=== PATIENT | male | born 1960 | race Caucasian/White ===

== ENCOUNTER 2017-06-24 14:49 | Inpatient (IN) | payer MEDICAID, OTHER ==
[2017-06-24] MEDS ORDERED: methylPREDNISolone 125 MG* 2 ML VIAL IV ONE (15:30)
[2017-06-24] MEDS ORDERED: Albuterol/Ipratropium NEB.SOL* Albuterol 2.5 MG/Ipratropium 0.5 MG 3 ML INH ONE (15:30)
[2017-06-24 15:38] LABS: Mean Corpuscular HGB Conc 32 g/dl (31-36); White Blood Count 5.3 10^3/ul (3.5-10.8)
[2017-06-24 15:42] LABS: Hematocrit 70 % (42-52); Hemoglobin 22.2 g/dl (14.0-18.0); Mean Corpuscular Hemoglobin 32 pg (27-31); Mean Corpuscular Volume 99 fL (80-94); Mean Platelet Volume 9 um3 (7.4-10.4); Red Blood Count 7.01 10^6/ul (4.0-5.4); Red Cell Distribution Width 17 % (10.5-15)
[2017-06-24 15:53] LABS: Add Diff/Slide Review? Slide Review Added; Comments Flag Yes
--- NOTE | 2017-06-24 15:56 | RAD ---
HISTORY: Shortness of breath COMPARISONS: October 12, 2005 VIEWS:1: Single frontal portable view of the chest at 2:33 PM FINDINGS: LINES AND TUBES: None. CARDIOMEDIASTINAL SILHOUETTE: The cardiomediastinal silhouette is normal for portable technique. PLEURA: There are small, bilateral, left greater than right pleural effusions. LUNG PARENCHYMA: There is confluent alveolar opacification of the left lung base ABDOMEN: The upper abdomen is clear. There is no subphrenic gas. BONES AND SOFT TISSUES: No bone or soft tissue abnormalities are noted. IMPRESSION: LEFT BASILAR CONSOLIDATION WITH SMALL BILATERAL, LEFT GREATER THAN RIGHT, PLEURAL EFFUSIONS
[2017-06-24 16:02] LABS: Troponin I 0.05 ng/mL (<0.04)
[2017-06-24 16:17] LABS: Albumin 3.4 g/dL (3.2-5.2); C Reactive Protein 17.83 mg/L (< 5.00); Total Bilirubin 0.8 mg/dL (0.2-1.0)
[2017-06-24 16:48] LABS: BUN/Creatinine Ratio 15.2 (8-20); Calcium 9.1 mg/dL (8.6-10.3); EGFR Non-African American 101.8 (>60); Globulin 3.1 g/dL (2-4); Total Protein 6.6 g/dL (6.4-8.9)
[2017-06-24 16:50] LABS: Potassium 5.6 mmol/L (3.5-5.0)
[2017-06-24] MEDS ORDERED: Furosemide IV* 10 MG/ML 2 ML VIAL (20 MG) IV ONE (17:16)
[2017-06-24] MEDS ORDERED: Sodium Polystyrene ORAL.SOL* 15 GM/60 ML BTL PO ONE (17:17)
[2017-06-24] MEDS ORDERED: Thiamine IV* 100 MG/ML 2 ML VIAL IM ONE (17:27)
[2017-06-24] MEDS ORDERED: Acetaminophen TAB* 325 MG PO PRN (17:27)
--- NOTE | 2017-06-24 17:37 | PN ---
Progress Note - Progress Note Date of Service: 06/24/17 Note: I have discussed this case with Edna Beach NP. Mr Chang is a 56 yo M who has not seen a physician in over 10 years, is an alcoholic though cut down to 3 drinks/day over the last 1 month (from 18), ongoing tobacco abuse who presented to the ER with c/o severe SOB and tiredness. He was found to be markedly hypoxic, now requiring 10L supplemental O2 and markedly cyanotic with tense LE edema and markedly diminished lung sounds and gravid appearing abdomen. 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 He will be admitted to the ICU, receive IV diuresis, urgent cardiology evaluation and echocardiogram. He has numerous other findings incluidng hyponatremia (likely secondary to CHF), HTN and polycythemia likely secondary to chronic hypoxia. I have explained to the patient that he will likely be in the hospital for several days while evaluating and treating his chronic decompensated issues.
[2017-06-24] MEDS ORDERED: LORazepam TAB(*) 1 MG PO SCH (18:00)
[2017-06-24] MEDS ORDERED: Nicotine Inhaler* 10 MG AMP INH PRN (18:42)
[2017-06-24 21:41] LABS: Urine Bacteria Absent (Absent); Urine Bilirubin Negative (Negative); Urine Glucose Negative (Negative); Urine Nitrite Negative (Negative)
[2017-06-24 21:53] LABS: CO2 Carbon Dioxide 35 mmol/L (22-32); Chloride 81 mmol/L (101-111); Sodium 121 mmol/L (133-145)
[2017-06-24 21:55] LABS: Anion Gap 5 mmol/L (2-11)
[2017-06-24] MEDS: Carvedilol TAB* 3.125 MG PO SCH (22:07)
[2017-06-24] MEDS: Heparin VIAL(*) 5000 UNITS/ML VIAL (FIVE THOUSAND) SUBCUT SCH (22:07)
--- NOTE | 2017-06-24 23:19 | HP ---
HISTORY AND PHYSICAL: DATE OF ADMISSION: 06/24/17 PRIMARY CARE PROVIDER: None. ATTENDING PHYSICIAN: Zoey Salomon DO * (dictated by Fariha Beach NP) CHIEF COMPLAINT: Shortness of breath. HISTORY OF PRESENT ILLNESS: Mr. Chang is a 56-year-old male with past medical history significant for alcoholism, tobacco abuse, and hypertension who reports not seeing a physician in over 10 years. The patient states that prior to 1 month ago he drank approximately 18 beers a day and has decreased down to 3 drinks daily over the last month. The patient also reports using a pouch of [id number]-nuwa-uvg tobacco in a day and has decreased its use down to a pouch lasting him 6 to 7 days over the last month. The patient denies any fever, chills, chest pain, nausea, vomiting, urinary symptoms. He does report a productive cough with white mucus. He also reports shortness of breath that he reports is worse with movement and when lying flat he has been needing to sleep on his side. The patient also reports generalized fatigue and being able to get around less than feeling more fatigued over the last month. He also reports increasing bilateral lower extremity and increase in the size of his abdomen. Due to the patient having persistent shortness of breath and tiredness and concern of cyanosis, he decided to present to the emergency room for further evaluation of his symptoms. While in the emergency room, the patient was noted to be markedly hypoxic. He was initially requiring 15 L oxygen via OxyMask and was able to be titrated down to 10 L. The patient was found to have bilateral lower extremity edema, diminished lung sounds, and a very large abdomen. The patient had labs that were significant for BNP of 2115. He was found to be hyponatremic with sodium of 119 and hyperkalemic with potassium of 5.3. He was also found to have polycythemia with a RBC of 7.01, hemoglobin of 22.2 and hematocrit of 70. The patient had an EKG showing sinus rhythm and rate of 79. He also had a chest x- ray showing left basilar consolidation with small bilateral and left greater than right pleural effusions. Hospitalists were asked to evaluate the patient for admission. PAST MEDICAL HISTORY: Hypertension. PAST SURGICAL HISTORY: Status post right total knee replacement in 2005. HOME MEDICATIONS: 1. Multivitamin 1 tablet oral daily. 2. Aspirin 81 mg oral daily. ALLERGIES: CODEINE. FAMILY HISTORY: The patient reports that his maternal grandmother passed from coronary artery disease. His father passed at age 94 from myocardial infarction. His mother passed at age 72 from myocardial infarction. The patient denies any family history of diabetes mellitus. The patient's sister has a history of ovarian cancer. SOCIAL HISTORY: The patient reports drinking 18 beers daily until approximately a month ago when he has cut down to 3 to 6 beers daily. The patient is a heavy current smoker. He reports smoking a pouch of bvva-qgan-heu tobacco daily and decreasing over the last month down to a pouch lasting him 6 to 7 days. The patient reports occasional marijuana use. He is retired. He lives alone. His sons, Wily and Eugene Chang, will be his surrogate decision makers in the event he is unable to make decisions for himself. REVIEW OF SYSTEMS: I performed a 14-point review of systems. All the pertinent positives and negatives are mentioned in the history of present illness. The remaining review of systems is negative. PHYSICAL EXAMINATION GENERAL APPEARANCE: The patient is alert and pleasant. He appears to be in no acute distress, though he is ill appearing. VITAL SIGNS: Temperature 98.4, heart rate 80, respiratory rate 20, O2 sat 97% on 15 L via OxyMask, blood pressure 148/85. HEENT: Normocephalic, atraumatic. Pupils are equal and reactive to light. Extraocular movements are intact. RESPIRATORY: There is no accessory muscle use. Lungs are clear to auscultation bilateral, but significantly decreased. There is some scattered expiratory wheezing noted. CARDIOVASCULAR: Regular rate and rhythm. S1, S2 present. There are no murmurs , rubs or gallops heard. ABDOMEN: Large and distended, gravid appearing, nontender. Hypoactive bowel sounds were present. EXTREMITIES: There is significant lower extremity edema 2 to 3+ bilateral. DP and PT pulses are 1+ and symmetric. MUSCULOSKELETAL: There is cyanosis noted on the fingers and toes. NEUROLOGICAL: The patient is alert and oriented x4. Cranial nerves II through XII are grossly intact. PSYCHOLOGICAL: The patient is calm and cooperative. SKIN: The patient has again cyanosis on his fingers and toes in addition to redness to his bilateral lower extremities, abdomen and arms. The patient also has some cyanosis across the bridge of his nose and into his cheeks. DIAGNOSTIC STUDIES/LABORATORY DATA: Sodium 119, potassium 5.6, chloride 81, CO2 25, BUN 12, creatinine 0.79, glucose 94. White blood cell count 5.3, hemoglobin 22.2, hematocrit 70, and platelet count 111,000. Lactic acid 2.1, troponin 0.05. CRP 17.83. BNP 2115. EKG shows sinus rhythm, rate of 79. The patient has no signs of acute ischemia. There are no previous EKGs for comparison. Chest x-ray from today, radiologist's impression: Left basilar consolidation with small bilateral left greater than right pleural effusions. IMPRESSION: Mr. Chang is a 56-year-old male with past medical history significant for hypertension with no medical care for approximately the last 10 years who presents to the emergency room with complaints of shortness of breath. He will be admitted for shortness of breath and suspected alcoholic cardiomyopathy. ASSESSMENT/PLAN: 1. Shortness of breath. I suspect this is secondary to alcoholic cardiomyopathy. The patient will be monitored on telemetry. We will get an echocardiogram. He will get daily weights, strict I's and O's. We will give him some IV Lasix now, and will ask for Cardiology to consult on the patient tonight. We will also start the patient on low dose beta-joselyn tonight. 2. Acute hypoxic respiratory failure. I suspect this is secondary to the patient's cardiomyopathy. He will be provided with supplemental oxygen. 3. Elevated troponins. We will monitor the patient on telemetry. We will trend his troponins. I suspect this is secondary to demand ischemia from the patient's cardiomyopathy. 4. Hyponatremia. I suspect this is related to the patient's heart failure and fluid overload. We will diurese him and recheck his labs later this evening and again in the morning. 5. Hyperkalemia. We will give the patient Kayexalate, diurese him and recheck his labs later. Again, I suspect this is secondary to his heart failure. 6. Polycythemia. I suspect this is likely secondary to chronic hypoxia. We will recheck labs in the morning. 7. Alcohol abuse. The patient will be placed on WAM protocol. The patient has been highly advised to stop drinking alcohol due to the risk associated with further alcohol use. 8. Tobacco abuse. We will provide the patient with nicotine replacement and he has been highly advised to stop smoking. 9. Hypertension. The patient reports a history of hypertension. He has not been on medications for the last 10 years. He has been hypertensive in the emergency room. We are going to start him on a low dose Coreg b.i.d. 10. Fluids, electrolytes, and nutrition. The patient will be on low-sodium diet. 11. Code status. Full code. 12. DVT prophylaxis. The patient is a high risk and will have subcu heparin. 13. Disposition. Inpatient. TIME SPENT: Time for this admission was approximately 75 minutes and greater than half of that was spent with the patient discussing medications, past medical history and the events leading up to his arrival today, performing a physical examination. The case has been reviewed with the attending, Dr. Salomon, who agrees with the plan of care. Reviewed by FLAVIO KELLER 06/25/17 1132 [id number]/[facility] #: [id number] ELLIE
[2017-06-24 23:57] LABS: Troponin I 0.04 ng/mL (<0.04)
--- NOTE | 2017-06-25 00:01 | CONS ---
CC: Hospitalist Service CARDIOLOGY CONSULTATION NOTE: DATE OF CONSULTATION: 06/24/17 REASON FOR CONSULTATION: Shortness of breath and cyanosis. CHIEF COMPLAINT: Shortness of breath. HISTORY OF PRESENT ILLNESS: Mr. Chang is a 56-year-old gentleman, who does not see physicians regularly. He states that for the past month he has been more short of breath than usual and it has been getting progressively worse. It was very bad today so he decided to come to the emergency department to be evaluated. The patient is a heavy smoker and drinker and says a month ago, he was feeling so overall poorly that he decided to start cutting down, which he has been doing gradually. The patient denies any recent heavy salt foods and no nonsteroidal intake. The patient sleeps flat at night, but awakes very short of breath. When this happens, he stays lying flat and says he hyperventilates until it improves. He admits that his abdomen and legs have been getting more swollen, but he is vague about waking. He denies chest pain, pressure, heaviness, change in bowel or bladder habits. PAST MEDICAL HISTORY: 1. The patient has a past medical history of longstanding alcohol abuse. 2. Hypertension. 3. Smoker. 4. Based on old medical records in 2004, the patient has a history of alcohol related hepatitis, Kathy-Arteaga tear, duodenitis. In 2004, his hemoglobin was 15.4 and hematocrit of 44 and LFTs were elevated. AST of 469, ALT of 320. PAST SURGICAL HISTORY: Includes knee surgery in the distant past and distant appendectomy. OUTPATIENT MEDICATIONS: None. INPATIENT MEDICATIONS: To date include: 1. Thiamine. 2. Kayexalate. 3. Solu-Medrol. 4. Lasix. 5. Ipratropium in the emergency department. 6. Currently on subcutaneous heparin. 7. Ativan p.r.n. 8. Multivitamin with minerals. 9. Nicotine inhaler. 10. B1 tab. ALLERGIES: BEE VENOM, GLUCOSAMINE CHONDROITIN and CODEINE. 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 He has a son in the area, who is supportive and was at the bedside. FAMILY HISTORY: Significant in that his father had a pacemaker, a stroke, and in his 90s, and his mother had a history of congestive heart failure and in her 70s. He had a sister who recently of ovarian cancer. REVIEW OF SYSTEMS: Obtained. The patient denies any fevers or chills. He has an occasional cough and no recent changes. When he does cough, his sputum is millan in color and has been stable for many, many weeks. No acute changes in the sputum. As above, no orthopnea, but he gets paroxysmal nocturnal dyspnea where he feels like he is going to choke and suffocate and wakes hyperventilating. His appetite has been good. I could not elicit a history of weight loss. No hematuria or dysuria and increased abdominal girth noted. Negative for chest pain. All other 14 point review of systems unremarkable. PHYSICAL EXAMINATION: On exam, the patient is 5 feet 7 inches, weight is 282 pounds with a BMI of 44. Vitals: On arrival to the emergency department, blood pressure was 208/102, pulse is 87 and regular, oxygen saturation 65% on room air, and temperature was 97.5. Currently, the patient is on 10 L of oxygen with the saturation of 89% to 93%. Blood pressure 166/125, pulse 76 and regular, afebrile. General Appearance: The patient is an older gentleman, lying at 40 degrees with a Ventimask on. He appears chronically ill with marked duskiness of his skin and he is unkempt. Psychologically, pleasant and cooperative, talkative. Neurologically, awake, alert, and oriented to person and place. I did not evaluate for time. Skin: Lips, nail beds deeply violaceous. This extends to the face, extremities, abdomen. Interestingly, the anterior thorax appears less cyanotic than the rest of his anterior body. HEENT: Pupils are equal and round. Mucous membranes moderately moist. Neck is fixed from obesity without obvious thyromegaly or lymphadenopathy. Respirations: Distant and with fine wheezes throughout anteriorly and posteriorly. Coronary: Also distant S1 and S2. Regular without appreciable murmurs or rubs. Abdomen: Very rotund and firm, nontender. Active bowel sounds. Lower extremities: Deeply violaceous, very edematous up into the thighs. LABORATORY DATA/DIAGNOSTIC DATA: On arrival, white count 5.3, hemoglobin 22.2, hematocrit 70, mean cell volume 99, and platelets 111. Differential is unremarkable. Mild increase in the lymphs. INR 1.02, sodium 119, potassium 5.6 , chloride 81, bicarbonate 25, anion gap 13, BUN 12, creatinine 0.79. Glucose 94, lactic acid 2.1, calcium 9.1, AST 46, ALT 25, alk phos 168, troponin #1 0.05 , C- reactive protein 7.83. BNP 2115. Chest x-ray showed consolidation in the bases bilaterally and pleural effusions bilaterally, poor film overall. A 12-lead ECG done on arrival shows normal sinus rhythm, 80 beats per minute, QS axis +140. He has QS V1 through V3. ST segments unremarkable with motion artifact. Bedside echo done was a difficult study due to his body habitus with history of smoking and significant obesity, which showed a hypertensive hypertrophied left ventricle with normal EF and an enlarged right ventricle that appeared very hypokinetic. Color Doppler settings not optimal, no evidence of significant valvular insufficiency, leaflets opened well on 2D Doppler on aortic, mitral and tricuspid valves. IMPRESSION: In summary, Mr. Chang is a 56-year-old gentleman admitted with a month of progressive dyspnea, he has a history of heavy longstanding alcohol abuse as well as longstanding smoking history, he arrives with marked hyponatremia, hyperkalemia, polycythemia, and hypoxemia. In terms of cardiac contributions to the patient's shortness of breath, it does not appear that left heart dysfunction is a major player although LV diastolic dysfunction is undoubtedly contributing. Right heart failure and cor pulmonale appears significant and is a factor in leg edema and abdominal girth. Marked polycythemia that has been acquired sometime in the last 11 years and his hypoxemia could represent severe profound underlying pulmonary disease, perhaps chronic obstructive pulmonary disease, but there would be a large differential. Polycythemia to this extent can be seen with longstanding congenital heart disease such as ventricular septal defect and Eisenmenger's, but in talking with the patient he as a young man he was a distant runner, so this history would not be compatible with significant congenital cyanotic heart disease, but does not completely rule it out and he should get a full complete echo later this weekend. There is a large differential for acquired/secondary polycythemia including tumor, I would look and evaluate for possible hemochromatosis, which can give left ventricular hypertrophy such as seen on his limited echo. I would consider phlebotomy, but with the assistance of hematology, there are risks associated with this and risk of hyperviscosity and stroke in the setting of marked polycythemia as well. Pulmonary and productive cough with abnormal CXR: I would look for atypical organisms, fungus, tuberculosis in this gentleman as he is immunocompromised, but deferred to the hospitalist critical care and pulmonary in this venue. For the elevated troponins, this is very mild considering his overall presentation but we could check these serially, I am not recommending any sort of stress test at this point in time although he is at high risk for atherosclerotic disease. His family history of congestive heart failure also raises the possibility of congenital heart conditions including hypertrophic cardiomyopathies. For the hyponatremia and hyperkalemia, this raises the possibility of either renal problems or adrenal problems, but again I will defer to Medicine to evaluate this. It could be related to poor delivery to the kidneys as seen in chronic congestive heart failure as per discussions with the Hospitalist, but it seems very profound for this alone. Alcohol could well be a factor Overall, this patient has probably had many of these conditions for a long time , I would move cautiously with corrections including diuresis. I would follow pCO2s carefully as he is at risk for CO2 retention and he has probably been chronically hypoxemic and may tolerate lower levels of oxygen better than higher levels of CO2 retention. We will follow him actively with you and additional recommendations will be made pending findings with his diagnostic workup and pending his response to gentle diuresis. Full echo will be completed Tuesday06/26/17. Thank you for allowing us to assist in this nice but complex gentleman's care. [id number]/[facility] #: [id number] ELLIE
[2017-06-25] MEDS: Heparin VIAL(*) 5000 UNITS/ML VIAL (FIVE THOUSAND) SUBCUT SCH (06:02)
[2017-06-25 06:18] LABS: Comments Flag Yes; Hematocrit 68 % (42-52); Hemoglobin 21.7 g/dl (14.0-18.0); Mean Corpuscular HGB Conc 32 g/dl (31-36); Mean Corpuscular Hemoglobin 32 pg (27-31); Mean Corpuscular Volume 99 fL (80-94); Mean Platelet Volume 9 um3 (7.4-10.4); Red Blood Count 6.88 10^6/ul (4.0-5.4); Red Cell Distribution Width 17 % (10.5-15); White Blood Count 4.4 10^3/ul (3.5-10.8)
[2017-06-25 06:19] LABS: Add Diff/Slide Review? Slide Review Added
[2017-06-25 06:31] LABS: BUN/Creatinine Ratio 17.9 (8-20); Blood Urea Nitrogen 14 mg/dL (6-24); CO2 Carbon Dioxide 29 mmol/L (22-32); Calcium 8.9 mg/dL (8.6-10.3); Chloride 82 mmol/L (101-111); EGFR African American 132.9 (>60); EGFR Non-African American 103.3 (>60); Glucose 128 mg/dL (70-100)
[2017-06-25 06:36] LABS: Sodium 117 mmol/L (133-145)
[2017-06-25 06:37] LABS: Anion Gap 6 mmol/L (2-11)
[2017-06-25 07:01] LABS: Total Iron Binding Capacity 400 mcg/dL (250-450); Transferrin 286 mg/dL (203-362)
[2017-06-25 07:32] LABS: Ferritin 109.6 ng/mL (24-336)
--- NOTE | 2017-06-25 09:51 | PN ---
Subjective Date of Service: 06/25/17 Interval History: Pt is obtunded this AM. He does not answer any questions. Objective Active Medications: Acetaminophen (Tylenol Tab*) 650 mg PO Q4H PRN PRN Reason: PAIN Aspirin (Aspirin Ec Low Dose*) 81 mg PO DAILY [facility] Carvedilol (Coreg Tab*) 3.125 mg PO BID [facility] Last Admin: 06/24/17 22:07 Dose: 3.125 mg Folic Acid (Folvite Tab*) 1 mg PO DAILY [facility] Heparin Sodium (Porcine) (Heparin Vial(*)) 5,000 units SUBCUT Q8HR [facility] Last Admin: 06/25/17 06:02 Dose: 5,000 units Lorazepam (Ativan Tab(*)) 0 - 6 mg PO .PER [facility] PROTOCOL [facility] PRN Reason: Protocol Multivitamins/Minerals (Theragran/Minerals Tab*) 1 tab PO DAILY [facility] Nicotine (Nicotine Inhaler*) 10 mg INH Q2H PRN PRN Reason: CRAVING Thiamine HCl (Vitamin B-1 Tab*) 100 mg PO DAILY [facility] Vital Signs 06/24/17 06/24/17 06/24/17 17:27 17:30 17:42 Temperature 98.1 F Pulse Rate 74 75 Respiratory 20 20 Rate Blood Pressure 169/120 166/129 (mmHg) O2 Sat by Pulse 92 94 Oximetry 06/24/17 06/24/17 06/24/17 18:00 18:01 18:22 Temperature Pulse Rate 41 78 Respiratory 20 17 Rate Blood Pressure 166/129 (mmHg) O2 Sat by Pulse 85 95 Oximetry 06/24/17 06/24/17 06/24/17 18:31 18:45 19:00 Temperature Pulse Rate 78 79 76 Respiratory 21 25 22 Rate Blood Pressure 178/122 161/130 161/116 (mmHg) O2 Sat by Pulse 96 94 94 Oximetry 06/24/17 06/24/17 06/24/17 19:30 20:00 20:01 Temperature 98.3 F Pulse Rate 76 77 77 Respiratory 22 18 18 Rate Blood Pressure 166/125 176/143 (mmHg) O2 Sat by Pulse 93 85 89 Oximetry 06/24/17 06/24/17 06/24/17 20:15 20:30 20:36 Temperature Pulse Rate 82 80 Respiratory 17 22 Rate Blood Pressure 168/128 166/126 (mmHg) O2 Sat by Pulse 87 91 91 Oximetry 06/24/17 06/24/17 06/24/17 20:45 21:00 21:01 Temperature Pulse Rate 80 78 75 Respiratory 17 18 15 Rate Blood Pressure 161/126 146/116 (mmHg) O2 Sat by Pulse 89 90 92 Oximetry 06/24/17 06/24/17 06/24/17 21:15 21:31 21:47 Temperature Pulse Rate 79 81 78 Respiratory 15 21 26 Rate Blood Pressure 170/112 136/110 143/117 (mmHg) O2 Sat by Pulse 92 90 86 Oximetry 06/24/17 06/24/17 06/24/17 22:00 22:01 22:16 Temperature Pulse Rate 77 75 74 Respiratory 22 16 19 Rate Blood Pressure 157/100 144/92 (mmHg) O2 Sat by Pulse 91 89 91 Oximetry 06/24/17 06/24/17 06/24/17 22:30 22:46 23:00 Temperature Pulse Rate 79 81 77 Respiratory 18 18 17 Rate Blood Pressure 146/104 130/105 (mmHg) O2 Sat by Pulse 91 90 90 Oximetry 06/24/17 06/24/17 06/24/17 23:01 23:02 23:30 Temperature Pulse Rate 78 78 74 Respiratory 22 14 11 Rate Blood Pressure 131/97 112/88 (mmHg) O2 Sat by Pulse 90 91 87 Oximetry 06/25/17 06/25/17 06/25/17 00:00 00:01 00:35 Temperature 98.3 F Pulse Rate 72 77 75 Respiratory 17 17 11 Rate Blood Pressure 100/76 140/83 (mmHg) O2 Sat by Pulse 79 82 91 Oximetry 06/25/17 06/25/17 06/25/17 01:00 01:01 02:00 Temperature Pulse Rate 71 71 73 Respiratory 12 17 Rate Blood Pressure 124/92 (mmHg) O2 Sat by Pulse 87 88 90 Oximetry 06/25/17 06/25/17 06/25/17 02:01 02:08 03:00 Temperature Pulse Rate 75 73 Respiratory 12 13 15 Rate Blood Pressure 119/104 120/78 (mmHg) O2 Sat by Pulse 96 89 Oximetry 06/25/17 06/25/17 06/25/17 03:02 04:00 05:00 Temperature 98.0 F Pulse Rate 75 139 74 Respiratory 13 17 18 Rate Blood Pressure 117/92 (mmHg) O2 Sat by Pulse 88 81 89 Oximetry 06/25/17 06/25/17 06/25/17 05:44 06:00 06:24 Temperature Pulse Rate 80 75 74 Respiratory 17 19 16 Rate Blood Pressure 119/99 130/109 124/104 (mmHg) O2 Sat by Pulse 91 90 89 Oximetry 06/25/17 07:40 Temperature 97.9 F Pulse Rate Respiratory Rate Blood Pressure (mmHg) O2 Sat by Pulse Oximetry Oxygen Devices in Use Now: Simple Face Mask - 12L-88% Appearance: Middle aged chronically ill appearing male sitting up in bed poorly responsive to sternal rub, NAD Eyes: No Scleral Icterus Ears/Nose/Mouth/Throat: Mucous Membranes Moist Respiratory: Symmetrical Chest Expansion and Respiratory Effort, - - diminished breath sounds in all lung nova Cardiovascular: NL Sounds; No Murmurs; No JVD, RRR, - - slightly improved LE edema Abdominal: - - Abdomen is distended, soft, pt does not grimace to palpation, abdominal wall is cyanotic Extremities: No Clubbing, Cyanosis Skin: No Rash or Ulcers, No Nodules or Sclerosis Neurological: - - minimally responsive to painful stimulus Result Diagrams: 06/25/17 06:06 06/25/17 06:06 Microbiology and Other Data: Microbiology 06/25/17 00:10 Gram Stain - Final Sputum 06/24/17 18:10 Nasal Screen MRSA (PCR)(ERNIKE) - Final Nasal Mrsa Negative Assess/Plan/Problems-Billing Mr Chang is a 56 yo M who has not had any medical care in about 12 years who has a previous history of HTN and a history of ongoing tobacco and alcohol abuse who presented to the ER with c/o feeling tired, weak, SOB and cyanotic. - Patient Problems (1) Obtundation Current Visit: Yes Status: Acute Code(s): R40.1 - STUPOR SNOMED Code(s): 62930299 Comment: I suspect the patient has now developed acute hypercarbic respiratory failure in addition to chronic hypoxic respiratory failure. ABG is unable to be run currently. Will empirically place the patient on BiPAP. Dr. Vaughn to take over the care of the patient going forward. (2) Acute decompensated heart failure Current Visit: Yes Status: Acute Code(s): I50.9 - HEART FAILURE, UNSPECIFIED SNOMED Code(s): 32625818 Comment: The concern on admission was for both left and right heart failure secondary to alcohol use and probable COPD. He received 20mg IV lasix last night and had some mild improvement in his LE edema. His LV cavity however is small and currently he should not be diuresed any further. (3) Cor pulmonale, chronic Current Visit: Yes Status: Acute Code(s): I27.81 - COR PULMONALE (CHRONIC) SNOMED Code(s): 22467415 Comment: Dr. Keita performed a quick bedside echo last night and again this AM that likely reveals R heart failure with cor pulmonale. Diuresis must be done extremely carefully as his LV cavity is small. (4) COPD (chronic obstructive pulmonary disease) Current Visit: Yes Status: Acute Code(s): J44.9 - CHRONIC OBSTRUCTIVE PULMONARY DISEASE, UNSPECIFIED SNOMED Code(s): 76162385 Comment: The patient likely has COPD from his many years of smoking. ABG is unable to be run at this time due to the patient's blood being too viscous. (5) Polycythemia vera, acquired Current Visit: Yes Status: Acute Code(s): D75.1 - SECONDARY POLYCYTHEMIA SNOMED Code(s): 94704185 Comment: The patient was found to have a markedly elevated Hb and Hct. Will consult Dr. Westbrook-? evaluation (chronic hypoxia vs other cause of acquired polycythemia vera) and treatment-?phlebotomy. Continue ASA for now. (6) HTN (hypertension) Current Visit: Yes Status: Acute Code(s): I10 - ESSENTIAL (PRIMARY) HYPERTENSION SNOMED Code(s): 51749558 Comment: The patient was markedly hypertensive in the ER, now much improved with the initiation of coreg 3.125mg BID. His last pressure however is low with a systolic in the 90's. Will need to monitor his pressure closely. (7) Hyponatremia Current Visit: Yes Status: Acute Code(s): E87.1 - HYPO-OSMOLALITY AND HYPONATREMIA SNOMED Code(s): 61605375 Comment: The patient remains hyponatremic. Urine Na 24. ? secondary to beer drinkers potomania, CHF (8) Hyperkalemia Current Visit: Yes Status: Acute Code(s): E87.5 - HYPERKALEMIA SNOMED Code (s): 66740855 Comment: Cause is unclear now the lab can not run his specimen due to hemolysis. Will try to get a repeat lab later today. (9) DVT prophylaxis Current Visit: Yes Status: Acute Code(s): YMX9820 - SNOMED Code(s): 424982432 Comment: SQ heparin (10) Full code status Current Visit: Yes Status: Acute Code(s): Z78.9 - OTHER SPECIFIED HEALTH STATUS SNOMED Code(s): 913704853
[2017-06-25] MEDS ORDERED: Albuterol/Ipratropium NEB.SOL* Albuterol 2.5 MG/Ipratropium 0.5 MG 3 ML ONE (09:55)
[2017-06-25] MEDS ORDERED: Albuterol/Ipratropium NEB.SOL* Albuterol 2.5 MG/Ipratropium 0.5 MG 3 ML INH PRN (09:55)
[2017-06-25] MEDS ORDERED: methylPREDNISolone 125 MG* 2 ML VIAL IV ONE (09:56)
--- NOTE | 2017-06-25 10:18 | PN ---
Subjective Date of Service: 06/25/17 - CC: SOB Interval History: The pt is somnolent on 12 NC, unable to provide a history. Medications Active Medications: Acetaminophen (Tylenol Tab*) 650 mg PO Q4H PRN PRN Reason: PAIN Albuterol/Ipratropium (Duoneb (Albuterol 2.5 Mg/Ipratropium 0.5 Mg)) 1 neb INH Q2H PRN PRN Reason: SOB/WHEEZING Aspirin (Aspirin Ec Low Dose*) 81 mg PO DAILY [facility] Carvedilol (Coreg Tab*) 3.125 mg PO BID [facility] Last Admin: 06/24/17 22:07 Dose: 3.125 mg Folic Acid (Folvite Tab*) 1 mg PO DAILY [facility] Heparin Sodium (Porcine) (Heparin Vial(*)) 5,000 units SUBCUT Q8HR [facility] Last Admin: 06/25/17 06:02 Dose: 5,000 units Heparin Sodium (Porcine) (Heparin Vial(*)) 0 units IV .PER [facility] PRN Reason: Protocol Heparin Sodium/Dextrose (Heparin Drip 25,000 Units(*)) 25,000 units in 500 mls @ 0 mls/hr IV .NO INITIAL BOLUS [facility]; As Directed PRN Reason: Protocol Lorazepam (Ativan Tab(*)) 0 - 6 mg PO .PER [facility] PROTOCOL [facility] PRN Reason: Protocol Methylprednisolone Sodium Succinate (Solu-Medrol 40 Mg) 60 mg IV Q8H [facility] Multivitamins/Minerals (Theragran/Minerals Tab*) 1 tab PO DAILY [facility] Nicotine (Nicotine Inhaler*) 10 mg INH Q2H PRN PRN Reason: CRAVING Thiamine HCl (Vitamin B-1 Tab*) 100 mg PO DAILY [facility] Objective Vital Signs: Temp Pulse Resp BP Pulse Ox 97.9 F 74 16 124/104 89 06/25/17 07:40 06/25/17 06:24 06/25/17 06:24 06/25/17 06:24 06/25/17 06:24 Oxygen Devices in Use Now: CPAP/BiPAP - 12L-88% Appearance: Obese, lying at 30 degrees, marked violacious cyanosis of the face, extremities and abdoman, sparing the thorax. Eyes open, appears confused. Eyes: PERRLA Ears/Nose/Mouth/Throat: Mucous Membranes Moist Neck: No Thyroid Enlargement, Masses Respiratory: Symmetrical Chest Expansion and Respiratory Effort - more air movement today, wet coarse rhonchi and diffuse wheezing. Cardiovascular: NL Sounds; No Murmurs; No JVD, RRR Abdominal: - - marked drum like distension, +BS Extremities: - - Cyanotic nail beds, deep, edema of LE and upper extremities, somewhat improved. Neurological: - - somnolent, arousable, not able to answer questions. I suspect hypercarbia. Lines/Tubes/Other Access: Clean, Dry and Intact Peripheral IV Laboratory Results: 06/25/17 06:06 06/25/17 06:06 INR (Anticoag Therapy) 1.02 (0.89-1.11) 06/24/17 15:20 Total Bilirubin 0.80 mg/dL (0.2-1.0) 06/24/17 15:20 AST 46 U/L (13-39) H 06/24/17 15:20 ALT 25 U/L (7-52) 06/24/17 15:20 Alkaline Phosphatase 168 U/L (34-104) H 06/24/17 15:20 B-Natriuretic Peptide 2115 pg/mL (-100) H 06/24/17 15:20 Total Protein 6.6 g/dL (6.4-8.9) 06/24/17 15:20 Albumin 3.4 g/dL (3.2-5.2) 06/24/17 15:20 Globulin 3.1 g/dL (2-4) 06/24/17 15:20 Albumin/Globulin Ratio 1.1 (1-3) 06/24/17 15:20 06/24/17 21:25 Troponin I 0.04 H* Diagnostic Imaging: Re echo at bedside today: Confirmed RV dilation, hypertrophy and severe hypokinesis. LV hypertrophy and post diuresis LV chamber diameter appears smaller today. LVEF visually estimated at 60%, limited views. No gross valve issues. EKG Data: Monitor: NSR Assessment/Plan 56 yo with hx heavy tobacco and alcohol use, hx longstanding HTN presenting with CC of SOB, progressive over weeks found to be markedly hypoxic, cyanotic, with profound polycythemia, hyponatremia and hyperkalemia and volume overloaded. Echo evicence of Cor Pulmonale and hypertensive left heart disease. Today less alert. Points of Discussion: Cor pulmonale: -BP has dropped with diuresis. RV will need adequate preload. -I recommend not further diuresising. -Coreg will be stopped for now. Full echo will be able to be done tomorrow. LVH + HTN: -LV appears underfilled today. -Future options if BP re elevates: rate lowering CCB might be better tolerated than a beta joselyn. Pure beta joselyn might help with diastolic filling but could lead to more bronchospasm, a cardioselective BB might be preferable if trialed. Polycythemia: -doubt secondary to cardiopulmonary shunting based on history/old records. -work up in progress via hospitalists. -await hematology input. Troponin elevation: -mild, likely due to systemic hypoxia. -no indication for stress test or cardiac cath at this time. -Supportive care of other systemic problems. This patient is a high risk patient and highly complex.
[2017-06-25] MEDS: Heparin DRIP 25,000 UNITS(*) 25,000 UNITS/500 ML BAG IV SCH (10:49)
--- NOTE | 2017-06-25 10:51 | CONSULT ---
Consult Consult: Consultation Note Critical Care Requesting Physician: Dr Zoey Salomon Reason for consult: cyanosis, resp distress Limitations in history/physical: delirium, history from chart and staff. Date of consult: 06/25/2017 HPI: 56y M pmhx alcoholism but has been cutting back, tobacco abuse (rolls own tobacco), hypertension; no prior followup with a physician for 10 years. Admitted yesterday for shortness of breath on exertion. He stated he has been cutting back alcohol for the past month. He rolls his own tobacco. He presented with tachypnea, weakness. He was also cyanotic and hypoxic to 70s in the ER. Started on O2, 15L, titrated down to 10L. Initial CXR demonstrated possible left lower lobe infiltrate retrocardiac, but he remains afebrile and without elevated WBC. He was admitted to the ICU. Asked to see patient for lethargy. he appears cyanotic, more lethargic, unable to obtain history. remains on 12L facemask. dec RR. arousable though. History limited due to lethargy/delirium ROS: Limited to the delirium, resp status PMHx: HTN PSHx: right TKR 2005 Family History: CAD in grandmother. Father passed at 94yrs age from [place]. Mother passed at 72yrs age from [place]. Sister with Ovarian Ca. Social History: Alcohol use 18 beers daily up until 1 month back, now 3-6beers daily. A puch a day of tobacco to a pouch per 6-7 days. Occassional marijuana use. Lived alone. Allergies: Allergies Allergy/AdvReac Type Severity Reaction Status Date / Time Bee Venom Allergy Difficulty Verified 06/24/17 18:13 Breathing Codeine Allergy Difficulty Verified 06/24/17 18:13 Breathing Home Medications: Aspirin EC Low Dose* [Ecotrin EC Low Dose 81 MG*] 81 mg PO DAILY 06/24/17 [ History Confirmed 06/24/17] Multivitamins/Minerals TAB* [Theragran/minerals TAB*] 1 tab PO DAILY 06/24/17 [ History Confirmed 06/24/17] Tele: NSR Vitals: Vital Signs Temp 97.9 F 06/25/17 07:40 Pulse 76 06/25/17 10:08 Resp 16 06/25/17 10:01 BP 106/67 06/25/17 10:01 Pulse Ox 92 08/19/17 10:08 Intake & Output 06/24/17 06/25/17 06/25/17 18:59 06:59 18:59 Intake Total 800 Output Total 1150 Balance -350 Weight 282 lb 3.067 oz 278 lb 0.046 oz Intake: Oral 800 Output: Urine 1150 Other: Date of Last Bowel 06/24/17 Movement O2/Vent: facemask 12L; now switched to NIV 15/5, tv 400, rr 14-18, mV from 5-6 and now 8; sats 90% Infusions: heplock Current Medications: Acetaminophen (Tylenol Tab*) 650 mg PO Q4H PRN PRN Reason: PAIN Albuterol/Ipratropium (Duoneb (Albuterol 2.5 Mg/Ipratropium 0.5 Mg)) 1 neb INH Q2H PRN PRN Reason: SOB/WHEEZING Aspirin (Aspirin Ec Low Dose*) 81 mg PO DAILY BERTIN Folic Acid (Folvite Tab*) 1 mg PO DAILY BERTIN Heparin Sodium (Porcine) (Heparin Vial(*)) 0 units IV .PER PROTOCOL BERTIN PRN Reason: Protocol Heparin Sodium/Dextrose (Heparin Drip 25,000 Units(*)) 25,000 units in 500 mls @ 0 mls/hr IV .NO INITIAL BOLUS BERTIN; As Directed PRN Reason: Protocol Lorazepam (Ativan Tab(*)) 0 - 6 mg PO .PER [facility] PROTOCOL BERTIN PRN Reason: Protocol Methylprednisolone Sodium Succinate (Solu-Medrol 40 Mg) 60 mg IV Q8H BERTIN Multivitamins/Minerals (Theragran/Minerals Tab*) 1 tab PO DAILY BERTIN Nicotine (Nicotine Inhaler*) 10 mg INH Q2H PRN PRN Reason: CRAVING Thiamine HCl (Vitamin B-1 Tab*) 100 mg PO DAILY BERTIN Physical Exam: General: somnolent, nonverbal initially; cyanotic appearin in ext/face. shallow respirations.l Head: normocephalic, atraumatic HEENT: no pallor, no icterus, moist mucous membranes Neck: soft, supple, no jvd, no stridor CVS: normal rate, normal rhythm, no murmur Resp: bilateral air entry, no rhales, bilateral wheezing/rhonchi diffusely, no acc muscle use; shallow breaths initially, rr was 10 Abdomen: soft, obese, nontender, nondistended, bowel sounds present Ext: pulses+, warm, edema2+ with chronic changes Skin: intact, no breakdown, no dryness Neuro: was not very alert, awake, moves ext spontaneously; now more alert/awake after NIV, speaking more, slightly less cyanotic. Labs: Laboratory Results - last 24 hr 06/24/17 06/24/17 06/24/17 15:20 15:20 15:20 WBC 5.3 RBC 7.01 H Hgb 22.2 H Hct 70 H MCV 99 H MCH 32 H MCHC 32 RDW 17 H Plt Count 111 L MPV 9 Neut % (Auto) 76.2 Lymph % (Auto) 14.3 L [place] % (Auto) 8.3 Eos % (Auto) 0.9 Baso % (Auto) 0.3 Absolute Neuts (auto) 4.0 Absolute Lymphs (auto) 0.8 L Absolute Monos (auto) 0.4 Absolute Eos (auto) 0 Absolute Basos (auto) 0 Absolute Nucleated RBC 0.22 Nucleated RBC % 4.1 INR (Anticoag Therapy) 1.02 Patient Temperature ABG pH ABG pH (Temp Correct) ABG pCO2 ABG pCO2 (Temp Corrct ABG pO2 ABG pO2 (Temp Correct ABG HCO3 ABG O2 Saturation ABG Base Excess Respiration Rate O2 Delivery Device Ventilator Type Vent Mode FiO2 Inspiratory Time PEEP Pressure Support Pressure Control EPAP IPAP BiPAP Sodium 119 L* Potassium 5.6 H Chloride 81 L Carbon Dioxide 25 Anion Gap 13 H BUN 12 Creatinine 0.79 Est GFR ( Amer) 131.0 Est GFR (Non-Af Amer) 101.8 BUN/Creatinine Ratio 15.2 Glucose 94 Lactic Acid Calcium 9.1 Iron TIBC % Saturation Unsat Iron Binding Ferritin Total Bilirubin 0.80 AST 46 H ALT 25 Alkaline Phosphatase 168 H Troponin I 0.05 H* C-Reactive Protein 17.83 H B-Natriuretic Peptide Total Protein 6.6 Albumin 3.4 Globulin 3.1 Albumin/Globulin Ratio 1.1 Urine Color Urine Appearance Urine pH Ur Specific [place] Urine Protein Urine Ketones Urine Blood Urine Nitrate Urine Bilirubin Urine Urobilinogen Ur Leukocyte Esterase Urine WBC (Auto) Urine RBC (Auto) Urine Bacteria Ur Random Sodium Urine Glucose 06/24/17 06/24/17 06/24/17 15:20 15:20 18:50 WBC RBC Hgb Hct MCV MCH MCHC RDW Plt Count MPV Neut % (Auto) Lymph % (Auto) [place] % (Auto) Eos % (Auto) Baso % (Auto) Absolute Neuts (auto) Absolute Lymphs (auto) Absolute Monos (auto) Absolute Eos (auto) Absolute Basos (auto) Absolute Nucleated RBC Nucleated RBC % INR (Anticoag Therapy) Patient Temperature ABG pH ABG pH (Temp Correct) ABG pCO2 ABG pCO2 (Temp Corrct ABG pO2 ABG pO2 (Temp Correct ABG HCO3 ABG O2 Saturation ABG Base Excess Respiration Rate O2 Delivery Device Ventilator Type Vent Mode FiO2 Inspiratory Time PEEP Pressure Support Pressure Control EPAP IPAP BiPAP Sodium Potassium Chloride Carbon Dioxide Anion Gap BUN Creatinine Est GFR ( Amer) Est GFR (Non-Af Amer) BUN/Creatinine Ratio Glucose Lactic Acid 2.1 H* Calcium Iron TIBC % Saturation Unsat Iron Binding Ferritin Total Bilirubin AST ALT Alkaline Phosphatase Troponin I C-Reactive Protein B-Natriuretic Peptide 2115 H Total Protein Albumin Globulin Albumin/Globulin Ratio Urine Color Urine Appearance Urine pH Ur Specific [place] Urine Protein Urine Ketones Urine Blood Urine Nitrate Urine Bilirubin Urine Urobilinogen Ur Leukocyte Esterase Urine WBC (Auto) Urine RBC (Auto) Urine Bacteria Ur Random Sodium 24 Urine Glucose 06/24/17 06/24/17 06/24/17 20:30 21:25 21:25 WBC RBC Hgb Hct MCV MCH MCHC RDW Plt Count MPV Neut % (Auto) Lymph % (Auto) [place] % (Auto) Eos % (Auto) Baso % (Auto) Absolute Neuts (auto) Absolute Lymphs (auto) Absolute Monos (auto) Absolute Eos (auto) Absolute Basos (auto) Absolute Nucleated RBC Nucleated RBC % INR (Anticoag Therapy) Patient Temperature Cancelled ABG pH Cancelled ABG pH (Temp Correct) Cancelled ABG pCO2 Cancelled ABG pCO2 (Temp Corrct Cancelled ABG pO2 Cancelled ABG pO2 (Temp Correct Cancelled ABG HCO3 Cancelled ABG O2 Saturation Cancelled ABG Base Excess Cancelled Respiration Rate Cancelled O2 Delivery Device Cancelled Ventilator Type Cancelled Vent Mode Cancelled FiO2 Cancelled Inspiratory Time Cancelled PEEP Cancelled Pressure Support Cancelled Pressure Control Cancelled EPAP Cancelled IPAP Cancelled BiPAP Cancelled Sodium 121 L Potassium TNP Chloride 81 L Carbon Dioxide 35 H Anion Gap 5 BUN Creatinine Est GFR ( Amer) Est GFR (Non-Af Amer) BUN/Creatinine Ratio Glucose Lactic Acid Calcium Iron TIBC % Saturation Unsat Iron Binding Ferritin Total Bilirubin AST ALT Alkaline Phosphatase Troponin I 0.04 H* C-Reactive Protein B-Natriuretic Peptide Total Protein Albumin Globulin Albumin/Globulin Ratio Urine Color Yellow Urine Appearance Clear Urine pH 5.0 Ur Specific [place] 1.003 L Urine Protein 2+(100 mg/dl) H Urine Ketones Negative Urine Blood 1+ H Urine Nitrate Negative Urine Bilirubin Negative Urine Urobilinogen Negative Ur Leukocyte Esterase Negative Urine WBC (Auto) Trace(0-5/hpf) Urine RBC (Auto) Trace(0-2/hpf) Urine Bacteria Absent Ur Random Sodium Urine Glucose Negative 06/25/17 06/25/17 06/25/17 06:06 06:06 09:30 WBC 4.4 RBC 6.88 H Hgb 21.7 H Hct 68 H MCV 99 H MCH 32 H MCHC 32 RDW 17 H Plt Count 114 L MPV 9 Neut % (Auto) 93.6 H Lymph % (Auto) 4.2 L [place] % (Auto) 1.1 Eos % (Auto) 0 Baso % (Auto) 1.1 Absolute Neuts (auto) 4.2 Absolute Lymphs (auto) 0.2 L Absolute Monos (auto) 0 Absolute Eos (auto) 0 Absolute Basos (auto) 0 Absolute Nucleated RBC 0.28 Nucleated RBC % 6.3 INR (Anticoag Therapy) Patient Temperature Cancelled ABG pH Cancelled ABG pH (Temp Correct) Cancelled ABG pCO2 Cancelled ABG pCO2 (Temp Corrct Cancelled ABG pO2 Cancelled ABG pO2 (Temp Correct Cancelled ABG HCO3 Cancelled ABG O2 Saturation Cancelled ABG Base Excess Cancelled Respiration Rate Cancelled O2 Delivery Device Cancelled Ventilator Type Cancelled Vent Mode Cancelled FiO2 Cancelled Inspiratory Time Cancelled PEEP Cancelled Pressure Support Cancelled Pressure Control Cancelled EPAP Cancelled IPAP Cancelled BiPAP Cancelled Sodium 117 L* Potassium TNP Chloride 82 L Carbon Dioxide 29 Anion Gap 6 BUN 14 Creatinine 0.78 Est GFR ( Amer) 132.9 Est GFR (Non-Af Amer) 103.3 BUN/Creatinine Ratio 17.9 Glucose 128 H Lactic Acid Calcium 8.9 Iron TNP TIBC 400 % Saturation TNP Unsat Iron Binding TNP Ferritin 109.6 Total Bilirubin AST ALT Alkaline Phosphatase Troponin I C-Reactive Protein B-Natriuretic Peptide Total Protein Albumin Globulin Albumin/Globulin Ratio Urine Color Urine Appearance Urine pH Ur Specific [place] Urine Protein Urine Ketones Urine Blood Urine Nitrate Urine Bilirubin Urine Urobilinogen Ur Leukocyte Esterase Urine WBC (Auto) Urine RBC (Auto) Urine Bacteria Ur Random Sodium Urine Glucose Imaging: cxr 06/24 - reviewed - left consolidation ? Bedside ECHo by cardiolgoy today - dilated RV, appears hypertrophic; LV thick and small cavity. no pericardial effusion seen. Assessment: 56y M pmhx alcoholism but has been cutting back, tobacco abuse ( rolls own tobacco), hypertension; admitted for shortness of breath, cyanosis, hypoxia; this morning more cyanotic, lethargic, diffuse wheezing. Found to have polycythemia on admission. -Acute Hypoxic Respiratory Failure -Possible left lower lobe infiltrate? -Acute COPD exaccerbation -Cor Pulmonale -Polycythemia -Thrombocytopenia -Hyponatremia -Hyperkalemia -Encephelopathy, hypoxic/metabolic induced -Alcohol abuse -Tobacco Use Plan: Neuro- encephelopathy improved post NIV now. more alert. neurochecks q4h. asp prec. delirium prec. avoid bdz/sedatives for now. CVS- BP initially dropped earlier. given lasix overnight/yesterday. ECHO appears to show corpulmonale. need to rule out underlying pulmonary hypertension either from diastolic heart fialure or possible underlying obstructive lung disease. hold further diuretics. official ECHO in AM. WIll obtain CTA chest today. no BB/ACEI for now. tropoins borderline in setting of hypoxia. EKG NSR. Resp- on NIV now. started on steroids and bronchodilators. Definite significant smoking history with dilated RV, mosly likely will have severe lung disease. need PFTs at some point. CXR doesnt appear hyperinflated. CTA today to r/o PE and eval Lungs given hypoxia. Cont COPD exacc management. ABG performed now and overnight but keeps clotting. Will start heparin IV, started on asa also for polycythemia. Clinically improved after NIV. Repeat ABG or even VBG now. Start ceftriaxone, afebrile/no wbc elevation. pending CT chest. ID- afebrile, wbc normal. Ceftriaxone for now till CTA complete. GI- NPO for now while on NIV. GI prophylaxis. Renal- Cr normal. No acidosis. Noted hyperkalemia, unable to obtain repeat K today. Repeat labs being sent again. Hyponatremia in setting of elevated BNP. May be from chronic heart failure. Lasix trial given without benefit and BP dropped. May given small bolus IVF back if BP drops again. Heme- polycythemia noted . Markedly high for chronic hypoxia. Will need PCV w/u though 2004 h/h more normal. May be secondary but heme consulted for possible phlebotomy. He has hyperviscosity. Started on aspirin. Due to clotting of lab work, started on heparin IV now too. Thrombocytopenic to 115k, no bleeding noted. Endo- glycemic control. Target bs<200 Musculsk- pressure ulcer prophylaxis Wounds- none Nutrition- NPO DVT prophylaxis: compression boots, heparin IV GI prophylaxis: pepcid Central Line: no Arterial Line: no [place]edo Cathetor: no Disposition: ICU for hypoxic respiratory failure Code Status: full code Total Critical Care time is 50 minutes, excluding procedures/teaching Alfredo Vaughn MD Speech Communication Professor (Electronically Signed)
[2017-06-25 10:59] LABS: HDL Cholesterol 64.5 mg/dL; Hematocrit 70 % (42-52); Hemoglobin 22.4 g/dl (14.0-18.0); Mean Corpuscular HGB Conc 32 g/dl (31-36); Mean Corpuscular Hemoglobin 32 pg (27-31); Mean Corpuscular Volume 101 fL (80-94); Red Blood Count 6.91 10^6/ul (4.0-5.4); Red Cell Distribution Width 18 % (10.5-15); White Blood Count 5.2 10^3/ul (3.5-10.8)
[2017-06-25 11:00] LABS: Add Diff/Slide Review? Slide Review Added; Comments Flag Yes
[2017-06-25] MEDS ORDERED: Heparin VIAL(*) 5000 UNITS/ML VIAL (FIVE THOUSAND) IV SCH (11:00)
[2017-06-25 11:23] LABS: Macrocytosis 1+; Platelet Morphology Large
[2017-06-25 11:24] LABS: Add Path Review? YES; Mean Platelet Volume 9 um3 (7.4-10.4); Polychromasia 1+
[2017-06-25] MEDS: Aspirin EC Low Dose* 81 MG TAB.EC PO SCH (11:51)
[2017-06-25] MEDS: Folic Acid TAB* 1 MG PO SCH (11:56)
[2017-06-25] MEDS: Thiamine TAB* 100 MG TAB PO SCH (11:56)
[2017-06-25] MEDS: Multivitamins/Minerals TAB PO SCH (11:56)
--- NOTE | 2017-06-25 12:48 | ED ---
Andrea Parham Nikita, scribed for Lucien Méndez MD on 06/24/17 at 1507 . Shortness of Breath - HPI Summary HPI Summary: Pt is a 56 yo M presenting to the ED c/o SOB since a month ago. States he's "afraid I can't make it out the front door". Sx aggravated by exertion and lying flat and alleviated by nothing. Pt heavily smokes everyday and up until a month ago, he had 18 beers a day. He now has it down to 3 beers a day. Currently not taking any medicine. Last time he saw his PCP was 10 years ago when he had his knee surgery. Pt reports he can only sleep on his side and is concerned about cyanosis. - History of Current Complaint Chief Complaint: EDShortnessOfBreath Time Seen by Provider: 06/24/17 15:05 Hx Obtained From: Patient Onset/Duration: Lasting Weeks - 1 month ago, Still Present Current Severity: Severe Dyspnea At: Rest - Dyspnea at rest and aggravated by exertion. Aggrevating Factors: Movement Alleviating Factors: Nothing - Allergy/Home Medications Home Medications: Home Medications Aspirin EC Low Dose* [Ecotrin EC Low Dose 81 MG*] 81 mg PO DAILY 06/24/17 [ History Confirmed 06/24/17] Multivitamins/Minerals TAB* [Theragran/minerals TAB*] 1 tab PO DAILY 06/24/17 [ History Confirmed 06/24/17] PMH/Surg Hx/FS Hx/Imm Hx Endocrine/Hematology History: Denies: Hx Diabetes Cardiovascular History: Reports: Hx Hypertension Denies: Hx Coronary Artery Disease Infectious Disease History: Denies: Traveled Outside the [place] in Last 30 Days - Family History Known Family History: Positive: Cardiac Disease, Hypertension - Mother and Father's side. - Social History Lives: Alone Alcohol Use: Daily Alcohol Amount: 3 beers a day Hx Tobacco Use: Yes Smoking Status (MU): Heavy Every Day Tobacco Smoker Type: Cigarettes Have You Smoked in the Last Year: Yes Review of Systems Negative: Fever Positive: Shortness Of Breath All Other Systems Reviewed And Are Negative: Yes Physical Exam Triage Information Reviewed: Yes Vital Signs On Initial Exam: Initial Vitals Temp Pulse Resp BP 97.5 F 87 24 208/102 06/24/17 14:52 06/24/17 14:52 06/24/17 14:52 06/24/17 14:52 Vital Signs Reviewed: Yes Appearance: Positive: Well-Appearing, No Pain Distress Skin: Positive: Warm, Dry, Other - [place] Head/Face: Positive: Normal Head/Face Inspection Eyes: Positive: Normal ENT: Positive: Normal ENT inspection Neck: Positive: Supple, Nontender Respiratory/Lung Sounds: Positive: Decreased Breath Sounds - Very decreased breath sounds, Wheezes - expiratory wheezing Cardiovascular: Positive: RRR Abdomen Description: Positive: Distended - Tall, distended abdomen Bowel Sounds: Positive: Present Musculoskeletal: Positive: Normal Neurological: Positive: Normal Psychiatric: Positive: Normal, Affect/Mood Appropriate Diagnostics - Vital Signs Vital Signs Temp Pulse Resp BP 06/24/17 14:52 97.5 F 87 24 208/102 - Laboratory Lab Results: Lab Results 06/24/17 06/24/17 06/24/17 Range/Units 15:20 15:20 15:20 WBC 5.3 (3.5-10.8) 10^3/ul RBC 7.01 H (4.0-5.4) 10^6/ul Hgb 22.2 H (14.0-18.0) g/dl Hct 70 H (42-52) % MCV 99 H (80-94) fL MCH 32 H (27-31) pg MCHC 32 (31-36) g/dl RDW 17 H (10.5-15) % Plt Count 111 L (150-450) 10^3/ul MPV 9 (7.4-10.4) um3 Neut % (Auto) 76.2 (38-83) % Lymph % (Auto) 14.3 L (25-47) % [place] % (Auto) 8.3 (1-9) % Eos % (Auto) 0.9 (0-6) % Baso % (Auto) 0.3 (0-2) % Absolute Neuts (auto) 4.0 (1.5-7.7) 10^3/ul Absolute Lymphs (auto) 0.8 L (1.0-4.8) 10^3/ul Absolute Monos (auto) 0.4 (0-0.8) 10^3/ul Absolute Eos (auto) 0 (0-0.6) 10^3/ul Absolute Basos (auto) 0 (0-0.2) 10^3/ul Absolute Nucleated RBC 0.22 10^3/ul Nucleated RBC % 4.1 INR (Anticoag Therapy) 1.02 (0.89-1.11) Sodium 119 L* (133-145) mmol/L Potassium 5.6 H (3.5-5.0) mmol/L Chloride 81 L (101-111) mmol/L Carbon Dioxide 25 (22-32) mmol/L Anion Gap 13 H (2-11) mmol/L BUN 12 (6-24) mg/dL Creatinine 0.79 (0.67-1.17) mg/dL Est GFR ( Amer) 131.0 (>60) Est GFR (Non-Af Amer) 101.8 (>60) BUN/Creatinine Ratio 15.2 (8-20) Glucose 94 (70-100) mg/dL Lactic Acid (0.5-2.0) mmol/L Calcium 9.1 (8.6-10.3) mg/dL Total Bilirubin 0.80 (0.2-1.0) mg/dL AST 46 H (13-39) U/L ALT 25 (7-52) U/L Alkaline Phosphatase 168 H (34-104) U/L Troponin I 0.05 H* (<0.04) ng/mL C-Reactive Protein 17.83 H (< 5.00) mg/L B-Natriuretic Peptide ( - 100) pg/mL Total Protein 6.6 (6.4-8.9) g/dL Albumin 3.4 (3.2-5.2) g/dL Globulin 3.1 (2-4) g/dL Albumin/Globulin Ratio 1.1 (1-3) 06/24/17 06/24/17 Range/Units 15:20 15:20 WBC (3.5-10.8) 10^3/ul RBC (4.0-5.4) 10^6/ul Hgb (14.0-18.0) g/dl Hct (42-52) % MCV (80-94) fL MCH (27-31) pg MCHC (31-36) g/dl RDW (10.5-15) % Plt Count (150-450) 10^3/ul MPV (7.4-10.4) um3 Neut % (Auto) (38-83) % Lymph % (Auto) (25-47) % [place] % (Auto) (1-9) % Eos % (Auto) (0-6) % Baso % (Auto) (0-2) % Absolute Neuts (auto) (1.5-7.7) 10^3/ul Absolute Lymphs (auto) (1.0-4.8) 10^3/ul Absolute Monos (auto) (0-0.8) 10^3/ul Absolute Eos (auto) (0-0.6) 10^3/ul Absolute Basos (auto) (0-0.2) 10^3/ul Absolute Nucleated RBC 10^3/ul Nucleated RBC % INR (Anticoag Therapy) (0.89-1.11) Sodium (133-145) mmol/L Potassium (3.5-5.0) mmol/L Chloride (101-111) mmol/L Carbon Dioxide (22-32) mmol/L Anion Gap (2-11) mmol/L BUN (6-24) mg/dL Creatinine (0.67-1.17) mg/dL Est GFR ( Amer) (>60) Est GFR (Non-Af Amer) (>60) BUN/Creatinine Ratio (8-20) Glucose (70-100) mg/dL Lactic Acid 2.1 H* (0.5-2.0) mmol/L Calcium (8.6-10.3) mg/dL Total Bilirubin (0.2-1.0) mg/dL AST (13-39) U/L ALT (7-52) U/L Alkaline Phosphatase (34-104) U/L Troponin I (<0.04) ng/mL C-Reactive Protein (< 5.00) mg/L B-Natriuretic Peptide 2115 H ( - 100) pg/mL Total Protein (6.4-8.9) g/dL Albumin (3.2-5.2) g/dL Globulin (2-4) g/dL Albumin/Globulin Ratio (1-3) Result Diagrams: 06/25/17 10:35 06/25/17 10:35 Lab Statement: Any lab studies that have been ordered have been reviewed, and results considered in the medical decision making process. - Radiology Chest XR Xray Interpretation: Positive (See Comments) - LEFT BASILAR CONSOLIDATION WITH SMALL BILATERAL, LEFT GREATER THAN RIGHT, PLEURAL EFFUSIONS Radiology Interpretation Completed By: Radiologist - EKG 1605 Cardiac Rate: NL - 79 bpm EKG Rhythm: Sinus Rhythm EKG Interpretation: Q complexes in V1-V3 which are likely old MIs Course/Dx - Course Course Of Treatment: Mr. Chang presented to the ED with the subjective C/O SOB and the objective finding of hypoxia He has not taken good care of himself and has maintained several lifestyle stressors for years. His situation is very complicated and he was initially stabilized with high flow O2 while his W/U commenced. The hospitalists were asked to get involved early as he will clearly need to be hospitalized at this time. - Diagnoses Provider Diagnoses: Acute respiratory failure with hypoxia, Hyponatremia, Polycythemia - Physician Notifications Discussed Care of Patient With: Zoey Salomon Time Discussed With Above Provider: 16:08 Instructed by Provider To: Other - Dr. Salomon will evaluate the pt in the ED. Upon evaluation at 1708, pt will be admitted to the ICU. - Critical Care Time Critical Care Time: 30-74 min Discharge - Discharge Plan Condition: Stable Disposition: ADMITT[facility] TO [facility] The documentation as recorded by the Andrea berg Nikita accurately reflects the service I personally performed and the decisions made by , Lucien Méndez MD.
[2017-06-25] MEDS ORDERED: Propofol* 100 ML ONE (13:47)
[2017-06-25] MEDS ORDERED: Norepinephrine 16MCG/ML IVPRE* 4,000 MCG/250 ML BAG IV ONE (13:47)
[2017-06-25] MEDS ORDERED: Etomidate* 2 MG/ML 10 ML VIAL IV ONE (13:49)
[2017-06-25] MEDS ORDERED: Propofol* 10 MG/ML 20 ML BTL IV PUSH ONE (13:57)
[2017-06-25] MEDS ORDERED: Etomidate* 2 MG/ML 20 ML VIAL (40 MG) ONE (13:57)
[2017-06-25] MEDS: Propofol* 100 ML IV SCH ×4 (14:00→22:00)
[2017-06-25] MEDS ORDERED: Norepinephrine 16MCG/ML IVPRE* 4,000 MCG/250 ML BAG IV SCH (14:00)
[2017-06-25] MEDS ORDERED: Midazolam* 1 MG/ML 2 ML VIAL (2 MG) ONE (14:24)
--- NOTE | 2017-06-25 14:35 | CONS ---
CONSULTATION REPORT: DATE OF CONSULT: REFERRING PHYSICIAN: Dr. Salomon. REASON FOR CONSULTATION: Erythrocytosis. History from chart. The patient is not responsive. HISTORY OF PRESENT ILLNESS: Mr. Chang is a 56-year-old male with a history of alcohol, tobacco abuse, as well as hypertension. No medical care over the past 10 years. He presented to the emergency room with progressive shortness of breath, worse with movement when he is lying flat. He also had a history of generalized fatigue that was progressive for approximately 1 month and increasing swelling in the legs. He has subjective history of heavy alcohol, but says he has been cutting down, but had reported decreased drinking over the past month. History of heavy tobacco use with rolling his own tobacco, one pouch of tobacco every 6 to 7 days. On presentation to the emergency room, he was markedly hypoxic, placed on 15 L oxygen by face mask, bilateral lower extremity edema, decreased breath sounds. He was hypokalemic with sodium of 119 , potassium 5.3, hematocrit of 70, hemoglobin of 22. He had a mild thrombocytopenia of around 115 and normal white count. He was subsequently admitted to the intensive care unit where he has been placed on BiPAP. He has been seen by Cardiology after an echocardiogram showed cor pulmonale and hypertensive left heart disease. He has had a negative troponin and elevated BNP of 2000. Urine with +2 protein and a PTT at 82 seconds. Hematology is consulted for polycythemia. We have no blood counts in our computer and last chart record of blood work was in 2004. PAST MEDICAL HISTORY: Hypertension. PAST SURGICAL HISTORY: Total knee replacement in 2005. MEDICATIONS: I am not sure he is taking anything at home. ALLERGIES: CODEINE. FAMILY HISTORY: Per chart. Maternal grandmother had coronary disease. Father at 94 of [place]. Mother had a heart attack at 72. SOCIAL HISTORY: Drinking 18 beers daily until a month ago per his report. Now down to 3 to 6 beers a day. Heavy current smoker. Lives alone. Two sons, who are surrogate decision makers. REVIEW OF SYSTEMS: Could not be obtained secondary to him being unresponsive. PHYSICAL EXAMINATION: Temperature 97.9, BP 132/94, heart rate 78, respirations 18, he is on a face mask. Skin: Broad erythema on his face, abdomen, and all extremities. He appears cyanotic and extremities are cold to the touch. Neuro : Not responsive. Pulmonary: Poor breath sounds. Obese. Heart: S1 and S2, cannot hear any murmurs. Abdomen: Obese, nontender, but cannot tell if there is hepatosplenomegaly. LABORATORY DATA: As noted above. His white cells of 5.2, hemoglobin 22, hematocrit 70, platelets 95, and MCV of 101. Other blood work noted above. Blood film: [facility] WBC morphology, density of RBC precludes further comment. ASSESSMENT AND PLAN: A 56-year-old male presents with erythrocytosis as well as hypoxia. He is obese, heavy alcohol and heavy smoking. Appears to have deteriorated fairly rapidly and is unresponsive on my exam today. Differential diagnosis for erythrocytosis includes secondary polycythemia from chronic hypoxia, although he has fairly marked elevation in hematocrit, could be polycythemia vera with a primary erythrocytosis and this could explain his thrombocytopenia. Could have a smoking related renal cell cancer with erythropoietin secretion. His macrocytosis could be from primary marrow disorder or heavy alcohol use, thrombocytopenia could be from heavy alcohol use , primary marrow disease or liver damage and splenomegaly. Also given hyponatremia, hypoxia, question of a poisoning could be on the differential with carbon monoxide. He seems at risk for immediate decompensation from right heart failure and cor pulmonale. 1. Given the severity of polycythemia, therapeutic phlebotomy is reasonable. Viscosity of blood at Hct > 65% will outweigh benefits of additional oxygen capacity even in secondary polycythemia. Goal would be hematocrit of 60%. I would take off 1 unit today and potentially daily until he gets to 60%. 2. I will send FISH for JAK2 and erythropoietin level as well as iron studies and B12. 3. Ultrasound of the kidneys as well as liver and spleen to look for splenomegaly as well as renal tumors. Splenomegaly could be seen either from liver damage or polycythemia. 4. Repeat his PTT with a peripheral stick to see if that is accurate. If so, it would be lupus anticoagulant. 5. We will continue to follow closely while he is in the hospital. [id number]/[facility] #: [id number] ELLIE
--- NOTE | 2017-06-25 15:27 | RAD ---
HISTORY: Tube placement COMPARISONS: June 24, 2017 VIEWS:1: Single frontal portable view of the chest at 3:08 PM the right costophrenic angle is cut off. FINDINGS: LINES AND TUBES: A right internal jugular venous catheter is noted with the tip overlying the expected location of the cavoatrial junction. An endotracheal tube is noted with the tip at the clavicles and the rylie. A gastric tube is noted. The tip is below the [id number] of the current examination but is below the diaphragm. CARDIOMEDIASTINAL SILHOUETTE: The cardiac mediastinal silhouette is obscured PLEURA: There is complete opacification of left hemithorax. LUNG PARENCHYMA: There is complete opacification of left hemithorax. ABDOMEN: The upper abdomen is clear. There is no subphrenic gas. BONES AND SOFT TISSUES: No bone or soft tissue abnormalities are noted. IMPRESSION: 1. LINES AND TUBES ABOVE. 2. INTERVAL DEVELOPMENT OF COMPLETE OPACIFICATION OF THE LEFT HEMITHORAX WHICH MAY INDICATE COMPLETE CONSOLIDATION OF THE LUNG VERSUS A LARGE PLEURAL EFFUSION.
[2017-06-25] MEDS ORDERED: Albuterol 2.5 MG/3 ML NEB.SOL* (0.083%) ONE (15:42)
[2017-06-25] MEDS ORDERED: Acetylcysteine INHALATION SOL* 200 MG/ML NEB.SOLN 10 ML ONE (15:42)
--- NOTE | 2017-06-25 15:51 | PN ---
Progress Note - Progress Note Date of Service: 06/25/17 Note: Endotracheal Intubation Procedure Note Indication: hypoxic resp failure Procedure done emergently. Prior labs/imaging/history reviewed as needed. Patient preoxygenated/denitrogenated with 100% FiO2 using NIV Patient was medicated with etomidate 20mg, propofol 40mg (post) for sedation Visualization of vocal cords with Grade 1 view obtained using MAC 4 glidescope. 8.0 ETT was passed through the vocal cords under direct visualization and confirmed with condensation, chest rise with bilateral breath sounds and positive color change x3 on qualitative capnography. ETT was secured at 23 cm at lip. CXR post - ett 4-5cm above rylie, left side opacified/collapsed, right IJ in place Patient tolerated procedure without immediate complication. Alfredo Vaughn MD Bun Icer (electronically signed)
--- NOTE | 2017-06-25 15:53 | PN ---
Progress Note - Progress Note Date of Service: 06/25/17 Note: Central Line Procedure Note Indication: respiratory failure, poor vascular access Consent was emergent , placed in bedside chart. - Prior labs/history was reviewed prior to procedure - Full sterile precautions with chlorhexidine/full drapes/gowns/gloves utilized - Right IJ vein visualized with ultrasound - Vessel accessed under ultrasound guidance with return of nonpulsatile blood. A guidewire was passed into vessel and confirmed in vessel with ultrasound. 1 attempt was made to access vessel. Vessel was dilated and cathetor was passed over wire into vessel. All ports demonstrated good blood return and flushed. Catheter was sutured to site and dressing applied Adequate hemostasis was achieved, EBL 4-5 cc No immediate complications noted, patient tolerated procedure well. CXR - RIJ in place, no PTX on right; noted left sided collapse, line moving toward midline with mediastinal shift to left due to collapse. Alfredo Vaughn MD Livestock Inspector (electronically signed)
--- NOTE | 2017-06-25 15:57 | PN ---
Progress Note - Progress Note Date of Service: 06/25/17 Note: Bronchoscopy Procedure Note Indication: resp failure, hypoxia, left lung collapse Procedure was emergent, explained to brother at bedside. Risks of procedure explained to him. Patient remained hypoxic post intubation on peep of 14, 100%, sats in upper 80s only; CXR with left sided collapse. EMergent bronch to be done for lavage. Prior labs/imaging reviewed before procedure. Patient oxygenated with 100% Fi02, on VC ventilation Propofol for sedation and analgesia. Given 2mg versed IV due to dyssynchrony. Scope inserted via ETT tube; AMbuscop 5.0 used for bronchoscopy. FINDINGS -ETT clear, in good position above rylie ~4-5cm -Excessive secretions noted coming from the left bronchus. Suctioning and BAL done in lower and upper segments, some large mucous plugs were suctioned out. Clear plugs and secretions being suctioned/lavaged. No blood. -No endobronchial lesions No immediate complications during the procedure Post procedure, sats still in mid-upper 80s, no change in hemodyn status. for CTA chest Alfredo Vaughn MD Area Counselor (electronically signed)
[2017-06-25] MEDS ORDERED: NS 0.9% 500 ML BAG* 500 ML IV ONE (16:00)
--- NOTE | 2017-06-25 16:00 | PN ---
Progress Note - Progress Note Date of Service: 06/25/17 Note: Patient becoming more lethargic, more difficult to arouse at times. Cyanosis has improved but not resolved. On NIV, TV 300-400 at times. Sometimes he wakes up and appears allert but then other times poor MV and difficult to arouse. Sats were more in upper 80s. Discussed with brother at bedside, decision to intubate for progresisve respiratory failure. Intubated by glidescope. Central line placed Sats did not improved despite 100% fio2 and peep of 14; peak pressures 33 on vent; good minute ventilation. Propofol started, vent synchrony achieved No sig improvement. CXR obtained showing left sided collapse, emergent bronch performed with BAL, but sats only slowly improving. Bedside USG chest was done prior to bronch and no effusion noted on left, just A -lines diffusely, cardiac sillhouetter more proximal to chest wall. Discussed with brother current status and findings. Needs CTA of chest still IV abx started for CAP coverage. obtain ABG now again. Cyanosis has improved after intubation, face more pink now, distal hands more on right cyanotic than the left. Improvement with intubation. Total Critical Care time 35 minutes, not including procedures. Total critical care time for the day so far 85 minutes. Alfredo Vaughn Production Cloth Cutter (electronically signed)
[2017-06-25 16:43] LABS: Total Iron Binding Capacity 286 mcg/dL (250-450); Transferrin 204 mg/dL (203-362)
[2017-06-25 16:52] LABS: FIO2 100
[2017-06-25 16:56] LABS: PCO2 Arterial 44 mmHg (35-45)
[2017-06-25 16:59] LABS: Ferritin 99.8 ng/mL (24-336)
[2017-06-25 17:04] LABS: Vitamin B12 616 pg/mL (180-914)
[2017-06-25] MEDS ORDERED: fentaNYL* 50 MCG/ML 2 ML VIAL (100 MCG VIAL) ONE (17:40)
--- NOTE | 2017-06-25 17:40 | RAD ---
HISTORY: Hypoxia, cyanosis, polycythemia COMPARISONS: None TECHNIQUE: Multiple contiguous axial CT scans of the chest were obtained after the administration of nonionic intravenous contrast, timed to the pulmonary arterial phase of contrast enhancement.. Coronal and sagittal multiplanar reformations are also submitted for review. FINDINGS: The study is limited by patient motion artifact. NECK AND THYROID: The lower neck and thyroid are unremarkable. CHEST WALL: There is no lower cervical, axillary, or supraclavicular lymphadenopathy by size criteria. HEART AND PERICARDIUM: The heart is unremarkable. AORTA AND PULMONARY VASCULATURE: There is no pulmonary arterial filling defect to suggest pulmonary embolism. There is no linear filling defect within the aorta to suggest aortic dissection. MEDIASTINUM: There is no mediastinal lymphadenopathy by size criteria. RYANN: There is no hilar lymphadenopathy by size criteria. AIRWAY AND ESOPHAGUS: An endotracheal tube is noted. A gastric tube is noted. LUNG PARENCHYMA: There is complete atelectasis of the left lung. There is compressive atelectasis of the right lung PLEURA: There are moderate bilateral pleural effusions. UPPER ABDOMEN: There is a trace amount of ascites. BONES AND SOFT TISSUES: Degenerative changes are noted of the spine OTHER: A right internal jugular venous catheter is noted IMPRESSION: 1. NO PULMONARY ARTERIAL FILLING DEFECT TO SUGGEST PULMONARY EMBOLISM. 2. COMPLETE ATELECTASIS OF THE LEFT LUNG. 3. COMPRESSIVE ATELECTASIS OF THE RIGHT LUNG BASE. 4. BILATERAL PLEURAL EFFUSIONS. 5. TRACE ASCITES.
[2017-06-25] MEDS ORDERED: Midazolam* 1 MG/ML 10 ML VIAL (10 MG) ONE (17:43)
--- NOTE | 2017-06-25 18:26 | PN ---
Progress Note - Progress Note Date of Service: 06/25/17 Note: Arterial Line Procedure Note Indication: hypoxic resp failure Consent was emergent , placed in bedside chart. - Prior labs/history was reviewed prior to procedure - Full sterile precautions with chlorhexidine/full drapes/gowns/gloves utilized - right radial artery visualized with US - Vessel accessed with return of pulsatile blood. 1 attempt was made to access vessel. A cathetor was threaded over wire into vessel. Good arterial waveform was observed on monitor. - Arterial Catheter was sutured to site - Adequate hemostasis was achieved, EBL 3 cc No immediate complications noted, patient tolerated procedure well. Dressing applied to site. Alfredo Vaughn MD Briquetting Machine Operator (electronically signed)
[2017-06-25] MEDS: methylPREDNISolone SOD 40 MG* 1 ML VIAL IV SCH (18:39)
--- NOTE | 2017-06-25 20:10 | RAD ---
HISTORY: Renal tumor, liver disease, polycythemia COMPARISONS: None TECHNIQUE: Multiple transverse and longitudinal ultrasound images were obtained of the abdomen using grayscale, color Doppler, and spectral Doppler imaging. FINDINGS: LIVER: The liver is diffusely echogenic and coarse in echotexture, with decreased acoustic transmission. The liver is enlarged measuring 21 cm.. There is normal hepatopedal flow of the portal vein on Doppler imaging. BILIARY TREE: There is no intrahepatic or extrahepatic biliary dilatation. The common duct measures 0.2 cm. GALLBLADDER: The gallbladder is well-visualized. There is no cholelithiasis, gallbladder wall thickening, pericholecystic fluid, or sonographic Obrien sign. The gallbladder wall is felt to be within normal limits. PANCREAS: The pancreas is obscured by overlying bowel gas. SPLEEN: The spleen is normal in shape, size, contour, and echotexture. The spleen measures 12.2 cm. RIGHT KIDNEY: The right kidney is normal in shape, size, contour, and echogenicity. There is no hydronephrosis or nephrolithiasis. The right kidney measures 12.8 x 5.2 x 5.3 cm. LEFT KIDNEY: The left kidney is normal in shape, size, contour, and echogenicity. There is no hydronephrosis or nephrolithiasis. The left kidney measures 13.2 x 6.3 x 6.1 cm. AORTA AND IVC: The aorta and IVC are unremarkable. FLUID: There is a trace amount of ascites OTHER FINDINGS: None. IMPRESSION: HEPATOMEGALY WITH FATTY INFILTRATION OF THE LIVER. TRACE ASCITES
[2017-06-25 20:36] LABS: PCO2 Arterial 46 mmHg (35-45)
[2017-06-26] MEDS ORDERED: hydrALAZINE IV* 20 MG/ML VIAL ONE ×2 (00:51→09:54)
[2017-06-26] MEDS ORDERED: Midazolam* 1 MG/ML 2 ML VIAL (2 MG) ONE (00:51)
[2017-06-26 01:04] LABS: FIO2 100; Resp Rate 20; Ventilator Volume 500
[2017-06-26 01:08] LABS: PCO2 Arterial 51 mmHg (35-45)
[2017-06-26] MEDS ORDERED: hydrALAZINE IV* 20 MG/ML VIAL IV SLOW PU PRN ×2 (01:18→09:31)
[2017-06-26] MEDS: methylPREDNISolone SOD 40 MG* 1 ML VIAL IV SCH ×3 (01:59→17:55)
[2017-06-26] MEDS ORDERED: Midazolam* 1 MG/ML 2 ML VIAL (2 MG) IV ONE (02:00)
[2017-06-26] MEDS: Propofol* 100 ML IV SCH ×7 (02:32→17:56)
[2017-06-26] MEDS: Midazolam* 1 MG/ML 2 ML VIAL (2 MG) IV PRN ×3 (03:46→07:13)
[2017-06-26 05:56] LABS: Hemoglobin 20.8 g/dl (14.0-18.0); Mean Corpuscular HGB Conc 33 g/dl (31-36); Mean Corpuscular Hemoglobin 32 pg (27-31); Mean Corpuscular Volume 97 fL (80-94); Mean Platelet Volume 10 um3 (7.4-10.4); Red Blood Count 6.52 10^6/ul (4.0-5.4); Red Cell Distribution Width 17 % (10.5-15); White Blood Count 8.4 10^3/ul (3.5-10.8)
[2017-06-26 06:01] LABS: Comments Flag Yes
[2017-06-26 06:02] LABS: Hematocrit 64 % (42-52)
[2017-06-26 06:12] LABS: ALT 18 U/L (7-52); Albumin 2.7 g/dL (3.2-5.2); Alkaline Phosphatase 88 U/L (34-104); BUN/Creatinine Ratio 24.4 (8-20); Blood Urea Nitrogen 20 mg/dL (6-24); CO2 Carbon Dioxide 32 mmol/L (22-32); Calcium 8.7 mg/dL (8.6-10.3); Chloride 84 mmol/L (101-111); EGFR African American 125.4 (>60); EGFR Non-African American 97.5 (>60); Globulin 2.4 g/dL (2-4); Glucose 133 mg/dL (70-100); Sodium 123 mmol/L (133-145); Total Protein 5.1 g/dL (6.4-8.9)
[2017-06-26 06:15] LABS: Anion Gap 7 mmol/L (2-11)
[2017-06-26] MEDS ORDERED: fentaNYL* 50 MCG/ML 2 ML VIAL (100 MCG VIAL) ONE (07:27)
[2017-06-26 09:01] LABS: FIO2 90; PCO2 Arterial 44 mmHg (35-45); Resp Rate 20
[2017-06-26] MEDS ORDERED: hydrALAZINE IV* 20 MG/ML VIAL IV SLOW PU STA (09:30)
[2017-06-26] MEDS ORDERED: Fentanyl PCA (Continuous Infusion)* 20 ML PCA SCH (10:00)
--- NOTE | 2017-06-26 10:01 | PN ---
Progress Note - Progress Note Date of Service: 06/26/17 Note: Progress Note - Critical Care 24 hour events: -intubated, lines placed yesterday; remains hypoxic but improved overnight -on sedation, off pressors now -more hypertensive this morning requiring hydralazine -negative balance noted -afebrile. Tele: NSR Vitals: Vital Signs Temp 96.8 F 06/26/17 09:00 Pulse 71 06/26/17 09:00 Resp 20 06/26/17 09:42 BP 148/85 06/25/17 16:35 Pulse Ox 100 06/26/17 09:00 Intake & Output 06/25/17 06/26/17 06/26/17 18:59 06:59 18:59 Intake Total 561 200 Output Total 1100 1550 Balance -539 -1350 Weight 278 lb 278 lb Intake: IV Fluids 561 NS (0.9%) 561 Oral 0 NG Tube Irrigate Amount 200 Output: Urine 1100 [place] 750 450 Residual 350 [place] 16 Fr Temperature 350 Probe O2/Vent: AC 20/500/+12/90%; Mv 11, sat 100%, rr 20 Infusions: heparin IV, propofol 70, fentanyl 50 Current Medications: Acetaminophen (Tylenol Tab*) 650 mg PO Q4H PRN PRN Reason: PAIN Albuterol/Ipratropium (Duoneb (Albuterol 2.5 Mg/Ipratropium 0.5 Mg)) 1 neb INH Q2H PRN PRN Reason: SOB/WHEEZING Aspirin (Aspirin Ec Low Dose*) 81 mg PO DAILY BERTIN Last Admin: 06/25/17 11:51 Dose: Not Given Famotidine (Pepcid Iv*) 20 mg IV SLOW PU DAILY BERTIN Folic Acid (Folvite Tab*) 1 mg PO DAILY BERTIN Last Admin: 06/25/17 11:56 Dose: Not Given Heparin Sodium (Porcine) (Heparin Vial(*)) 0 units IV .PER PROTOCOL BERTIN PRN Reason: Protocol Hydralazine HCl (Apresoline Iv*) 10 mg IV SLOW PU Q1HR PRN PRN Reason: SYSTOLIC BP GREATER THAN: Stop: 07/01/17 09:30 Heparin Sodium/Dextrose (Heparin Drip 25,000 Units(*)) 25,000 units in 500 mls @ 0 mls/hr IV .NO INITIAL BOLUS BERTIN; As Directed PRN Reason: Protocol Last Admin: 06/25/17 10:49 Dose: 25 mls/hr Ceftriaxone Sodium 2 gm/ (Sodium Chloride) 100 mls @ 200 mls/hr IVPB Q24H [facility] Last Admin: 06/25/17 13:00 Dose: 200 mls/hr Norepinephrine Bitartrate (Levophed 16 Mcg/Ml Premix Bag*) 4,000 mcg in 250 mls @ 18.75 mls/hr IV .INITIAL RATE BERTIN PRN Reason: 5 MCG/MIN Propofol (Diprivan*) 100 mls @ 15.132 mls/hr IV .(Initial Rate) BERTIN; 20 MCG/KG/ MIN PRN Reason: Protocol Last Admin: 06/26/17 04:45 Dose: 41.9 mls/hr Fentanyl Citrate (Fentanyl Office Technology Instructor*) 20 mls @ 0 mls/hr PHONOGRAPH MECHANIC .change Q24H BERTIN; 0 MCG/ HR PRN Reason: Protocol Last Admin: 06/26/17 09:28 Dose: 50 mls/hr Lorazepam (Ativan Tab(*)) 0 - 6 mg PO .PER [facility] PROTOCOL BERTIN PRN Reason: Protocol Methylprednisolone Sodium Succinate (Solu-Medrol 40 Mg) 60 mg IV Q8H [facility] Last Admin: 06/26/17 01:59 Dose: 60 mg Midazolam HCl (Versed 2mg/2ml*) 2 mg IV Q1H PRN PRN Reason: AGITATION/HTN (SBP > 160 MMHG) Last Admin: 06/26/17 07:13 Dose: 2 mg Multivitamins/Minerals (Theragran/Minerals Tab*) 1 tab PO DAILY [facility] Last Admin: 06/25/17 11:56 Dose: Not Given Nicotine (Nicotine Inhaler*) 10 mg INH Q2H PRN PRN Reason: CRAVING Thiamine HCl (Vitamin B-1 Tab*) 100 mg PO DAILY [facility] Last Admin: 06/25/17 11:56 Dose: Not Given Physical Exam: General: intubated, sedated Head: normocephalic, atraumatic HEENT: no pallor, no icterus, moist mucous membranes Neck: soft, supple, no jvd CVS: normal rate, normal rhythm, no murmur Resp: bilateral air entry but distant breath sounds, Right sound better than left, wheezing resolved, no rhales, no acc muscle use Abdomen: soft, obese, nontender, nondistended, bowel sounds present Ext: pulses+, warm, edema2+ with chronic changes Skin: intact, no breakdown, cyanosis resolved, head and extremities more pink/ red with good cap refill Neuro: intubated, sedated, pupils reactive Labs: Laboratory Results - last 24 hr 06/25/17 06/25/17 06/25/17 10:35 10:35 10:35 WBC 5.2 RBC 6.91 H Hgb 22.4 H Hct 70 H MCV 101 H MCH 32 H MCHC 32 RDW 18 H Plt Count 95 L MPV 9 Neut % (Auto) 90.5 H Lymph % (Auto) 4.4 L [place] % (Auto) 4.4 Eos % (Auto) 0 Baso % (Auto) 0.7 Absolute Neuts (auto) 4.7 Absolute Lymphs (auto) 0.2 L Absolute Monos (auto) 0.2 Absolute Eos (auto) 0 Absolute Basos (auto) 0 Absolute Nucleated RBC 0.31 Nucleated RBC % 5.9 Platelet Morphology Large Normal RBC Morphology Not Reportable Polychromasia 1+ Macrocytosis 1+ INR (Anticoag Therapy) 1.20 H APTT 81.8 H Patient Temperature ABG pH ABG pCO2 ABG pO2 ABG HCO3 ABG O2 Saturation ABG Base Excess Carbon Monoxide Screen Respiration Rate O2 Delivery Device Ventilator Type Vent Mode FiO2 Inspiratory Time PEEP Pressure Support Pressure Control EPAP IPAP BiPAP Sodium Potassium 5.7 H Chloride Carbon Dioxide Anion Gap BUN 15 Creatinine Est GFR ( Amer) Est GFR (Non-Af Amer) BUN/Creatinine Ratio Glucose Calcium Iron Cancelled TIBC Cancelled % Saturation Cancelled Unsat Iron Binding Cancelled Transferrin Cancelled Ferritin Cancelled Total Bilirubin AST ALT Alkaline Phosphatase Total Protein Albumin Globulin Albumin/Globulin Ratio Triglycerides 125 Cholesterol 198 LDL Cholesterol 109 HDL Cholesterol 64.5 Vitamin B12 TSH Cancelled 06/25/17 06/25/17 06/25/17 15:50 15:50 15:50 WBC RBC Hgb Hct MCV MCH MCHC RDW Plt Count MPV Neut % (Auto) Lymph % (Auto) [place] % (Auto) Eos % (Auto) Baso % (Auto) Absolute Neuts (auto) Absolute Lymphs (auto) Absolute Monos (auto) Absolute Eos (auto) Absolute Basos (auto) Absolute Nucleated RBC Nucleated RBC % Platelet Morphology Normal RBC Morphology Polychromasia Macrocytosis INR (Anticoag Therapy) APTT 80.6 H Patient Temperature ABG pH ABG pCO2 ABG pO2 ABG HCO3 ABG O2 Saturation ABG Base Excess Carbon Monoxide Screen <3.5 Respiration Rate O2 Delivery Device Ventilator Type Vent Mode FiO2 Inspiratory Time PEEP Pressure Support Pressure Control EPAP IPAP BiPAP Sodium Potassium Chloride Carbon Dioxide Anion Gap BUN Creatinine Est GFR ( Amer) Est GFR (Non-Af Amer) BUN/Creatinine Ratio Glucose Calcium Iron TNP TIBC 286 D % Saturation TNP Unsat Iron Binding TNP Transferrin Ferritin 99.8 Total Bilirubin AST ALT Alkaline Phosphatase Total Protein Albumin Globulin Albumin/Globulin Ratio Triglycerides Cholesterol LDL Cholesterol HDL Cholesterol Vitamin B12 616 TSH 06/25/17 06/25/17 06/25/17 16:45 19:50 20:26 WBC RBC Hgb Hct MCV MCH MCHC RDW Plt Count MPV Neut % (Auto) Lymph % (Auto) [place] % (Auto) Eos % (Auto) Baso % (Auto) Absolute Neuts (auto) Absolute Lymphs (auto) Absolute Monos (auto) Absolute Eos (auto) Absolute Basos (auto) Absolute Nucleated RBC Nucleated RBC % Platelet Morphology Normal RBC Morphology Polychromasia Macrocytosis INR (Anticoag Therapy) APTT 89.6 H Patient Temperature Not Reportable ABG pH 7.43 7.42 ABG pCO2 44 46 H ABG pO2 51 L* 59 L* ABG HCO3 27.5 27.7 ABG O2 Saturation 91.2 L 93.1 L ABG Base Excess 3.9 H 4.0 H Carbon Monoxide Screen Respiration Rate Not Reportable O2 Delivery Device vent Ventilator Type Not Reportable Vent Mode Not Reportable FiO2 100 Inspiratory Time Not Reportable PEEP Not Reportable Pressure Support Not Reportable Pressure Control Not Reportable EPAP Not Reportable IPAP Not Reportable BiPAP Not Reportable Sodium Potassium Chloride Carbon Dioxide Anion Gap BUN Creatinine Est GFR ( Amer) Est GFR (Non-Af Amer) BUN/Creatinine Ratio Glucose Calcium Iron TIBC % Saturation Unsat Iron Binding Transferrin Ferritin Total Bilirubin AST ALT Alkaline Phosphatase Total Protein Albumin Globulin Albumin/Globulin Ratio Triglycerides Cholesterol LDL Cholesterol HDL Cholesterol Vitamin B12 [facility] 06/26/17 06/26/17 06/26/17 01:01 05:45 05:45 WBC 8.4 RBC 6.52 H Hgb 20.8 H Hct 64 H MCV 97 H MCH 32 H MCHC 33 RDW 17 H Plt Count 106 L MPV 10 Neut % (Auto) Lymph % (Auto) [place] % (Auto) Eos % (Auto) Baso % (Auto) Absolute Neuts (auto) Absolute Lymphs (auto) Absolute Monos (auto) Absolute Eos (auto) Absolute Basos (auto) Absolute Nucleated RBC Nucleated RBC % Platelet Morphology Normal RBC Morphology Polychromasia Macrocytosis INR (Anticoag Therapy) APTT 75.4 H Patient Temperature Not Reportable ABG pH 7.38 ABG pCO2 51 H ABG pO2 113 H ABG HCO3 27.3 ABG O2 Saturation 98.8 H ABG Base Excess 3.2 H Carbon Monoxide Screen Respiration Rate 20 O2 Delivery Device Ventilator Type 500 Vent Mode Cmv FiO2 100 Inspiratory Time 1.25 PEEP 12 Pressure Support Not Reportable Pressure Control Not Reportable EPAP Not Reportable IPAP Not Reportable BiPAP Not Reportable Sodium Potassium Chloride Carbon Dioxide Anion Gap BUN Creatinine Est GFR ( Amer) Est GFR (Non-Af Amer) BUN/Creatinine Ratio Glucose Calcium Iron TIBC % Saturation Unsat Iron Binding Transferrin Ferritin Total Bilirubin AST ALT Alkaline Phosphatase Total Protein Albumin Globulin Albumin/Globulin Ratio Triglycerides Cholesterol LDL Cholesterol HDL Cholesterol Vitamin B12 TSH 06/26/17 06/26/17 05:45 09:00 WBC RBC Hgb Hct MCV MCH MCHC RDW Plt Count MPV Neut % (Auto) Lymph % (Auto) [place] % (Auto) Eos % (Auto) Baso % (Auto) Absolute Neuts (auto) Absolute Lymphs (auto) Absolute Monos (auto) Absolute Eos (auto) Absolute Basos (auto) Absolute Nucleated RBC Nucleated RBC % Platelet Morphology Normal RBC Morphology Polychromasia Macrocytosis INR (Anticoag Therapy) APTT Patient Temperature Not Reportable ABG pH 7.45 ABG pCO2 44 ABG pO2 118 H ABG HCO3 29.0 ABG O2 Saturation 98.8 H ABG Base Excess 5.4 H Carbon Monoxide Screen Respiration Rate 20 O2 Delivery Device Ventilator Type Not Reportable Vent Mode cmv FiO2 90 Inspiratory Time 1.25 PEEP 12 Pressure Support Not Reportable Pressure Control Not Reportable EPAP Not Reportable IPAP Not Reportable BiPAP Not Reportable Sodium 123 L Potassium TNP Chloride 84 L Carbon Dioxide 32 Anion Gap 7 BUN 20 Creatinine 0.82 Est GFR ( Amer) 125.4 Est GFR (Non-Af Amer) 97.5 BUN/Creatinine Ratio 24.4 H Glucose 133 H Calcium 8.7 Iron TIBC % Saturation Unsat Iron Binding Transferrin Ferritin Total Bilirubin 0.80 AST TNP ALT 18 Alkaline Phosphatase 88 Total Protein 5.1 L Albumin 2.7 L Globulin 2.4 Albumin/Globulin Ratio 1.1 Triglycerides Cholesterol LDL Cholesterol HDL Cholesterol Vitamin B12 TSH Imaging: cxr 06/24 - reviewed - left consolidation ? Bedside ECHo by cardiolgoy today - dilated RV, appears hypertrophic; LV thick and small cavity. no pericardial effusion seen. cxr 06/26 - ett above rylie, right IJ in place, Assessment: 56y M pmhx alcoholism but has been cutting back, tobacco abuse ( rolls own tobacco), hypertension; admitted for shortness of breath, cyanosis, hypoxia; this morning more cyanotic, lethargic, diffuse wheezing. Found to have polycythemia on admission. -Acute Hypoxic Respiratory Failure -Possible left lower lobe infiltrate? -diffuse bronchospasm -left lung collapse/atelectasis -Cor Pulmonale -Polycythemia -Thrombocytopenia -Hyponatremia -Hyperkalemia -Encephelopathy, hypoxic/metabolic induced -Alcohol abuse -Tobacco Use Plan: Neuro- intubated, sedated, on propofol and fentanyl at this time. neurochecks a4h when off sedation. daily sedation weaning if able. for now, due to resp instability, no sedation weaning. CVS- off pressors now, BP 120s. negative balance. made urine. will continue lasix as needed, cardiology following. gross anasarca+. for phlebotomy as per heme. CVP monitoring. maintain MAP>65. Hypertensive at times, improved with sedation. hydralazine prn for sbp>160. on Heparin IV for polycythemia and viscosity/clotting, maintain ptt ~50. Resp- on AC mode, fio2 90%. dec to 80%, increase peep to 14 now. repeat ABG at 1pm. CXR now pending. wheezing improved. cont steroids. reassess CXR, may need bronchoscopy again today for left atelectasis if not improved. CT chest reviewed - left atelectasis, with pleural effusion but effusion is not massive. right pleural effusion noted but moderate site, will hold on tap of that for now. cont bronchodilators prn. ID- afebrile, wbc normal. Ceftriaxone IV (day#3). Culture negative so far. GI- NPO. Will start feeds tomorrow. GI prophylaxis. Renal- Cr normal. No acidosis. repeat K level this morning. Na 123 now, stable. on IV diuretics. May be from chronic heart failure. Heme- hg still >20. plt ~100k. discussed with heme, cont asa/heparin for viscosity for now. check ptt. need to phelebotomize 250cc of blood today, will likely need daily removal till more acceptable Hg level. pending w/u for primary vs secondary polycythemia. Endo- glycemic control. Target bs<200 Musculsk- pressure ulcer prophylaxis Wounds- none Nutrition- NPO DVT prophylaxis: compression boots, heparin IV GI prophylaxis: pepcid Central Line: right IJ 06/25 Arterial Line: right radial 06/25 [place]ob[place] Cathetor: camila Disposition: ICU for hypoxic respiratory failure Code Status: full code Total Critical Care time is 40 minutes, excluding procedures/teaching Alfredo Vaughn MD [employer] (Electronically Signed)
--- NOTE | 2017-06-26 10:06 | PN ---
Progress Note - Progress Note Date of Service: 06/26/17 SOAP: Subjective: []Intubated and sedated. Acetaminophen (Tylenol Tab*) 650 mg PO Q4H PRN PRN Reason: PAIN Albuterol/Ipratropium (Duoneb (Albuterol 2.5 Mg/Ipratropium 0.5 Mg)) 1 neb INH Q2H PRN PRN Reason: SOB/WHEEZING Aspirin (Aspirin Ec Low Dose*) 81 mg PO DAILY BERTIN Last Admin: 06/25/17 11:51 Dose: Not Given Famotidine (Pepcid Iv*) 20 mg IV SLOW PU DAILY BERTIN Folic Acid (Folvite Tab*) 1 mg PO DAILY BERTIN Last Admin: 06/25/17 11:56 Dose: Not Given Heparin Sodium (Porcine) (Heparin Vial(*)) 0 units IV .PER PROTOCOL BERTIN PRN Reason: Protocol Hydralazine HCl (Apresoline Iv*) 10 mg IV SLOW PU Q1HR PRN PRN Reason: SYSTOLIC BP GREATER THAN: Stop: 07/01/17 09:30 Heparin Sodium/Dextrose (Heparin Drip 25,000 Units(*)) 25,000 units in 500 mls @ 0 mls/hr IV .NO INITIAL BOLUS BERTIN; As Directed PRN Reason: Protocol Last Admin: 06/25/17 10:49 Dose: 25 mls/hr Ceftriaxone Sodium 2 gm/ (Sodium Chloride) 100 mls @ 200 mls/hr IVPB Q24H BERTIN Last Admin: 06/25/17 13:00 Dose: 200 mls/hr Norepinephrine Bitartrate (Levophed 16 Mcg/Ml Premix Bag*) 4,000 mcg in 250 mls @ 18.75 mls/hr IV .INITIAL RATE BERTIN PRN Reason: 5 MCG/MIN Propofol (Diprivan*) 100 mls @ 15.132 mls/hr IV .(Initial Rate) BERTIN; 20 MCG/KG/ MIN PRN Reason: Protocol Last Admin: 06/26/17 04:45 Dose: 41.9 mls/hr Fentanyl Citrate (Fentanyl Home Management Supervisor*) 20 mls @ 0 mls/hr [employer] .change Q24H BERTIN; 0 MCG/ HR PRN Reason: Protocol Last Admin: 06/26/17 09:28 Dose: 50 mls/hr Lorazepam (Ativan Tab(*)) 0 - 6 mg PO .PER [facility] PROTOCOL BERTIN PRN Reason: Protocol Methylprednisolone Sodium Succinate (Solu-Medrol 40 Mg) 60 mg IV Q8H [facility] Last Admin: 06/26/17 01:59 Dose: 60 mg Midazolam HCl (Versed 2mg/2ml*) 2 mg IV Q1H PRN PRN Reason: AGITATION/HTN (SBP > 160 MMHG) Last Admin: 06/26/17 07:13 Dose: 2 mg Multivitamins/Minerals (Theragran/Minerals Tab*) 1 tab PO DAILY [facility] Last Admin: 06/25/17 11:56 Dose: Not Given Nicotine (Nicotine Inhaler*) 10 mg INH Q2H PRN PRN Reason: CRAVING Thiamine HCl (Vitamin B-1 Tab*) 100 mg PO DAILY [facility] Last Admin: 06/25/17 11:56 Dose: Not Given Objective: [] Vital Signs Temp Pulse Resp BP Pulse Ox 96.8 F 71 20 148/85 100 06/26/17 09:00 06/26/17 09:00 06/26/17 09:42 06/25/17 16:35 06/26/17 09:00 HEENT: Intubated, erythema BS bilateral, no wheezing Obese and positive BS, hyperemic EXT less cyonotic, hyperemic Laboratory Results - last 24 hr 06/25/17 06/25/17 06/25/17 10:35 10:35 10:35 WBC 5.2 RBC 6.91 H Hgb 22.4 H Hct 70 H MCV 101 H MCH 32 H MCHC 32 RDW 18 H Plt Count 95 L MPV 9 Neut % (Auto) 90.5 H Lymph % (Auto) 4.4 L [place] % (Auto) 4.4 Eos % (Auto) 0 Baso % (Auto) 0.7 Absolute Neuts (auto) 4.7 Absolute Lymphs (auto) 0.2 L Absolute Monos (auto) 0.2 Absolute Eos (auto) 0 Absolute Basos (auto) 0 Absolute Nucleated RBC 0.31 Nucleated RBC % 5.9 Platelet Morphology Large Normal RBC Morphology Not Reportable Polychromasia 1+ Macrocytosis 1+ INR (Anticoag Therapy) 1.20 H APTT 81.8 H Patient Temperature ABG pH ABG pCO2 ABG pO2 ABG HCO3 ABG O2 Saturation ABG Base Excess Carbon Monoxide Screen Respiration Rate O2 Delivery Device Ventilator Type Vent Mode FiO2 Inspiratory Time PEEP Pressure Support Pressure Control EPAP IPAP BiPAP Sodium Potassium 5.7 H Chloride Carbon Dioxide Anion Gap BUN 15 Creatinine Est GFR ( Amer) Est GFR (Non-Af Amer) BUN/Creatinine Ratio Glucose Calcium Iron Cancelled TIBC Cancelled % Saturation Cancelled Unsat Iron Binding Cancelled Transferrin Cancelled Ferritin Cancelled Total Bilirubin AST ALT Alkaline Phosphatase Total Protein Albumin Globulin Albumin/Globulin Ratio Triglycerides 125 Cholesterol 198 LDL Cholesterol 109 HDL Cholesterol 64.5 Vitamin B12 TSH Cancelled 06/25/17 06/25/17 06/25/17 15:50 15:50 15:50 WBC RBC Hgb Hct MCV MCH MCHC RDW Plt Count MPV Neut % (Auto) Lymph % (Auto) [place] % (Auto) Eos % (Auto) Baso % (Auto) Absolute Neuts (auto) Absolute Lymphs (auto) Absolute Monos (auto) Absolute Eos (auto) Absolute Basos (auto) Absolute Nucleated RBC Nucleated RBC % Platelet Morphology Normal RBC Morphology Polychromasia Macrocytosis INR (Anticoag Therapy) APTT 80.6 H Patient Temperature ABG pH ABG pCO2 ABG pO2 ABG HCO3 ABG O2 Saturation ABG Base Excess Carbon Monoxide Screen <3.5 Respiration Rate O2 Delivery Device Ventilator Type Vent Mode FiO2 Inspiratory Time PEEP Pressure Support Pressure Control EPAP IPAP BiPAP Sodium Potassium Chloride Carbon Dioxide Anion Gap BUN Creatinine Est GFR ( Amer) Est GFR (Non-Af Amer) BUN/Creatinine Ratio Glucose Calcium Iron TNP TIBC 286 D % Saturation TNP Unsat Iron Binding TNP Transferrin Ferritin 99.8 Total Bilirubin AST ALT Alkaline Phosphatase Total Protein Albumin Globulin Albumin/Globulin Ratio Triglycerides Cholesterol LDL Cholesterol HDL Cholesterol Vitamin B12 616 TSH 06/25/17 06/25/17 06/25/17 16:45 19:50 20:26 WBC RBC Hgb Hct MCV MCH MCHC RDW Plt Count MPV Neut % (Auto) Lymph % (Auto) [place] % (Auto) Eos % (Auto) Baso % (Auto) Absolute Neuts (auto) Absolute Lymphs (auto) Absolute Monos (auto) Absolute Eos (auto) Absolute Basos (auto) Absolute Nucleated RBC Nucleated RBC % Platelet Morphology Normal RBC Morphology Polychromasia Macrocytosis INR (Anticoag Therapy) APTT 89.6 H Patient Temperature Not Reportable ABG pH 7.43 7.42 ABG pCO2 44 46 H ABG pO2 51 L* 59 L* ABG HCO3 27.5 27.7 ABG O2 Saturation 91.2 L 93.1 L ABG Base Excess 3.9 H 4.0 H Carbon Monoxide Screen Respiration Rate Not Reportable O2 Delivery Device vent Ventilator Type Not Reportable Vent Mode Not Reportable FiO2 100 Inspiratory Time Not Reportable PEEP Not Reportable Pressure Support Not Reportable Pressure Control Not Reportable EPAP Not Reportable IPAP Not Reportable BiPAP Not Reportable Sodium Potassium Chloride Carbon Dioxide Anion Gap BUN Creatinine Est GFR ( Amer) Est GFR (Non-Af Amer) BUN/Creatinine Ratio Glucose Calcium Iron TIBC % Saturation Unsat Iron Binding Transferrin Ferritin Total Bilirubin AST ALT Alkaline Phosphatase Total Protein Albumin Globulin Albumin/Globulin Ratio Triglycerides Cholesterol LDL Cholesterol HDL Cholesterol Vitamin B12 TSH 06/26/17 06/26/17 06/26/17 01:01 05:45 05:45 WBC 8.4 RBC 6.52 H Hgb 20.8 H Hct 64 H MCV 97 H MCH 32 H MCHC 33 RDW 17 H Plt Count 106 L MPV 10 Neut % (Auto) Lymph % (Auto) [place] % (Auto) Eos % (Auto) Baso % (Auto) Absolute Neuts (auto) Absolute Lymphs (auto) Absolute Monos (auto) Absolute Eos (auto) Absolute Basos (auto) Absolute Nucleated RBC Nucleated RBC % Platelet Morphology Normal RBC Morphology Polychromasia Macrocytosis INR (Anticoag Therapy) APTT 75.4 H Patient Temperature Not Reportable ABG pH 7.38 ABG pCO2 51 H ABG pO2 113 H ABG HCO3 27.3 ABG O2 Saturation 98.8 H ABG Base Excess 3.2 H Carbon Monoxide Screen Respiration Rate 20 O2 Delivery Device Ventilator Type 500 Vent Mode Cmv FiO2 100 Inspiratory Time 1.25 PEEP 12 Pressure Support Not Reportable Pressure Control Not Reportable EPAP Not Reportable IPAP Not Reportable BiPAP Not Reportable Sodium Potassium Chloride Carbon Dioxide Anion Gap BUN Creatinine Est GFR ( Amer) Est GFR (Non-Af Amer) BUN/Creatinine Ratio Glucose Calcium Iron TIBC % Saturation Unsat Iron Binding Transferrin Ferritin Total Bilirubin AST ALT Alkaline Phosphatase Total Protein Albumin Globulin Albumin/Globulin Ratio Triglycerides Cholesterol LDL Cholesterol HDL Cholesterol Vitamin B12 TSH 06/26/17 06/26/17 05:45 09:00 WBC RBC Hgb Hct MCV MCH MCHC RDW Plt Count MPV Neut % (Auto) Lymph % (Auto) [place] % (Auto) Eos % (Auto) Baso % (Auto) Absolute Neuts (auto) Absolute Lymphs (auto) Absolute Monos (auto) Absolute Eos (auto) Absolute Basos (auto) Absolute Nucleated RBC Nucleated RBC % Platelet Morphology Normal RBC Morphology Polychromasia Macrocytosis INR (Anticoag Therapy) APTT Patient Temperature Not Reportable ABG pH 7.45 ABG pCO2 44 ABG pO2 118 H ABG HCO3 29.0 ABG O2 Saturation 98.8 H ABG Base Excess 5.4 H Carbon Monoxide Screen Respiration Rate 20 O2 Delivery Device Ventilator Type Not Reportable Vent Mode cmv FiO2 90 Inspiratory Time 1.25 PEEP 12 Pressure Support Not Reportable Pressure Control Not Reportable EPAP Not Reportable IPAP Not Reportable BiPAP Not Reportable Sodium 123 L Potassium TNP Chloride 84 L Carbon Dioxide 32 Anion Gap 7 BUN 20 Creatinine 0.82 Est GFR ( Amer) 125.4 Est GFR (Non-Af Amer) 97.5 BUN/Creatinine Ratio 24.4 H Glucose 133 H Calcium 8.7 Iron TIBC % Saturation Unsat Iron Binding Transferrin Ferritin Total Bilirubin 0.80 AST TNP ALT 18 Alkaline Phosphatase 88 Total Protein 5.1 L Albumin 2.7 L Globulin 2.4 Albumin/Globulin Ratio 1.1 Triglycerides Cholesterol LDL Cholesterol HDL Cholesterol Vitamin B12 TSH Assessment: []Appears improved on ventilator, less cyanotic and slight drop in Hct. Differential remains the same with primary or secondary erythrocytosis. Plan: []1. Will proceed with low volume phlebotomy with goal of Hct < 60%. Remove 250 cc whole blood today. 2. Serologic evaluation pending.
[2017-06-26] MEDS ORDERED: Furosemide IV* 10 MG/ML 2 ML VIAL (20 MG) IV SLOW PU ONE (10:22)
--- NOTE | 2017-06-26 11:05 | RAD ---
INDICATION: Left lung atelectasis COMPARISON: Chest x-ray June 25, 2017 TECHNIQUE: An AP portable view obtained at 1045 hours is submitted. FINDINGS: Bones/Soft Tissues: There are no acute bony findings. There is an endotracheal tube in satisfactory position. A nasogastric tube passes normally through the mediastinum. There is a right IJ catheter terminating in the superior vena cava. There are overlying chest leads. Cardiomediastinal: The cardiomediastinal silhouette is normal. Lungs: The right lung is clear. The left lung has partially reexpanded. There is minor volume loss in the left chest. Pleura: There are small bilateral effusions. Other: None IMPRESSION: THE LEFT LUNG HAS LARGELY REEXPANDED. ENDOTRACHEAL TUBE IN SATISFACTORY POSITION.
[2017-06-26] MEDS: Multivitamins/Minerals TAB PO SCH (11:09)
[2017-06-26] MEDS: Folic Acid TAB* 1 MG PO SCH (11:09)
[2017-06-26] MEDS: Aspirin EC Low Dose* 81 MG TAB.EC PO SCH (11:09)
[2017-06-26] MEDS: Thiamine TAB* 100 MG TAB PO SCH (11:09)
[2017-06-26] MEDS: Famotidine IV* 10 MG/ML 2 ML (20 mg) IV SLOW PU SCH (11:31)
--- NOTE | 2017-06-26 13:59 | ECHO ---
Patient: NETTA ECHAVARRIA [facility] Rec#: [id number] : 1960 Date: 06/26/2017 Age: 56y Height: 170.18 cm / 67.0 in Weight: 127.91 kg / 281.9 lbs Sex: M BSA: 2.34 Room#: ICU5 Admit Date#: 06/24/2017 Type: Inpatient Referring: Fariha See NP Reading: Elsie Keita MD Puzzle Assembler: Jimena Estevez KASSI CC: Polo Westbrook MD Transthoracic Echocardiogram Indication: Respiratory Failure BP: 102/95 HR: 71 Rhythm: NSR Findings History: ETOH abuse,hepatitis,smoker,HTN,hyponattrmia,hyperkalemia,polycythemia. Currently intubated, sedated and mechanically ventilated. Technical Comments: The study is technically limited due to the patient's smoking history. Completed at 1318. The study is technically limited due to patient being intubated and on a ventilator. Left Ventricle: The left ventricular chamber size is normal. Severe concentric left ventricular hypertrophy is observed. Global left ventricular wall motion and contractility are within normal limits. The estimated ejection fraction is 55-60%. There is an E to A reversal in the mitral valve flow pattern suggestive of diastolic dysfunction. The patient was unable to perform a Valsalva maneuver. Left Atrium: The left atrium is moderately dilated.based on visual estimate of apical and subcostal views. Right Ventricle: Moderator Band present. The right ventricular cavity size is normal. The right ventricle wall thickness is mildly increased. The right ventricular global systolic function is moderately reduced. Right Atrium: The right atrium is moderately dilated. Aortic Valve: The aortic valve is trileaflet. There is no evidence of aortic regurgitation. There is no evidence of aortic stenosis. Mitral Valve: The mitral valve leaflets are mildly thickened. There is a trace of mitral regurgitation. There is no evidence of mitral stenosis. Tricuspid Valve: The tricuspid valve leaflets are normal. There is mild tricuspid regurgitation. There is evidence that pulmonary hypertension may be underestimated. Pulmonic Valve: The pulmonic valve appears normal. There is no evidence of pulmonic regurgitation. There is no pulmonic stenosis. Pericardium: A pericardial fat pad is visualized. A left pleural effusion is present. There is a moderate pleural effusion. Aorta: There is no dilatation of the ascending aorta. The aortic arch is not well visualized. There is no dilation of the aortic root. Pulmonary Artery: The main pulmonary artery appears normal. Venous: Unable to accurately comment on the size collapsibility of the IVC as the patient in known to be on mechanical ventilation. Conclusions The study is technically limited. Severe concentric left ventricular hypertrophy is observed. Global left ventricular wall motion and contractility are within normal limits. The estimated ejection fraction is 55-60%. There is an E to A reversal in the mitral valve flow pattern suggestive of diastolic dysfunction. The right ventricle wall thickness is mildly increased. The right ventricular global systolic function is moderately reduced. There is a trace of mitral regurgitation. There is mild tricuspid regurgitation. No prior echo to compare. Measurements Name Value Normal Range RVIDd (AP) 2D 3.3 cm (0.9 - 2.6) RVDdMajor (2D) 4.3 cm (2.2 - 4.4) RAd ISD 4CH 5.7 cm (3.4 - 4.9) RA (A4C)W 4.6 cm (2.9 - 4.6) IVSd (2D) 1.9 cm (0.6 - 1) LVPWd (2D) 1.8 cm (0.6 - 1) LVIDd (2D) 4.5 cm (3.6 - 5.4) LVIDs (2D) 3 cm - LV FS (2D) 33 % (25 - 45) Aortic Annulus 1.7 cm (1.4 - 2.6) Ao root diameter (2D) 3.2 cm (2.1 - 3.5) Ascending Ao 2.9 cm (2.1 - 3.4) LA dimension (AP) 2D 3.8 cm (2.3 - 3.8) LAd ISD 4CH 4.4 cm (2.9 - 5.3) LA ISD 4CH W 3.9 cm (2.5 - 4.5) Name Value Normal Range MV E-wave Vmax 0.5 m/sec - MV deceleration time 161 msec - MV A-wave Vmax 0.9 m/sec - MV E:A ratio 0.57 ratio - Name Value Normal Range AV Vmax 1.2 m/sec - AV VTI 29.5 cm - AV peak gradient 5.26 mmHg - AV mean gradient 3.09 mmHg - LVOT Vmax 0.9 m/sec - LVOT VTI 18.6 cm - LVOT peak gradient 2.94 mmHg - LVOT mean gradient 1.68 mmHg - Name Value Normal Range TR Vmax 2.6 m/sec - TR peak gradient 37 mmHg - IVC diameter 2.6 cm - Name Value Normal Range PV Vmax 0.8 m/sec - PV peak gradient 2.37 mmHg -
[2017-06-26] MEDS: Heparin DRIP 25,000 UNITS(*) 25,000 UNITS/500 ML BAG IV SCH (14:29)
--- NOTE | 2017-06-26 14:41 | PN ---
Subjective Date of Service: 06/26/17 - CC: pt intubated, sedated, unable to talk Interval History: Pt intubated. Per discussions with clean up worker heparin improved the patient's color: on vent off heparin cyanosis recurs. Collapsed airways responding to ventilation. Medications Active Medications: Acetaminophen (Tylenol Tab*) 650 mg PO Q4H PRN PRN Reason: PAIN Albuterol/Ipratropium (Duoneb (Albuterol 2.5 Mg/Ipratropium 0.5 Mg)) 1 neb INH Q2H PRN PRN Reason: SOB/WHEEZING Aspirin (Aspirin Ec Low Dose*) 81 mg PO DAILY BERTIN Last Admin: 06/26/17 11:09 Dose: 81 mg Famotidine (Pepcid Iv*) 20 mg IV SLOW PU DAILY BERTIN Last Admin: 06/26/17 11:31 Dose: 20 mg Folic Acid (Folvite Tab*) 1 mg PO DAILY BERTIN Last Admin: 06/26/17 11:09 Dose: 1 mg Heparin Sodium (Porcine) (Heparin Vial(*)) 0 units IV .PER PROTOCOL BERTIN PRN Reason: Protocol Hydralazine HCl (Apresoline Iv*) 10 mg IV SLOW PU Q1HR PRN PRN Reason: SYSTOLIC BP GREATER THAN: Stop: 07/01/17 09:30 Heparin Sodium/Dextrose (Heparin Drip 25,000 Units(*)) 25,000 units in 500 mls @ 0 mls/hr IV .NO INITIAL BOLUS BERTIN; As Directed PRN Reason: Protocol Last Admin: 06/26/17 14:29 Dose: 20 mls/hr Ceftriaxone Sodium 2 gm/ (Sodium Chloride) 100 mls @ 200 mls/hr IVPB Q24H BERTIN Last Admin: 06/26/17 11:12 Dose: 200 mls/hr Norepinephrine Bitartrate (Levophed 16 Mcg/Ml Premix Bag*) 4,000 mcg in 250 mls @ 18.75 mls/hr IV .INITIAL RATE BERTIN PRN Reason: 5 MCG/MIN Propofol (Diprivan*) 100 mls @ 15.132 mls/hr IV .(Initial Rate) BERTIN; 20 MCG/KG/ MIN PRN Reason: Protocol Last Admin: 06/26/17 10:38 Dose: 45.7 mls/hr Fentanyl Citrate (Fentanyl Catering And Events Manager*) 20 mls @ 0 mls/hr COUNTY DEMONSTRATOR .change Q24H BERTIN; 0 MCG/ HR PRN Reason: Protocol Last Admin: 06/26/17 09:28 Dose: 50 mls/hr Lorazepam (Ativan Tab(*)) 0 - 6 mg PO .PER [facility] PROTOCOL BERTIN PRN Reason: Protocol Methylprednisolone Sodium Succinate (Solu-Medrol 40 Mg) 60 mg IV Q8H BERTIN Last Admin: 06/26/17 11:41 Dose: 60 mg Midazolam HCl (Versed 2mg/2ml*) 2 mg IV Q1H PRN PRN Reason: AGITATION/HTN (SBP > 160 MMHG) Last Admin: 06/26/17 07:13 Dose: 2 mg Multivitamins/Minerals (Theragran/Minerals Tab*) 1 tab PO DAILY BERTIN Last Admin: 06/26/17 11:09 Dose: 1 tab Nicotine (Nicotine Inhaler*) 10 mg INH Q2H PRN PRN Reason: CRAVING Thiamine HCl (Vitamin B-1 Tab*) 100 mg PO DAILY [facility] Last Admin: 06/26/17 11:09 Dose: 100 mg Objective Vital Signs: Temp Pulse Resp BP Pulse Ox 96.4 F 64 20 187/130 97 06/26/17 13:00 06/26/17 13:00 06/26/17 13:00 06/26/17 12:31 06/26/17 13:00 Oxygen Devices in Use Now: - - Intubated Appearance: Obese, lying at 30 degrees, intubated and sedated, comfortable in appearance. Eyes: PERRLA Ears/Nose/Mouth/Throat: Mucous Membranes Moist Neck: No Thyroid Enlargement, Masses Respiratory: Symmetrical Chest Expansion and Respiratory Effort - Wheezing and rhonchi Cardiovascular: NL Sounds; No Murmurs; No JVD, RRR Abdominal: - - marked drum like distension, +BS Extremities: - - Cyanotic nail beds and extremities cyanotic, improved somewhat Neurological: - - sedated/ Lines/Tubes/Other Access: Clean, Dry and Intact Peripheral IV Laboratory Results: 06/26/17 05:45 06/26/17 05:45 INR (Anticoag Therapy) 1.20 (0.89-1.11) H 06/25/17 10:35 APTT 44.2 seconds (26.0-36.3) H 06/26/17 13:37 Total Bilirubin 0.80 mg/dL (0.2-1.0) 06/26/17 05:45 AST TNP 06/26/17 05:45 ALT 18 U/L (7-52) 06/26/17 05:45 Alkaline Phosphatase 88 U/L (34-104) 06/26/17 05:45 B-Natriuretic Peptide 2115 pg/mL (-100) H 06/24/17 15:20 Total Protein 5.1 g/dL (6.4-8.9) L 06/26/17 05:45 Albumin 2.7 g/dL (3.2-5.2) L 06/26/17 05:45 Globulin 2.4 g/dL (2-4) 06/26/17 05:45 Albumin/Globulin Ratio 1.1 (1-3) 06/26/17 05:45 Triglycerides 125 mg/dL 06/25/17 10:35 Cholesterol 198 mg/dL 06/25/17 10:35 LDL Cholesterol 109 mg/dL 06/25/17 10:35 HDL Cholesterol 64.5 mg/dL 06/25/17 10:35 TSH Cancelled 06/25/17 10:35 06/24/17 21:25 Troponin I 0.04 H* Diagnostic Imaging: Echo: Severe LVH, EF 55-60%, abnormal diastolic filling. RV hypertrophy and hypokinesis, normal valve function, unable to estimate PApressure. CTA yesterday: Complete compressive atelectesis bilaterally CXR today: R lung nearly normal, much improved, L lung improved with some persistent atelectasis L base. Assessment/Plan 56 yo with hx heavy tobacco and alcohol use, hx longstanding HTN presenting with CC of SOB, progressive over weeks found to be markedly hypoxic, cyanotic, with profound polycythemia, hyponatremia and hyperkalemia and volume overloaded. Echo shows severe hypertensive left heart disease and RV strain/ hypokineis. CXR and oxygenation improving with intubation/ventilation. Cyanosis responding to heparin gtt. Phlebotomy noted. From a cardiac standpoint, avoid over diuresis due to severe LVH and cor pulmonale. Supportive care of respiratory and hematologic and metabolic abnormalities via ICU. Cardiology can follow distantly and PRN on this interesting patient. Points of Discussion: Cor pulmonale: -BP has dropped with diuresis. RV will need adequate preload. -I recommend not further diuresising. -Coreg will be stopped for now. Full echo will be able to be done tomorrow. LVH + HTN: -LV appears underfilled today. -Future options if BP re elevates: rate lowering CCB might be better tolerated than a beta joselyn. Pure beta joselyn might help with diastolic filling but could lead to more bronchospasm, a cardioselective BB might be preferable if trialed. Polycythemia: -doubt secondary to cardiopulmonary shunting based on history/old records. -work up in progress via hospitalists. -await hematology input. Troponin elevation: -mild, likely due to systemic hypoxia. -no indication for stress test or cardiac cath at this time. -Supportive care of other systemic problems. This patient is a high risk patient and highly complex.
--- NOTE | 2017-06-26 14:50 | PN ---
Progress Note - Progress Note Date of Service: 06/26/17 Note: Arterial Line Procedure Note Indication: respiratory failure, frequent abgs and hemodyn monitoring Consent was emergent; previous radial arterial line malfunctioning. - Prior labs/history was reviewed prior to procedure - Full sterile precautions with chlorhexidine/full drapes/gowns/gloves utilized - Left radial artery visualized with US but flow very sluggish and not cannulating well; attempted 2-3 times without success. site switched to left axillary artery. -Left axillary artery visualized with USG - Vessel accessed with return of pulsatile blood. 1 attempt was made to access vessel. A cathetor was threaded over wire into vessel. Good arterial waveform was observed on monitor. - Arterial Catheter was sutured to site - Adequate hemostasis was achieved, EBL 5 cc No immediate complications noted, patient tolerated procedure well. Dressing applied to site. Alfredo Vaughn MD Sawmill Supervisor (electronically signed)
[2017-06-26 15:12] LABS: FIO2 70; Resp Rate 20; Ventilator Volume 500
[2017-06-26 15:17] LABS: PCO2 Arterial 44 mmHg (35-45)
[2017-06-26] MEDS ORDERED: NS 0.9% 500 ML BAG* 500 ML IV ONE (15:30)
[2017-06-26 21:09] LABS: PCO2 Arterial 49 mmHg (35-45)
[2017-06-27] MEDS: methylPREDNISolone SOD 40 MG* 1 ML VIAL IV SCH ×2 (01:12→09:05)
[2017-06-27] MEDS: Chlorhexidine MOUTHWASH 0.12%* 15 ML UDC SCH ×7 (01:12→23:17)
[2017-06-27] MEDS: fentaNYL PCA* 20 ML PCA SCH (02:03)
[2017-06-27] MEDS: Midazolam* 1 MG/ML 2 ML VIAL (2 MG) IV PRN (03:19)
[2017-06-27 06:02] LABS: PCO2 Arterial 42 mmHg (35-45)
[2017-06-27 06:17] LABS: Hemoglobin 20.2 g/dl (14.0-18.0); Mean Corpuscular HGB Conc 33 g/dl (31-36); Mean Corpuscular Hemoglobin 32 pg (27-31); Mean Corpuscular Volume 96 fL (80-94); Mean Platelet Volume 10 um3 (7.4-10.4); Red Blood Count 6.38 10^6/ul (4.0-5.4); Red Cell Distribution Width 17 % (10.5-15); White Blood Count 6.8 10^3/ul (3.5-10.8)
[2017-06-27 06:30] LABS: Comments Flag Yes; Hematocrit 61 % (42-52)
[2017-06-27 06:34] LABS: ALT 15 U/L (7-52); Albumin 2.7 g/dL (3.2-5.2); Alkaline Phosphatase 69 U/L (34-104); Blood Urea Nitrogen 23 mg/dL (6-24); CO2 Carbon Dioxide 30 mmol/L (22-32); Calcium 8.5 mg/dL (8.6-10.3); Chloride 83 mmol/L (101-111); EGFR African American 109.8 (>60); EGFR Non-African American 85.4 (>60); Globulin 2.3 g/dL (2-4); Glucose 146 mg/dL (70-100); Sodium 121 mmol/L (133-145)
[2017-06-27 06:58] LABS: Anion Gap 8 mmol/L (2-11)
--- NOTE | 2017-06-27 08:12 | RAD ---
HISTORY: Left lung collapse COMPARISONS: June 26, 2017 VIEWS:1: Single frontal portable view of the chest at 6:05 AM FINDINGS: LINES AND TUBES: An endotracheal tube is noted with the tip overlying the trachea at the clavicles. A gastric tube is noted. The tip is not well visualized secondary to technique. A right internal jugular venous catheter is noted with tip overlying the cavoatrial junction. CARDIOMEDIASTINAL SILHOUETTE: The cardiomediastinal silhouette is normal for portable technique. PLEURA: The costophrenic angles are sharp. No pleural abnormalities are noted. LUNG PARENCHYMA: There is patchy alveolar opacification of left lung base. ABDOMEN: The upper abdomen is clear. There is no subphrenic gas. BONES AND SOFT TISSUES: No bone or soft tissue abnormalities are noted. IMPRESSION: PATCHY LEFT BASILAR ATELECTASIS. LINES AND TUBES ABOVE.
[2017-06-27] MEDS: Propofol* 100 ML IV SCH ×6 (09:03→23:51)
[2017-06-27] MEDS: Thiamine TAB* 100 MG TAB PO SCH (09:09)
[2017-06-27] MEDS: Multivitamins/Minerals TAB PO SCH (09:09)
[2017-06-27] MEDS: Folic Acid TAB* 1 MG PO SCH (09:09)
[2017-06-27] MEDS: Aspirin EC Low Dose* 81 MG TAB.EC PO SCH (09:09)
[2017-06-27] MEDS: Famotidine IV* 10 MG/ML 2 ML (20 mg) IV SLOW PU SCH (09:16)
--- NOTE | 2017-06-27 09:20 | PN ---
Progress Note - Progress Note Date of Service: 06/27/17 SOAP: Subjective: []Sedated and on Ventilator Acetaminophen (Tylenol Tab*) 650 mg PO Q4H PRN PRN Reason: PAIN Albuterol/Ipratropium (Duoneb (Albuterol 2.5 Mg/Ipratropium 0.5 Mg)) 1 neb INH Q2H PRN PRN Reason: SOB/WHEEZING Aspirin (Aspirin Ec Low Dose*) 81 mg PO DAILY BERTIN Last Admin: 06/26/17 11:09 Dose: 81 mg Chlorhexidine Gluconate (Peridex Mouth Wash 0.12%*) 15 ml .SEE ORDER Q4H BERTIN Last Admin: 06/27/17 05:40 Dose: 15 ml Famotidine (Pepcid Iv*) 20 mg IV SLOW PU DAILY BERTIN Last Admin: 06/26/17 11:31 Dose: 20 mg Folic Acid (Folvite Tab*) 1 mg PO DAILY BERTIN Last Admin: 06/26/17 11:09 Dose: 1 mg Heparin Sodium (Porcine) (Heparin Vial(*)) 0 units IV .PER PROTOCOL BERTIN PRN Reason: Protocol Hydralazine HCl (Apresoline Iv*) 10 mg IV SLOW PU Q1HR PRN PRN Reason: SYSTOLIC BP GREATER THAN: Stop: 07/01/17 09:30 Heparin Sodium/Dextrose (Heparin Drip 25,000 Units(*)) 25,000 units in 500 mls @ 0 mls/hr IV .NO INITIAL BOLUS BERTIN; As Directed PRN Reason: Protocol Last Admin: 06/26/17 14:29 Dose: 20 mls/hr Ceftriaxone Sodium 2 gm/ (Sodium Chloride) 100 mls @ 200 mls/hr IVPB Q24H BERTIN Last Admin: 06/26/17 11:12 Dose: 200 mls/hr Norepinephrine Bitartrate (Levophed 16 Mcg/Ml Premix Bag*) 4,000 mcg in 250 mls @ 18.75 mls/hr IV .INITIAL RATE BERTIN PRN Reason: 5 MCG/MIN Propofol (Diprivan*) 100 mls @ 15.132 mls/hr IV .(Initial Rate) BERTIN; 20 MCG/KG/ MIN PRN Reason: Protocol Last Admin: 06/27/17 09:03 Dose: 53.3 mls/hr Fentanyl Citrate (Fentanyl Nurse Informatics Educator*) 20 mls @ 2 mls/hr PRICING INTERN .change Q24H BERTIN; 100 MCG/HR PRN Reason: Protocol Last Admin: 06/27/17 02:03 Dose: 2 mls/hr Lorazepam (Ativan Tab(*)) 0 - 6 mg PO .PER [facility] PROTOCOL BERTIN PRN Reason: Protocol Methylprednisolone Sodium Succinate (Solu-Medrol 40 Mg) 60 mg IV Q8H BERTIN Last Admin: 06/27/17 01:12 Dose: 60 mg Midazolam HCl (Versed 2mg/2ml*) 2 mg IV Q1H PRN PRN Reason: AGITATION/HTN (SBP > 160 MMHG) Last Admin: 06/27/17 03:19 Dose: 2 mg Multivitamins/Minerals (Theragran/Minerals Tab*) 1 tab PO DAILY [facility] Last Admin: 06/26/17 11:09 Dose: 1 tab Nicotine (Nicotine Inhaler*) 10 mg INH Q2H PRN PRN Reason: CRAVING Thiamine HCl (Vitamin B-1 Tab*) 100 mg PO DAILY [facility] Last Admin: 06/26/17 11:09 Dose: 100 mg Objective: [] Vital Signs Temp Pulse Resp BP Pulse Ox 96.8 F 57 30 167/81 98 06/27/17 09:00 06/27/17 09:00 06/27/17 09:00 06/27/17 09:00 06/27/17 09:00 HEENT - adequate profusion ET tube No wheezing, has BS on right obease +2 DARY, BL, warm and good pulses. PEEP 14, FiO2 65% Hct 61% CXR - more aeration right lung. US - No renal lesions, normal size spleen Assessment: []56 year old with marked increase in Hct as well as acute on chronic pulmonary disease. Hct improved today after removal of 250 cc whole blood yesterday. Stable but remains ventilator dependent. Plan: []1. Polycytheemia - Will follow today and reserve phlebotomy for further rise in Hct. - Will follow thrombocytopenia. Possible bone marrow once recovered from acute event. ddx: alcohol, polycythemia, ITP - Serologic studies pending: Epo, Bony-2 2. Pulm. Unclear why he had a collapsed lung. Has heavy smoking history and risk of underlying lung cancer.
--- NOTE | 2017-06-27 11:10 | RAD ---
INDICATION: Gastric tube placement COMPARISON: Same day radiograph acquired at 0521 hours TECHNIQUE: Single AP portable view of the chest was obtained. FINDINGS: Image quality is compromised due to the relative inferiority of a portable chest x-ray. There is been interval placement of a gastric tube with the tip terminating below the level of the diaphragm at the midline upper abdomen. The heart is normal size. There is persistent density of securing the left hemidiaphragm and causing left-sided costophrenic angle blunting. The right lung is grossly clear. IMPRESSION: 1. Interval placement of a gastric tube with the tip terminating below the level of the diaphragm at the midline upper epigastrium. 2. Persistent density obscuring the left lung base and causing left-sided costophrenic angle blunting.
[2017-06-27] MEDS ORDERED: Thiamine IV 100 MG, Folic Acid IV* 1 MG, Multiple Vitamin IV ADULT* 10 ML in D5NS 0.9% ... IV ONE (11:30)
--- NOTE | 2017-06-27 13:19 | PN ---
Critical Care Services: Clinical status unchanged overnight. Continues to receive mechanical ventilation and propofol/fentanyl for sedation. Was phlebotomised yesterday with removal of about 500 cc whole blood and reinfusion of asanguinous fluids. Hct today is 61%. Vital Signs: Temp Pulse Resp BP SpO2 FiO2 96.3 F 52 30 186/104 96 60 Physical Exam: Gen:Opens eyes to command when sedation is interrupted. HEENT: Pupils midposition and reactive. No facial assymetry Lungs: Coarse rhonchi Extremities: Cyanosis at tipsd of all toes. 2+ nonpitting edema. Fluid Balance (Past 24 Hours): 06/27/17 06:59 Intake Total 1895 Output Total 2125 Balance -230 Weight 279 lb 15oz Intake: IV Fluids 164 NS (0.9%) 164 IVPB 100 NS (0.9%) 100 Medicated IV 1631 CC - Propofol/Diprivan 1101 Heparin 530 Oral NG Tube Irrigate Amount Output: Urine 1200 Escobedo 775 Residual Escobedo 16 Fr Temperature Probe Estimated Blood Loss 150 Other: Date of Last Bowel Movement Labs: 06/27/17 06/27/17 06/27/17 05:48 05:48 05:48 WBC 6.8 Hgb 20.2 Hct 61 MCV 96 Plt Count 104 MPV 10 ABG pH 7.45 ABG pCO2 42 ABG pO2 88 ABG HCO3 28.3 ABG O2 Saturation 97.6 ABG Base Excess 4.5 H Sodium 121 L Potassium TNP Chloride 83 L Carbon Dioxide 30 Anion Gap 8 BUN 23 Creatinine 0.92 BUN/Creatinine Ratio 25.0 H Glucose 146 H Calcium 8.5 L Total Bilirubin 0.70 AST TNP ALT 15 Alkaline Phosphatase 69 Total Protein 5.0 L Albumin 2.7 L Studies: CXR: Patchy infiltrates bilaterally. Cultures of sputum and urine are negative so far. Nutrition: None since admission. Impression: 1. Severe polycythemia - etiology yet to be determined. Hematology service actively following. 2. Probable bilaterial pneumonia - no organism isolated. 3. Possible signs of ETOH withdrawal when propofol held. Plan: Blood removal not required today. Will monitor hemoglobin and hematocrit. Critical Care Time: 50 minutes, not including time spent with the patient's two brothers.
[2017-06-27] MEDS: Enoxaparin(*) 40 MG/0.4 ML SYR SUBCUT SCH (15:28)
[2017-06-28] MEDS: Propofol* 100 ML IV SCH ×9 (01:32→23:30)
[2017-06-28] MEDS: Chlorhexidine MOUTHWASH 0.12%* 15 ML UDC SCH ×5 (03:24→20:32)
[2017-06-28 06:01] LABS: Hematocrit 60 % (42-52); Hemoglobin 19.3 g/dl (14.0-18.0); Mean Corpuscular HGB Conc 32 g/dl (31-36); Mean Corpuscular Hemoglobin 32 pg (27-31); Mean Corpuscular Volume 99 fL (80-94); Mean Platelet Volume 10 um3 (7.4-10.4); Red Cell Distribution Width 17 % (10.5-15); White Blood Count 9.3 10^3/ul (3.5-10.8)
[2017-06-28 06:06] LABS: Comments Flag Yes
[2017-06-28 06:14] LABS: ALT 18 U/L (7-52); Albumin 2.6 g/dL (3.2-5.2); Alkaline Phosphatase 62 U/L (34-104); Blood Urea Nitrogen 23 mg/dL (6-24); CO2 Carbon Dioxide 31 mmol/L (22-32); Calcium 8.6 mg/dL (8.6-10.3); Chloride 91 mmol/L (101-111); EGFR African American 109.8 (>60); EGFR Non-African American 85.4 (>60); Globulin 2.1 g/dL (2-4); Glucose 125 mg/dL (70-100); Sodium 128 mmol/L (133-145); Total Protein 4.7 g/dL (6.4-8.9)
[2017-06-28 07:34] LABS: Anion Gap 6 mmol/L (2-11)
--- NOTE | 2017-06-28 08:21 | RAD ---
INDICATION: Left lung collapse. COMPARISON: Comparison is made with prior studies from June 26, 2017 and June 27, 2017. TECHNIQUE: A portable view of the chest was obtained. FINDINGS: There is a central venous catheter present on the right side and from the internal jugular approach. The catheter tip projects in the right paratracheal region. There is a nasogastric tube which demonstrates normal course. There is an endotracheal tube which projects over the midline. The catheter tip is located just below the level of the trabecular heads. The heart appears slightly prominent and unchanged from prior studies. There is increased density in the left lower lobe which is unchanged and suggestion of a small left pleural effusion. IMPRESSION: LEFT BASILAR INFILTRATE AND SMALL LEFT PLEURAL EFFUSION, UNCHANGED.
[2017-06-28] MEDS: Aspirin EC Low Dose* 81 MG TAB.EC PO SCH (10:15)
[2017-06-28] MEDS: Thiamine TAB* 100 MG TAB PO SCH (10:15)
[2017-06-28] MEDS: Famotidine IV* 10 MG/ML 2 ML (20 mg) IV SLOW PU SCH (10:28)
--- NOTE | 2017-06-28 11:16 | PN ---
Critical Care Services: Patient remains on ventilator, and he becomes agitated when propofol is stopped. No tremors or diaphoresis (i.e., signs of ETOH withdrawal). Vital Signs: Temp Pulse Resp BP SpO2 FiO2 97.9 F 85 18 205/110 97 50 Physical Exam: Gen:Eyes open to verbal command. Lungs:Coarse rhonchi. Decreased BS on left side. Extremities: Cyanosis of distal limbs is unchanged from yesterday. Fluid Balance (Past 24 Hours): 06/28/17 06:59 Intake Total 3567 Output Total 3875 Balance -308 Weight 279 lb Intake: IV Fluids 1892 Banana Bag 1067 NS (0.9%) 825 IVPB NS (0.9%) Medicated IV 1455 CC - Propofol/Diprivan 1005 Heparin 450 Oral Tube Feeding 220 Tube Feeding Flush Amount 0 NG Tube Irrigate Amount Output: Urine 2200 Escobedo 1675 Residual Escobedo 16 Fr Temperature Probe Estimated Blood Loss Labs: Laboratory Results - last 24 hr 06/27/17 06/28/17 06/28/17 11:45 05:49 05:49 WBC 9.3 RBC 6.10 Hgb 19.3 Hct 60 MCV 99 H MCH 32 H MCHC 32 RDW 17 H Plt Count 105 L MPV 10 Sodium 128 L Potassium TNP TNP Chloride 91 L Carbon Dioxide 31 Anion Gap 6 BUN 23 Creatinine 0.92 Glucose 125 H Calcium 8.6 Total Bilirubin 0.70 ALT 18 Alkaline Phosphatase 62 Total Protein 4.7 L Albumin 2.6 L Globulin 2.1 Albumin/Globulin Ratio 1.2 Studies: Cultures of blood and sputum are negative. Nutrition: Tube feedings Impression: 1. Agitation off p[ropofol may be ETOH withdrawal. 2. No identifiable pathogen for the presumed pneumonia. 3. Source of polycythgemia also unclear. Plan: 1. D/C antibiotics. 2. Hold off on phlebotomy for now. 3. Monitor H/H. Critical Care Time: 40 minutes (not including time spent with patient's brother) .
[2017-06-28] MEDS: Enoxaparin(*) 40 MG/0.4 ML SYR SUBCUT SCH (14:25)
[2017-06-29] MEDS: Chlorhexidine MOUTHWASH 0.12%* 15 ML UDC SCH ×7 (00:22→23:35)
[2017-06-29] MEDS: Propofol* 100 ML IV SCH ×5 (01:30→23:34)
[2017-06-29] MEDS: fentaNYL PCA* 20 ML PCA SCH ×2 (05:44→21:01)
[2017-06-29 05:47] LABS: Hematocrit 59 % (42-52); Hemoglobin 19.1 g/dl (14.0-18.0); Mean Corpuscular HGB Conc 33 g/dl (31-36); Mean Corpuscular Hemoglobin 32 pg (27-31); Mean Corpuscular Volume 98 fL (80-94); Mean Platelet Volume 9 um3 (7.4-10.4); Red Blood Count 5.98 10^6/ul (4.0-5.4); Red Cell Distribution Width 17 % (10.5-15); White Blood Count 5.8 10^3/ul (3.5-10.8)
[2017-06-29 05:50] LABS: Comments Flag Yes
[2017-06-29] MEDS ORDERED: hydrALAZINE IV* 20 MG/ML VIAL ONE (05:55)
[2017-06-29] MEDS: hydrALAZINE IV* 20 MG/ML VIAL IV PRN (05:57)
[2017-06-29 06:03] LABS: Albumin 2.5 g/dL (3.2-5.2); Calcium 8.5 mg/dL (8.6-10.3); EGFR African American 139.1 (>60); EGFR Non-African American 108.1 (>60); Globulin 2.1 g/dL (2-4); Potassium 3.4 mmol/L (3.5-5.0); Total Bilirubin 0.7 mg/dL (0.2-1.0); Total Protein 4.6 g/dL (6.4-8.9)
[2017-06-29] MEDS ORDERED: Folic Acid IV* 1 MG/0.2 ML SYRINGE IV SCH (09:00)
--- NOTE | 2017-06-29 09:04 | RAD ---
INDICATION: Shortness of breath COMPARISON: Most recent comparison radiograph is dated June 28, 2017 TECHNIQUE: Single AP portable view of the chest was obtained. FINDINGS: Image quality is compromised due to the relative inferiority of a portable chest x-ray. The endotracheal tube is positioned approximately 5.6 cm above the rylie below the level of the clavicles. There is a right neck central line with the tip terminating in the SVC. There is mild cardiomegaly. There is density obscuring the right lung base and the minor fissure likely representing a combination of pleural fluid and compressive atelectasis. The left lung appears to be adequately aerated on these limited view radiograph. Visualized bones are normal for the patient's age. IMPRESSION: Worsening aeration in the right lung relative to the previous day chest x-ray with chest x-ray findings most consistent with pleural fluid with compressive atelectasis of the right lung.
[2017-06-29] MEDS: Thiamine IV* 100 MG/ML 2 ML VIAL IV SCH (09:46)
[2017-06-29] MEDS: Famotidine IV* 10 MG/ML 2 ML (20 mg) IV SLOW PU SCH (09:46)
--- NOTE | 2017-06-29 10:05 | PN ---
Progress Note - Progress Note Date of Service: 06/29/17 SOAP: Subjective: more alert today, following simple commands. Objective: Vital Signs Temp Pulse Resp BP Pulse Ox 98.4 F 79 18 159/68 93 06/29/17 09:00 06/29/17 09:00 06/29/17 09:00 06/29/17 09:00 06/29/17 09:00 perr no much tracking ET tube in place CTA anteriorly s1 s2 nl obese, rotund, no obvious tenderness anasarca dusky reddish purple blanching skin on abdomen and extremities awake, following simple commands, globally weak, trys to pull at ET tube no palpable adenopathy Laboratory Results - last 24 hr 06/24/17 06/25/17 06/28/17 18:50 06:06 07:40 WBC RBC Hgb Hct MCV MCH MCHC RDW Plt Count MPV Sodium Potassium TNP Chloride Carbon Dioxide Anion Gap BUN Creatinine Est GFR ( Amer) Est GFR (Non-Af Amer) BUN/Creatinine Ratio Glucose Calcium Erythropoietin 7.4 Total Bilirubin AST TNP ALT Alkaline Phosphatase Total Protein Albumin Globulin Albumin/Globulin Ratio Urine Osmolality 174 06/29/17 06/29/17 05:31 05:31 WBC 5.8 RBC 5.98 H Hgb 19.1 H Hct 59 H MCV 98 H MCH 32 H MCHC 33 RDW 17 H Plt Count 70 L MPV 9 Sodium 136 D Potassium 3.4 L Chloride 97 L Carbon Dioxide 35 H Anion Gap 4 BUN 21 Creatinine 0.75 Est GFR ( Amer) 139.1 Est GFR (Non-Af Amer) 108.1 BUN/Creatinine Ratio 28.0 H Glucose 120 H Calcium 8.5 L Erythropoietin Total Bilirubin 0.70 AST 30 ALT 19 Alkaline Phosphatase 75 Total Protein 4.6 L Albumin 2.5 L Globulin 2.1 Albumin/Globulin Ratio 1.2 Urine Osmolality Laboratory Tests 06/24/17 06/25/17 06/25/17 15:20 06:06 15:50 APTT Sodium 119 L* Erythropoietin 7.4 Ferritin 99.8 06/27/17 06/29/17 02:25 05:31 APTT 52.7 H Sodium 136 D Erythropoietin Ferritin Assessment: 56 yo M w alcoholism and heavy tobacco use presenting with AMS and respiratory distress and found to be profoundly hyponatremic and polycythemic. His polycythemia appears to be at least in part primary given his low epo level. His Bony-2 is pending and he will need a bone marrow biopsy if he recovers from this acute process. Given his stability in terms of his blood pressure I do think we can start pushing down his HCT further (ultimate goal <45% though would not change this quickly as he is likely accustomed to the high viscosity) . To that end I have ordered 500 cc to be removed today. In terms of his elevated aPTT, I will order mixing studies and lupus anticoagulant. We will continue to follow with you. I did discuss these recommendations with Dr. Casillas and Prieto's eldest brother.
[2017-06-29] MEDS: Folic Acid IV* 1 MG in NS 0.9% 50 ML* 50 ML IV SCH (12:07)
--- NOTE | 2017-06-29 14:21 | PN ---
Critical Care Services: Patient remains on ventilator. Continues to get agitated when propofol held (? ETOH withdrawal) Vital Signs: Temp Pulse Resp BP SpO2 FiO2 98.8 F 89 18 129/67 94 70 Physical Exam: Gen:Unresponsive (on propofol and fentanyl) Lungs:Coarse rhonchi. Occasional wheeze. Abdomen: Distended. Positive bowel sounds. Extremities: Diffuse cyanosis. 3+ nonpitting edema. Fluid Balance (Past 24 Hours): 06/29/17 06:59 Intake Total 5751.6 Output Total 3590 Balance +2161.6 Weight 284 lb Intake: IV Fluids 3247.6 Banana Bag Lactated Ringers 2920 NS (0.9%) 327.6 IVPB 110 NS (0.9%) 110 Medicated IV 685 CC - Propofol/Diprivan 685 Heparin IV Narcotic Infusion 19 Fentanyl 19 Tube Feeding 1690 Tube Feeding Flush Amount Output: Escobedo 3590 Labs: 06/29/17 06/29/17 05:31 05:31 WBC 5.8 Hgb 19.1 Hct 59 MCV 98 MCH 32 MCHC 33 RDW 17 Plt Count 70 Sodium 136 Potassium 3.4 Chloride 97 Carbon Dioxide 35 Anion Gap 4 BUN 21 Creatinine 0.75 Glucose 120 Calcium 8.5 Total Bilirubin 0.70 AST 30 ALT 19 Alkaline Phosphatase 75 Total Protein 4.6 Albumin 2.5 Studies: Cultures of blood and sputum - no growth. Nutrition: Tube feedings Impression: 1. No change in overall clinical status. 2. Probable ETOH withdrawal persists. 3. No pathogen isolated as a cause of pneumonia. 4. Thrombocytopenia - ?Heparin-induced (on enoxaparin for DVT prophylaxis) Plan: 1. Discontinue antibiotics 2. Remove one units whole blood (per hematology) 3. Continue daily attempts at weaning from ventilator. 4. D/C enoxaparin and use intermittent compression stockings for DVT prophylaxis. Critical Care Time: 40 minutes (not including time spent speaking with patient' s brother).
[2017-06-29] MEDS: Enoxaparin(*) 40 MG/0.4 ML SYR SUBCUT SCH (14:40)
[2017-06-29] MEDS: Aspirin EC Low Dose* 81 MG TAB.EC PO SCH (15:38)
[2017-06-30] MEDS: Propofol* 100 ML IV SCH ×6 (01:45→21:14)
[2017-06-30] MEDS: Chlorhexidine MOUTHWASH 0.12%* 15 ML UDC SCH ×5 (04:12→20:02)
[2017-06-30 05:42] LABS: Hematocrit 54 % (42-52); Hemoglobin 17.3 g/dl (14.0-18.0); Mean Corpuscular HGB Conc 32 g/dl (31-36); Mean Corpuscular Hemoglobin 32 pg (27-31); Mean Corpuscular Volume 99 fL (80-94); Mean Platelet Volume 9 um3 (7.4-10.4); Red Blood Count 5.43 10^6/ul (4.0-5.4); Red Cell Distribution Width 17 % (10.5-15)
[2017-06-30 05:44] LABS: Comments Flag Yes
[2017-06-30 05:53] LABS: Albumin 2.2 g/dL (3.2-5.2); BUN/Creatinine Ratio 29.7 (8-20); Calcium 8.3 mg/dL (8.6-10.3); EGFR Non-African American 129.8 (>60); Globulin 1.9 g/dL (2-4); Potassium 3.7 mmol/L (3.5-5.0); Total Bilirubin 0.6 mg/dL (0.2-1.0); Total Protein 4.1 g/dL (6.4-8.9)
[2017-06-30] MEDS: Carvedilol TAB* 3.125 MG PO SCH (07:50)
--- NOTE | 2017-06-30 08:02 | RAD ---
INDICATION: Collapse of the left lung. COMPARISON: Comparison is made with prior chest x-ray studies from June 28, 2017 and June 29, 2017. TECHNIQUE: A portable view of the chest was obtained. FINDINGS: There is an endotracheal tube present which projects over the midline. The catheter tip is located just below the level of the clavicular heads. There is a nasogastric tube which demonstrates normal course. The distal catheter projects overlying the left upper quadrant. There is a central venous catheter present on the right side the distal tip projects over the superior vena cava. The heart is within normal limits in size for this portable exam. There is a small to moderate size right pleural effusion which has increased in size and a small left pleural effusion. There is increased in the mid and lower right lung field likely representing atelectasis although nonspecific. IMPRESSION: BILATERAL PLEURAL EFFUSIONS RIGHT GREATER THAN LEFT DEMONSTRATING INTERVAL PROGRESSION.
[2017-06-30] MEDS ORDERED: Dexmedetomidine* 200 MCG in NS 0.9% 50 ML* 48 ML IVPB SCH ×2 (09:00→09:15)
[2017-06-30] MEDS ORDERED: NS 0.9% 50 ML* 50 ML ONE (09:39)
[2017-06-30] MEDS: Aspirin EC Low Dose* 81 MG TAB.EC PO SCH (09:46)
[2017-06-30] MEDS: Famotidine IV* 10 MG/ML 2 ML (20 mg) IV SLOW PU SCH (09:46)
[2017-06-30] MEDS: Fondaparinux* 2.5 MG/0.5 ML SYRINGE SUBCUT SCH (09:46)
[2017-06-30] MEDS: Thiamine IV* 100 MG/ML 2 ML VIAL IV SCH (09:47)
[2017-06-30] MEDS: Folic Acid IV* 1 MG in NS 0.9% 50 ML* 50 ML IV SCH (09:47)
[2017-06-30] MEDS: fentaNYL PCA* 20 ML PCA SCH ×2 (12:16→21:29)
[2017-06-30 14:15] LABS: LAC APTT 35 sec (26 - 36); LAC INR 0.9; Lac DRVVT Screen Ratio 0.9 ratio (0.0 - 1.1)
--- NOTE | 2017-06-30 15:28 | PN ---
Critical Care Services: Patient remains on ventilator - is agitated but not confused when propofol is turned off, which is against the Dx of ETOH withdrawal. Vital Signs: Temp Pulse Resp BP SpO2 FiO2 99.1 F 70 18 141/70 92 60 Physical Exam: Gen:Uhnresponsive (on propofol and fentanyl) HEENT: Orotracheal tube in place. Lungs: Coarse thonchi Abdomen: Distended, +bowel sounds Extremities: Diffuse cyanosis (but less than yesterday). 3+ edema of lower extremities. Fluid Balance (Past 24 Hours): 06/30/17 06:59 Intake Total 5624.4 Output Total 1585 Balance +4039.4 Weight 286 lb Intake: IV Fluids 3121.4 Banana Bag Lactated Ringers 2885 NS (0.9%) 236.4 IVPB 52 Lactated Ringers 52 NS (0.9%) Medicated IV 701 CC - Dexmedetomidine/ Precedex CC - Propofol/Diprivan 701 Heparin IV Narcotic Infusion 17 Fentanyl 17 Tube Feeding 1648 Tube Feeding Flush Amount 20 Escobedo Irrigate Amount 65 Output: Urine 0 Escobedo 1085 Autotransfusion Amount 500 Labs: 06/30/17 05:19 WBC 6.0 Hgb 17.3 Hct 54 Plt Count 68 L 06/30/17 05:19 Sodium 137 Potassium 3.7 Chloride 99 L Carbon Dioxide 36 BUN 19 Creatinine 0.64 Glucose 131 Calcium 8.3 L Total Bilirubin 0.60 AST 23 ALT 16 Alkaline Phosphatase 61 Total Protein 4.1 L Albumin 2.2 L Globulin 1.9 L Albumin/Globulin Ratio 1.2 Studies: None Nutrition: Tube feedings Impression: Clinically unchanged over past 24 hrs, although fluid accumulation continues. Continues to be ventilator-dependent. Polycythemia slightly improved after phlebotomy yesterday. No evidence of ETOH withdrawal at this time. Plan: Continue daily wean attempts, and phlebotomy when indicated. Try to avoid flurther fluid accumulation, if possible. Critical Care Time: 35 minutes
[2017-06-30] MEDS ORDERED: Albuterol/Ipratropium NEB.SOL* Albuterol 2.5 MG/Ipratropium 0.5 MG 3 ML ONE (21:29)
[2017-06-30] MEDS ORDERED: Magnesium Hydroxide LIQ* 30 ML UDC FEED TUBE PRN (21:54)
[2017-07-01] MEDS: Propofol* 100 ML IV SCH ×9 (00:05→23:02)
[2017-07-01] MEDS: Chlorhexidine MOUTHWASH 0.12%* 15 ML UDC SCH ×6 (00:06→20:39)
[2017-07-01] MEDS: fentaNYL PCA* 20 ML PCA SCH ×3 (06:16→23:57)
[2017-07-01 06:47] LABS: Hematocrit 53 % (42-52); Hemoglobin 17.1 g/dl (14.0-18.0); Mean Corpuscular HGB Conc 32 g/dl (31-36); Mean Corpuscular Hemoglobin 32 pg (27-31); Mean Corpuscular Volume 100 fL (80-94); Mean Platelet Volume 10 um3 (7.4-10.4); Red Blood Count 5.35 10^6/ul (4.0-5.4); Red Cell Distribution Width 17 % (10.5-15)
[2017-07-01 06:50] LABS: Comments Flag Yes
[2017-07-01 07:12] LABS: Albumin 2.3 g/dL (3.2-5.2); BUN/Creatinine Ratio 32.7 (8-20); Calcium 8.4 mg/dL (8.6-10.3); EGFR African American 212.2 (>60); Globulin 2.1 g/dL (2-4); Potassium 3.7 mmol/L (3.5-5.0); Total Bilirubin 0.7 mg/dL (0.2-1.0); Total Protein 4.4 g/dL (6.4-8.9)
--- NOTE | 2017-07-01 08:31 | RAD ---
Indication: Shortness of breath. Chronic obstructive pulmonary disease. Comparison: June 30, 2017 Technique: Upright AP 0600 hours Report: Endotracheal tube tip 8.5 cm above the Eden. RIGHT IJ central venous catheter at the superior vena cava directed central. Cardiomegaly. Prominent ill-defined central pulmonary vasculature. Moderately large RIGHT pleural effusion with associated compressive atelectasis. Perihilar alveolar opacities and diffuse prominence of interstitial markings. IMPRESSION: 1. The endotracheal tube could be advanced approximate 3 cm. 2. The constellation of findings is most consistent with alveolar and interstitial pulmonary edema with associated moderately large RIGHT and minimal LEFT pleural effusions without significant interval change.
[2017-07-01] MEDS ORDERED: NS 0.9% 50 ML* 50 ML ONE (09:17)
[2017-07-01] MEDS: Aspirin EC Low Dose* 81 MG TAB.EC PO SCH (10:11)
[2017-07-01] MEDS: Famotidine IV* 10 MG/ML 2 ML (20 mg) IV SLOW PU SCH (10:11)
[2017-07-01] MEDS: Thiamine IV* 100 MG/ML 2 ML VIAL IV SCH (10:12)
[2017-07-01] MEDS: Fondaparinux* 2.5 MG/0.5 ML SYRINGE SUBCUT SCH (10:13)
[2017-07-01] MEDS: Folic Acid IV* 1 MG in NS 0.9% 50 ML* 50 ML IV SCH (10:42)
--- NOTE | 2017-07-01 14:37 | PN ---
Critical Care Services: Remains on ventilator - attempts to wean have been unsuccessful so far. Is no longer confused when propofol held. Vital Signs: Temp Pulse Resp BP SpO2 FiO2 99.1 F 71 18 128/66 92 50 Physical Exam: Gen: HEENT: Lungs: Cardiac: Abdomen: Extremities: Neuro: Fluid Balance (Past 24 Hours): 07/01/17 06:59 Intake Total 3360 Output Total 1727 Balance +1633 Weight 292 lb Intake: IV Fluids 295 Lactated Ringers 215 NS (0.9%) 80 IVPB 135 Lactated Ringers 55 NS (0.9%) 80 Medicated IV 667 CC - Dexmedetomidine/ 329 Precedex CC - Propofol/Diprivan 338 IV Narcotic Infusion Fentanyl Tube Feeding 2263 Tube Feeding Flush Amount Escobedo Irrigate Amount Output: Urine Escobedo 1227 Autotransfusion Amount 500 Labs: 07/01/17 07/01/17 05:35 05:35 WBC 8.0 Hgb 17.1 Hct 53 H Plt Count 85 Sodium 138 Potassium 3.7 Chloride 99 L Carbon Dioxide 37 H Anion Gap 2 BUN 17 Creatinine 0.52 L Glucose 115 H Calcium 8.4 L Total Bilirubin 0.70 AST 23 ALT 16 Alkaline Phosphatase 63 Total Protein 4.4 L Albumin 2.3 L Globulin 2.1 Albumin/Globulin Ratio 1.1 Studies: CXR: Bilateral effusions R>>L Nutrition: Tube feedings Impression: 1. Pulmonic process is resolving, but patient still unable to wean. 2. Polycythemia improving with periodic phlebotomies. 3. Patient is markedly fluid overloaded (and cannot aggresively diurese because Hct will increase). Plan: 1. Combine phlebotomy (to remove 500 ccs of blood) with diuresis (IV lasix). 2. Attention to fluid restriction when possible. 3. Will consider tracheostomy if unable to wean over next few days. Critical Care Time: 35 minutes
[2017-07-01] MEDS ORDERED: Furosemide IV* 10 MG/ML VIAL (40 MG) IV ONE (14:46)
[2017-07-02] MEDS: Chlorhexidine MOUTHWASH 0.12%* 15 ML UDC SCH ×6 (00:59→20:16)
[2017-07-02] MEDS: Propofol* 100 ML IV SCH ×10 (01:37→21:53)
[2017-07-02 06:12] LABS: Hematocrit 51 % (42-52); Hemoglobin 16.3 g/dl (14.0-18.0); Mean Corpuscular HGB Conc 32 g/dl (31-36); Mean Corpuscular Hemoglobin 32 pg (27-31); Mean Corpuscular Volume 99 fL (80-94); Mean Platelet Volume 10 um3 (7.4-10.4); Red Blood Count 5.13 10^6/ul (4.0-5.4); Red Cell Distribution Width 17 % (10.5-15); White Blood Count 8.2 10^3/ul (3.5-10.8)
[2017-07-02 06:24] LABS: ALT 16 U/L (7-52); AST 21 U/L (13-39); Albumin 2.2 g/dL (3.2-5.2); Alkaline Phosphatase 63 U/L (34-104); BUN/Creatinine Ratio 33.3 (8-20); Blood Urea Nitrogen 17 mg/dL (6-24); CO2 Carbon Dioxide 39 mmol/L (22-32); Calcium 8.5 mg/dL (8.6-10.3); Chloride 99 mmol/L (101-111); EGFR Non-African American 168.7 (>60); Globulin 2.4 g/dL (2-4); Glucose 101 mg/dL (70-100); Potassium 4.3 mmol/L (3.5-5.0); Sodium 137 mmol/L (133-145); Total Protein 4.6 g/dL (6.4-8.9)
[2017-07-02] MEDS: fentaNYL PCA* 20 ML PCA SCH ×2 (08:36→17:48)
[2017-07-02] MEDS: Fondaparinux* 2.5 MG/0.5 ML SYRINGE SUBCUT SCH (09:38)
[2017-07-02] MEDS: Famotidine IV* 10 MG/ML 2 ML (20 mg) IV SLOW PU SCH (09:38)
[2017-07-02] MEDS: Aspirin EC Low Dose* 81 MG TAB.EC PO SCH (09:38)
--- NOTE | 2017-07-02 09:43 | RAD ---
HISTORY: Right pleural effusion COMPARISONS: Chest x-ray dated July 01, 2017 TECHNIQUE: Limited views of the right hemithorax are obtained using grayscale and FINDINGS: A right pleural effusion is identified. The distance from the skin to the anterior margin effusion is 4.2 cm. The difference from the skin to the center of the effusion from 10.2 cm. This site of measurement was marked. IMPRESSION: RIGHT PLEURAL EFFUSION
[2017-07-02] MEDS ORDERED: Furosemide IV* 10 MG/ML VIAL (40 MG) IV ONE (10:07)
--- NOTE | 2017-07-02 14:27 | RAD ---
HISTORY: Status post right thoracentesis COMPARISONS: July 01, 2017 VIEWS:1: Single frontal portable view of the chest at 2:05 PM. The study is technically limited. FINDINGS: LINES AND TUBES: A right internal jugular venous catheter is noted with the tip overlying the superior vena cava. A gastric tube is noted. The tip is in the left upper abdomen.. CARDIOMEDIASTINAL SILHOUETTE: The cardiomediastinal silhouette is stable. PLEURA: There is moderate right pleural effusion, slightly decreased in size in the previous examination. LUNG PARENCHYMA: There is persistent patchy alveolar opacification of the lung bases bilaterally ABDOMEN: The upper abdomen is clear. There is no subphrenic gas. BONES AND SOFT TISSUES: No bone or soft tissue abnormalities are noted. IMPRESSION: 1. LIMITED STUDY. 2. LINES AND TUBES ABOVE. 3. RIGHT PLEURAL EFFUSION, SLIGHTLY DECREASED FROM THE PREVIOUS EXAMINATION. 4. BIBASILAR ATELECTASIS VERSUS CONSOLIDATION
--- NOTE | 2017-07-02 17:31 | PN ---
Critical Care Services: Remains on ventilator. CXR shows large right-sided pleural effusion. Attempt to drain the effusion yielded only 150 cc of fluid. Patient also given furosemide for diuresis. Vital Signs: Temp Pulse Resp BP SpO2 FiO2 99.1 F 81 18 126/69 91 50 Physical Exam: Gen:Unresponsive (on propofol) Lungs: No crackles or wheezes. Abdomen: Distended. Extremities: 3+edema. Cyanosis less marked than previous days. Fluid Balance (Past 24 Hours): 07/02/17 06:59 Intake Total 1923.7 Output Total 2350 Balance -426.3 Weight 295 lb Intake: IV Fluids 198.7 Lactated Ringers NS (0.9%) 198.7 IVPB 124 Lactated Ringers NS (0.9%) 124 Medicated IV 899 CC - Dexmedetomidine/ Precedex CC - Propofol/Diprivan 899 IV Narcotic Infusion Fentanyl Tube Feeding 612 Tube Feeding Flush Amount 90 Escobedo Irrigate Amount Output: Urine Escobedo 1850 Estimated Blood Loss 500 Autotransfusion Amount Other Other: Other Amount Description phlebotomy Labs: Laboratory Results - last 24 hr 07/02/17 07/02/17 05:45 05:45 WBC 8.2 Hgb 16.3 Hct 51 Plt Count 129 L Sodium 137 Potassium 4.3 Chloride 99 L Carbon Dioxide 39 BUN 17 Creatinine 0.51 L Est GFR ( Amer) 217.0 Est GFR (Non-Af Amer) 168.7 BUN/Creatinine Ratio 33.3 H Glucose 101 H Total Bilirubin 0.70 AST 21 ALT 16 Alkaline Phosphatase 63 Total Protein 4.6 L Albumin 2.2 L Studies: CXR: As described above. Nutrition: Tube feeding Impression: 1. Polycythemia less marked (after phlebotomy x3) 2. No signs of ETOH withdrawal 3. Continued ventilator dependency Plan: Continue daily wean attempts,, and daily attempts at diuresis - will do tracheostomy if unable to wean and extubate in the next few days. Critical Care Time: 40 minutes (not including time for thoracentesis).
[2017-07-02] MEDS: Albuterol/Ipratropium NEB.SOL* Albuterol 2.5 MG/Ipratropium 0.5 MG 3 ML INH PRN (20:52)
[2017-07-02] MEDS: hydrALAZINE IV* 20 MG/ML VIAL IV PRN ×2 (21:07→23:16)
[2017-07-02] MEDS ORDERED: hydrALAZINE IV* 20 MG/ML VIAL IV SLOW PU ONE (23:10)
[2017-07-03] MEDS: Propofol* 100 ML IV SCH ×11 (00:07→23:53)
[2017-07-03] MEDS: Chlorhexidine MOUTHWASH 0.12%* 15 ML UDC SCH ×7 (00:12→23:53)
[2017-07-03] MEDS: fentaNYL PCA* 20 ML PCA SCH ×2 (02:26→11:07)
--- NOTE | 2017-07-03 03:19 | PRO ---
PROCEDURE NOTE: DATE OF PROCEDURE: 07/02/17 PROCEDURE: Thoracentesis. DESCRIPTION OF PROCEDURE: The patient is a 56-year-old white male with polycythemia, pneumonia, and alcohol withdrawal, who has been ventilator dependent for approximately 1 week and now has a large right-sided pleural effusion. Because of difficulty with weaning from mechanical ventilation, the effusion was identified with ultrasound and a righ-sided thoracentesis was performed. After removing 150 cc of clear yellow fluid, it was no longer possible to remove fluid easily, so the needle was withdrawn. Postprocedural chest x-ray did not show a pneumothorax.It is possible that the pleural effusion is somewhat loculated and therefore difficult to clear. [id number]/[facility] #: [id number] MTDD
[2017-07-03 05:36] LABS: Hematocrit 49 % (42-52); Hemoglobin 16.2 g/dl (14.0-18.0); Mean Corpuscular HGB Conc 33 g/dl (31-36); Mean Corpuscular Hemoglobin 32 pg (27-31); Mean Corpuscular Volume 98 fL (80-94); Mean Platelet Volume 9 um3 (7.4-10.4); Red Blood Count 5.02 10^6/ul (4.0-5.4); Red Cell Distribution Width 17 % (10.5-15); White Blood Count 7.8 10^3/ul (3.5-10.8)
[2017-07-03 05:51] LABS: BUN/Creatinine Ratio 35.4 (8-20); Blood Urea Nitrogen 17 mg/dL (6-24); CO2 Carbon Dioxide 38 mmol/L (22-32); Calcium 8.6 mg/dL (8.6-10.3); Chloride 99 mmol/L (101-111); EGFR African American 232.7 (>60); Glucose 106 mg/dL (70-100); Potassium 4.1 mmol/L (3.5-5.0); Sodium 137 mmol/L (133-145)
[2017-07-03] MEDS ORDERED: Furosemide IV* 10 MG/ML VIAL (40 MG) IV ONE (08:00)
[2017-07-03] MEDS: Famotidine IV* 10 MG/ML 2 ML (20 mg) IV SLOW PU SCH (10:05)
[2017-07-03] MEDS: Aspirin EC Low Dose* 81 MG TAB.EC PO SCH (10:05)
[2017-07-03] MEDS: Fondaparinux* 2.5 MG/0.5 ML SYRINGE SUBCUT SCH (10:06)
--- NOTE | 2017-07-03 14:04 | RAD ---
HISTORY: The just ET tube position COMPARISONS: July 01, 2017 VIEWS:1: Frontal portable views of the chest at 12:58 PM. The left costophrenic angle is cut off FINDINGS: LINES AND TUBES: The endotracheal tube is noted at the level of the clavicles. A subsequent image demonstrates a right mainstem bronchus intubation. A right internal jugular venous catheter is noted with the tip overlying the cavoatrial junction. A gastric tube is noted. The tip is below the [id number] the current examination but is below the diaphragm. CARDIOMEDIASTINAL SILHOUETTE: The cardiomediastinal silhouette is normal for portable technique. PLEURA: There is a right pleural effusion. The left costophrenic angle is cut off LUNG PARENCHYMA: There is patchy alveolar opacification of the right lung base ABDOMEN: The upper abdomen is clear. There is no subphrenic gas. BONES AND SOFT TISSUES: No bone or soft tissue abnormalities are noted. IMPRESSION: 1. LINES AND TUBES ABOVE. THE POSITION OF THE ENDOTRACHEAL TUBE WAS DISCUSSED WITH DR. PATRICIA AT APPROXIMATELY 1:58 PM ON JULY 03, 2017. 2. RIGHT PLEURAL EFFUSION WITH RIGHT BASILAR ATELECTASIS VERSUS CONSOLIDATION
[2017-07-03 14:23] LABS: FIO2 40; Resp Rate 25
[2017-07-03 14:26] LABS: PCO2 Arterial 59 mmHg (35-45)
[2017-07-03] MEDS: hydrALAZINE IV* 20 MG/ML VIAL IV PRN ×2 (14:39→19:20)
--- NOTE | 2017-07-03 14:50 | PN ---
Critical Care Services: Remains on ventilator - ABGs (on vent): PO2 = 53, PCO2 = 59, pH=7.42 (FIO2 = 50% , PEEP = 5 cm H2O) Sedated with propofol. Has copious subglottic secretions, but minimal secretions aspirated from ET tube. Wean attempt today was unsuccessful. Vital Signs: Temp Pulse Resp BP SpO2 FiO2 99.0 F 66 18 134/67 92 40 Physical Exam: Gen:Unresponsive (on propofol) HEENT: orotracheal and orogastric tubes in place Lungs: rhonchi and wheezes in both lungs. Abdomen:Distended. +bowel sounds Extremities: 3+ edema Fluid Balance (Past 24 Hours): 07/03/17 06:59 Intake Total 2408 Output Total 3030 Balance -622 Weight 292 lb Intake: IV Fluids 235 Lactated Ringers NS (0.9%) 235 IVPB Lactated Ringers NS (0.9%) Medicated IV 883 CC - Dexmedetomidine/ Precedex CC - Propofol/Diprivan 883 Tube Feeding 1200 Tube Feeding Flush Amount 90 Output: Escobedo 2880 Estimated Blood Loss Autotransfusion Amount Other 150 Other: Other Amount Description thoracentesis Labs: 07/03/17 07/03/17 07/03/17 05:25 05:25 14:20 WBC 7.8 Hgb 16.2 Hct 49 Plt Count 174 ABG pH 7.42 ABG pCO2 59 H ABG pO2 52 L* ABG HCO3 32.9 H ABG O2 Saturation 90.9 L ABG Base Excess 10.7 H Respiration Rate 25 Vent Mode pcv + FiO2 40 PEEP 5 Pressure Control 35 Sodium 137 Potassium 4.1 Chloride 99 Carbon Dioxide 38 BUN 17 Creatinine 0.48 Glucose 106 H Calcium 8.6 NOTE: platelet count has come up since d/cing heparin. Studies: None Nutrition: Tube feedings Impression: Polycythemia much improved with phlebotomy, but still not ready to wean. ABGs on the ventilator indicate severe gas exchange abnormalities - ? patient may have more severe COPD than suspected. Plan: 1. Tracheostomy is indicted at this time. 2. Prognosis seems very poor in this case (i.e., severe gas exchange abnormalities with nothing that is reversible) - I will speak with family (sons and brother) about the need for further aggressive management. Critical Care Time: 50 minutes
[2017-07-03] MEDS ORDERED: nitroGLYCERIN DRIP* 250 ML ONE (21:06)
[2017-07-03] MEDS ORDERED: nitroGLYCERIN DRIP* 25,000 MCG in PREMIX* 0 ML IV SCH (21:20)
[2017-07-04] MEDS: Propofol* 100 ML IV SCH ×11 (01:34→23:43)
[2017-07-04] MEDS: Chlorhexidine MOUTHWASH 0.12%* 15 ML UDC SCH ×5 (03:49→20:32)
[2017-07-04 04:14] LABS: Hematocrit 51 % (42-52); Hemoglobin 16.6 g/dl (14.0-18.0); Mean Corpuscular HGB Conc 32 g/dl (31-36); Mean Corpuscular Hemoglobin 32 pg (27-31); Mean Corpuscular Volume 98 fL (80-94); Mean Platelet Volume 9 um3 (7.4-10.4); Red Blood Count 5.25 10^6/ul (4.0-5.4); Red Cell Distribution Width 17 % (10.5-15)
[2017-07-04 04:29] LABS: BUN/Creatinine Ratio 34.8 (8-20); Calcium 8.7 mg/dL (8.6-10.3); EGFR African American 244.4 (>60); EGFR Non-African American 190.1 (>60); Potassium 3.4 mmol/L (3.5-5.0)
[2017-07-04] MEDS: Aspirin EC Low Dose* 81 MG TAB.EC PO SCH (07:54)
[2017-07-04] MEDS: Famotidine IV* 10 MG/ML 2 ML (20 mg) IV SLOW PU SCH (07:55)
[2017-07-04] MEDS: Fondaparinux* 2.5 MG/0.5 ML SYRINGE SUBCUT SCH (07:55)
--- NOTE | 2017-07-04 08:11 | RAD ---
Indication: Shortness of breath. Chronic obstructive pulmonary disease. Clinical concern for pneumonia. Comparison: July 03, 2017 chest radiograph and June 25, 2017 CT Technique: Upright AP 0605 hours Report: Moderate dependent RIGHT pleural effusion without significant change. Probable similar LEFT pleural effusion versus recurrent LEFT lower lobe atelectasis. Associated compressive atelectasis. Mild cardiomegaly. While rightward rotation limits assessment the central pulmonary vasculature appears within normal limits. Endotracheal tube approximate 1.2 cm above the Eden. RIGHT IJ central venous catheter at level of the superior vena cava directed central. IMPRESSION: 1.Moderate dependent RIGHT pleural effusion without significant change. Probable similar LEFT pleural effusion versus recurrent LEFT lower lobe atelectasis. 2. The endotracheal tube could be pulled back approximately 2 cm.
[2017-07-04] MEDS: hydrALAZINE IV* 20 MG/ML VIAL IV PRN ×2 (08:13→16:06)
[2017-07-04] MEDS ORDERED: Scopolamine 1.5 mg* PATCH TRANSDERM SCH (12:00)
--- NOTE | 2017-07-04 16:37 | PN ---
Critical Care Services: Patient remains on ventilator and now requires an FIO2 of 100% (to maintain SpO2s of 90%). Also has copious oral secretions (but not copious secretions from ET tube). Vital Signs: Temp Pulse Resp BP SpO2 FiO2 100.0 F 78 25 151/101 90 100 NOTE: Has required IV hydralazine for BP control Physical Exam: Gen:Unresponsive (on propofol) Lungs: Coarse rhonchi both sides. No crackles or wheezes. Abdomen: Distended. Extremities: 3+edema (unchanged from yesterday) Fluid Balance (Past 24 Hours): 07/04/17 06:59 Intake Total 2283 Output Total 1700 Balance +583 Weight 283 lb Intake: IV Fluids 168 NS (0.9%) 168 IVPB NS (0.9%) Medicated IV 1181 CC - Nitroglycerine/ 115 Tridil CC - Propofol/Diprivan 1066 Tube Feeding 754 Tube Feeding Flush Amount 180 Output: Escobedo 1700 Estimated Blood Loss Other Other: Other Amount Description Labs: 07/04/17 07/04/17 04:00 04:00 WBC 8.0 Hgb 16.6 Hct 51 Plt Count 219 Sodium 141 Potassium 3.4 Chloride 98 Carbon Dioxide 39 BUN 16 Creatinine 0.46 Glucose 120 Calcium 8.7 Studies: CXR: ET tube just above rylie (and subsequently pulled back 1 cm). Bilateral effusions R>>L. Nutrition: Tube feedings Impression: Major problem now is increasing O2 requirement without evidence of a reversible process (other than '"derecruitment"). ABGs showing CO2 retention despite mechanical ventilation is further evidence of a severe gas exchange abnormality (? from COPD). Plan: Will ventilate with APRV to promote alveolar recruitment. I do not think tracheostomy is advised (since it will not improve chances of weaning from the ventilator in this case), and have told the patients brother that the chances of recovery are slim. He will transmit this information to the patient's oldest son (the healthcare proxy), and will also try to arrange for a family meeting to discuss end-of-life options. Prognosis seems very poor at this time. Critical Care Time: 40 minutes
[2017-07-04] MEDS ORDERED: Labetalol IV* 5 MG/ML 20 ML VIAL IV PUSH PRN (16:38)
[2017-07-04] MEDS: Atropine 1% (ORAL/SL)* 15 ML BTL SL PRN (17:25)
[2017-07-05] MEDS: Propofol* 100 ML IV SCH ×8 (01:52→23:10)
[2017-07-05] MEDS: Chlorhexidine MOUTHWASH 0.12%* 15 ML UDC SCH ×6 (02:10→19:55)
[2017-07-05] MEDS: Atropine 1% (ORAL/SL)* 15 ML BTL SL PRN (02:51)
[2017-07-05 06:05] LABS: Hematocrit 51 % (42-52); Hemoglobin 16.8 g/dl (14.0-18.0); Mean Corpuscular HGB Conc 33 g/dl (31-36); Mean Corpuscular Hemoglobin 32 pg (27-31); Mean Corpuscular Volume 97 fL (80-94); Mean Platelet Volume 9 um3 (7.4-10.4); Red Cell Distribution Width 17 % (10.5-15); White Blood Count 8.2 10^3/ul (3.5-10.8)
[2017-07-05 06:24] LABS: Calcium 8.8 mg/dL (8.6-10.3); EGFR Non-African American 172.6 (>60); Potassium 2.9 mmol/L (3.5-5.0)
[2017-07-05] MEDS: KCL 20 MEQ/100 ML IVPREMIX* 20 MEQ/100 ML BAG IV SCH ×4 (06:45→17:20)
[2017-07-05] MEDS: Fondaparinux* 2.5 MG/0.5 ML SYRINGE SUBCUT SCH (09:09)
[2017-07-05] MEDS: Famotidine IV* 10 MG/ML 2 ML (20 mg) IV SLOW PU SCH (09:09)
[2017-07-05] MEDS: Aspirin EC Low Dose* 81 MG TAB.EC PO SCH (09:22)
[2017-07-05] MEDS ORDERED: Furosemide IV* 10 MG/ML VIAL (40 MG) IV SLOW PU ONE ×2 (09:49→12:59)
[2017-07-05 10:53] LABS: Magnesium 2.2 mg/dL (1.9-2.7); Phosphorus 4.3 mg/dL (2.5-5.0)
[2017-07-05] MEDS: Albumin Human 25%* 100 ML in PREMIX* 0 ML IV SCH ×3 (11:37→23:07)
[2017-07-05] MEDS: Spironolactone TAB* 25 MG G TUBE SCH (11:46)
[2017-07-05] MEDS: Senna TAB G TUBE SCH (11:46)
--- NOTE | 2017-07-05 12:02 | PN ---
Progress Note - Progress Note Date of Service: 07/05/17 Note: CRITICAL CARE MEDICINE Date: 07/05/17 Time: 900 SUBJECTIVE: Patient seen and examined. Brother at bedside updated. PHYSICAL EXAM: Vital Signs: Reviewed. Neurologic: Rass -3. less prop, he awakens, mild delirium but can follow simple commands. HEENT: pupils equal. Sclera anicteric. Trachea midline. Cardiovascular: S1 S2 Respiratory: dec b/l and dull Abdomen: Soft, distended, nt. +anasarca Extremities: Cool. anasarca, chronic skin changes LABS: Reviewed. IMAGING: Reviewed. MEDICATIONS: Reviewed. ASSESSMENT: 56 M Acute hypoxic resp failure Acute pulm edema Atelectasis B/l pleural effusions COPD PCV Anasarca Electrolyte dysregulation PLAN: Neurologic: keep peng prop but lower to Rass -1 today- re-eval pain scale and for signs of delirium Cardiovascular: Perfusing. Gross vol overload. start lasix and gtt today and see if he is able to mobilize dramatically. Add K sparing. consider diamox and thiazide tomorrow if needed. Respiratory: aprv adjusted. need to mobilize lung water. maintain lung recruitment. limiting steps are his degree of acute on chronic lung ailments, plus lung water, de-recruitment, questionable component of pratik and tbm, ongoing tobacco use and global weakness of acute critical illness. Gastrointestinal: tf and needs bowel regimen. sup. Renal/Metabolic: lasix and f/u lytes. replete K, mg. Infectious Disease: no abx need at present. Hematology: onc f/u. on asa. utilize albumin loading today and see if we can maintain intravascular euvolemia at present while promoting flow phase. Endocrine: glu ok. no steroid indication. Musculoskeletal: inc activity. Psych/Social: brother updated; will continue to discuss push in his care Supportive and preventative care as ordered. Vaccine: f/u SUP: H2 VTE prophylaxis: arixta Escobedo catheter given critical illness, monitoring needs for accurate assessment of ANNETTE and KDIGO criteria for critically ill patients and to avoid potential harms of urinary retention, skin breakdown/ulcers. Disposition: ICU Code Status: Full presently Critical Care Time: 45min FRosangela Velasquez DO
[2017-07-05] MEDS: Potassium Chloride LIQUID* 20 MEQ PACKET G TUBE SCH ×2 (14:40→21:41)
[2017-07-06] MEDS: Atropine 1% (ORAL/SL)* 15 ML BTL SL PRN ×3 (00:57→06:19)
[2017-07-06] MEDS: Chlorhexidine MOUTHWASH 0.12%* 15 ML UDC SCH ×6 (00:58→19:43)
[2017-07-06] MEDS: Propofol* 100 ML IV SCH ×8 (01:49→23:22)
[2017-07-06] MEDS: Albumin Human 25%* 100 ML in PREMIX* 0 ML IV SCH (05:24)
[2017-07-06 05:43] LABS: Hematocrit 48 % (42-52); Hemoglobin 15.8 g/dl (14.0-18.0); Mean Corpuscular HGB Conc 33 g/dl (31-36); Mean Corpuscular Hemoglobin 32 pg (27-31); Mean Corpuscular Volume 98 fL (80-94); Mean Platelet Volume 9 um3 (7.4-10.4); Red Blood Count 4.93 10^6/ul (4.0-5.4); Red Cell Distribution Width 17 % (10.5-15)
[2017-07-06 05:57] LABS: Albumin 3.2 g/dL (3.2-5.2); BUN/Creatinine Ratio 35.6 (8-20); Calcium 9.1 mg/dL (8.6-10.3); Direct Bilirubin 0.6 mg/dL (0.03-0.18); EGFR African American 183.4 (>60); EGFR Non-African American 142.6 (>60); Globulin 2.8 g/dL (2-4); Indirect Bilirubin 0.6 mg/dL (0.3-1.0); Magnesium 1.8 mg/dL (1.9-2.7); Phosphorus 3.8 mg/dL (2.5-5.0); Total Bilirubin 1.2 mg/dL (0.2-1.0)
[2017-07-06 05:58] LABS: Potassium 2.7 mmol/L (3.5-5.0)
[2017-07-06] MEDS ORDERED: KCL 20 MEQ/100 ML IVPREMIX* 20 MEQ/100 ML BAG ONE (06:29)
[2017-07-06] MEDS: KCL 20 MEQ/100 ML IVPREMIX* 20 MEQ/100 ML BAG IV SCH ×5 (06:32→19:58)
[2017-07-06] MEDS: Aspirin EC Low Dose* 81 MG TAB.EC PO SCH (08:57)
[2017-07-06] MEDS: Spironolactone TAB* 25 MG G TUBE SCH (08:57)
[2017-07-06] MEDS: Potassium Chloride LIQUID* 20 MEQ PACKET G TUBE SCH ×3 (08:57→22:10)
[2017-07-06] MEDS: Senna TAB G TUBE SCH (08:57)
[2017-07-06] MEDS ORDERED: Famotidine SUSP* 40 MG/5 ML ORAL.SUSP G TUBE ONE (09:00)
[2017-07-06] MEDS: Fondaparinux* 2.5 MG/0.5 ML SYRINGE SUBCUT SCH (09:20)
[2017-07-06] MEDS ORDERED: Chlorothiazide IV* 250 MG in NS 0.9% 50 ML* 50 ML IVPB ONE (09:38)
[2017-07-06] MEDS ORDERED: Magnesium Sulfate 2 GM IV* 2 GM/50 ML BAG IVPB ONE (09:39)
--- NOTE | 2017-07-06 10:58 | PN ---
Progress Note - Progress Note Date of Service: 07/06/17 Note: CRITICAL CARE MEDICINE Date: 07/06/17 Time: 900 SUBJECTIVE: Patient seen and examined. Brother at bedside updated. PHYSICAL EXAM: Vital Signs: Reviewed. Neurologic: Rass -2., off prop he awakes and follows commands. HEENT: pupils equal. Sclera anicteric. Trachea midline. Cardiovascular: S1 S2 Respiratory: dec b/l Abdomen: Soft, distended, nt. +anasarca but a touch better Extremities: Warm. anasarca, chronic skin changes LABS: Reviewed. IMAGING: Reviewed. MEDICATIONS: Reviewed. ASSESSMENT: 56 M Acute hypoxic resp failure Acute pulm edema Atelectasis B/l pleural effusions COPD PCV Anasarca Electrolyte dysregulation Deconditioned PLAN: Neurologic: prop for Rass -1. Cardiovascular: Perfusing. continued lasix gtt with adjunctive diuretics today. may need inc gtt too. bp stable. Respiratory: aprv adjusted and slwo wean today. further push for more spont breathing on aprv. weakness may still be the issue Gastrointestinal: tf and further bowel regimen. on lactulose. sup. Renal/Metabolic: lasix and f/u lytes. replete K, mg. Infectious Disease: no abx at present. Hematology: onc f/u. on asa. Hct down. Endocrine: glu ok. Musculoskeletal: inc activity. Psych/Social: brother updated Supportive and preventative care as ordered. SUP: H2 VTE prophylaxis: arixtra Escobedo catheter given critical illness, monitoring needs for accurate assessment of ANNETTE and KDIGO criteria for critically ill patients and to avoid potential harms of urinary retention, skin breakdown/ulcers. Disposition: ICU Code Status: Full Critical Care Time: 41min Yvette Velasquez DO
[2017-07-06] MEDS: acetaZOLAMIDE VIAL* 250 MG in NS 0.9% 50 ML* 50 ML IVPB SCH ×2 (11:52→22:00)
[2017-07-06] MEDS ORDERED: Sodium Phosphate ADULT ENEMA* 118 ml bottle PR ONE (16:30)
[2017-07-06] MEDS: fentaNYL* 50 MCG/ML 2 ML VIAL (100 MCG VIAL) IV SLOW PU PRN (19:55)
[2017-07-06] MEDS ORDERED: Chlorhexidine MW 0.12% 473ML* STOCK BOTTLE * USE UNIT DOSE SCH (19:59)
[2017-07-07] MEDS: Propofol* 100 ML IV SCH ×5 (01:42→17:52)
[2017-07-07] MEDS: Chlorhexidine MW 0.12% 473ML* STOCK BOTTLE * USE UNIT DOSE SCH ×6 (02:27→22:14)
[2017-07-07] MEDS: fentaNYL* 50 MCG/ML 2 ML VIAL (100 MCG VIAL) IV SLOW PU PRN (04:04)
[2017-07-07 06:28] LABS: Hematocrit 49 % (42-52); Hemoglobin 15.9 g/dl (14.0-18.0); Mean Corpuscular HGB Conc 33 g/dl (31-36); Mean Corpuscular Hemoglobin 32 pg (27-31); Mean Corpuscular Volume 99 fL (80-94); Mean Platelet Volume 10 um3 (7.4-10.4); Red Blood Count 4.97 10^6/ul (4.0-5.4); Red Cell Distribution Width 16 % (10.5-15); White Blood Count 9.9 10^3/ul (3.5-10.8)
[2017-07-07 06:43] LABS: BUN/Creatinine Ratio 42.3 (8-20); Calcium 9.4 mg/dL (8.6-10.3); EGFR African American 212.2 (>60); Magnesium 1.9 mg/dL (1.9-2.7); Phosphorus 3.4 mg/dL (2.5-5.0)
[2017-07-07 06:47] LABS: Potassium 2.6 mmol/L (3.5-5.0)
[2017-07-07] MEDS ORDERED: Magnesium Sulfate 1 GM IV* 1 GM/100 ML BAG IV ONE (08:00)
[2017-07-07] MEDS: KCL 20 MEQ/100 ML IVPREMIX* 20 MEQ/100 ML BAG IV SCH ×6 (08:35→18:34)
--- NOTE | 2017-07-07 08:40 | RAD ---
HISTORY: Respiratory failure COMPARISONS: July 04, 2017 VIEWS:1: Single frontal portable view of the chest at 8:00 AM FINDINGS: LINES AND TUBES: An endotracheal tube is noted with the tip overlying the trachea between the clavicles and the rylie. A gastric tube is noted. The tip is not well visualized secondary to technique. A right internal jugular venous catheter is noted with tip overlying the expected location of the superior vena cava. CARDIOMEDIASTINAL SILHOUETTE: The cardiomediastinal silhouette is normal for portable technique. PLEURA: The right costophrenic angle is sharp. LUNG PARENCHYMA: There has been complete opacification of the left hemithorax. ABDOMEN: The upper abdomen is clear. There is no subphrenic gas. BONES AND SOFT TISSUES: No bone or soft tissue abnormalities are noted. IMPRESSION: 1. LINES AND TUBES ABOVE. 2. THERE HAS BEEN INTERVAL DEVELOPMENT OF COMPLETE OPACIFICATION OF LEFT HEMITHORAX WHICH MAY INDICATE A LARGE LEFT PLEURAL EFFUSION VERSUS COMPLETE ATELECTASIS OF THE LUNG.
[2017-07-07] MEDS: acetaZOLAMIDE VIAL* 250 MG in NS 0.9% 50 ML* 50 ML IVPB SCH ×2 (09:34→22:16)
[2017-07-07] MEDS: Senna TAB G TUBE SCH (09:36)
[2017-07-07] MEDS: Potassium Chloride LIQUID* 20 MEQ PACKET G TUBE SCH ×3 (09:36→22:14)
[2017-07-07] MEDS: Spironolactone TAB* 25 MG G TUBE SCH (09:36)
[2017-07-07] MEDS: Aspirin EC Low Dose* 81 MG TAB.EC PO SCH (09:36)
[2017-07-07] MEDS: Fondaparinux* 2.5 MG/0.5 ML SYRINGE SUBCUT SCH (09:37)
[2017-07-07] MEDS ORDERED: Magnesium Sulfate 2 GM IV* 2 GM/50 ML BAG IVPB ONE (09:59)
[2017-07-07] MEDS: Famotidine SUSP* 40 MG/5 ML ORAL.SUSP PO SCH (10:16)
[2017-07-07] MEDS ORDERED: fentaNYL* 50 MCG/ML 2 ML VIAL (100 MCG VIAL) IV SLOW PU ONE (10:35)
[2017-07-07] MEDS ORDERED: fentaNYL* 50 MCG/ML 2 ML VIAL (100 MCG VIAL) ONE (10:36)
[2017-07-07] MEDS ORDERED: Lidocaine 2% PF * 5 ML VIAL ONE (10:40)
--- NOTE | 2017-07-07 11:12 | PN ---
Progress Note - Progress Note Date of Service: 07/07/17 Note: CRITICAL CARE MEDICINE Date: 07/07/17 Time: 1000 SUBJECTIVE: Patient seen and examined. etco2 up overnight, return vol down this am. PHYSICAL EXAM: Vital Signs: Reviewed. Neurologic: Rass -2. prop at 30. awakens. HEENT: pupils equal. Sclera anicteric. Trachea midline. Cardiovascular: S1 S2 Respiratory: dec b/l but markedly dec on left without much excursion. Abdomen: Soft, distended, nt. scant bm. +anasarca markedly better Extremities: Warm. +edema. chronic skin changes LABS: Reviewed. IMAGING: Reviewed. CXR with left sided white out/atelectasis. MEDICATIONS: Reviewed. ASSESSMENT: 56 M Acute hypoxic resp failure Acute pulm edema Atelectasis B/l pleural effusions COPD PCV Anasarca Electrolyte dysregulation Deconditioned Mucus plugging PLAN: Neurologic: prop wean again for Rass -1 to 0. Cardiovascular: Perfusing. Continued lasix gtt today. adjunctive diuretics. bp stable. Respiratory: aprv adjusted. sadler suctioning with some return but needs bronch quick. then re-recruit and see if he can tolerate another high level cpap challenge today. Need to move towards liberation attempt in next 24-48h if he has a chance at recovery. would need intermittent niv. Gastrointestinal: tf and further bowel regimen again. on lactulose. sup. Renal/Metabolic: lasix and f/u lytes. replete K, mg. Infectious Disease: no abx.. Hematology: onc f/u. on asa. Hct ok. Endocrine: glu ok. Musculoskeletal: inc activity as able. Psych/Social: will update family. Supportive and preventative care as ordered. SUP: H2 VTE prophylaxis: arixtra Escobedo catheter given critical illness, monitoring needs for accurate assessment of ANNETTE and KDIGO criteria for critically ill patients and to avoid potential harms of urinary retention, skin breakdown/ulcers. Disposition: ICU Code Status: Full Critical Care Time: 40min Yvette Velasquez DO
--- NOTE | 2017-07-07 11:21 | PN ---
Progress Note - Progress Note Date of Service: 07/07/17 Note: CRITICAL CARE MEDICINE PROCEDURE NOTE DATE: 07/07/17 TIME: 1040 SERVICE: Critical Care Medicine LOCATION OF PROCEDURE: ICU PROCEDURE: Bronchoscopy PROCEDURALIST: Dr. Velasquez Consent obtain: No, procedure performed emergently as son unavailable via phone and procedure deemed emergent. Time out held: Yes INDICATION: Acute respiratory failure with left sided complete atelectasis and white out. PROCEDURE: Oxygenation maintained and vitals monitored. Patient in 30degree position. Pre-medication with current sedation. Fentanyl 50mcg IV already given for discomfort. Bronchoscope inserted via endotracheal tube. Ett ~4cm above the rylie. Significant airway inflammation and erosive appearance; no discreet ulcers. Boggy globally. Left mainstem with large mucus plugging suctioned to clearance. Left upperlobe with further plugging and suctioned clear. Significant signs of global tracheobronchomalacia. 10ml aliquots of saline were inserted, total of 30ml. Volumes on vent greatly improved post bronch. Portable chest x-ray pending for later today. Patient otherwise tolerated well. Brother reached via the phone post and updated. Yvette Velasquez DO
[2017-07-07] MEDS ORDERED: Scopolomine PATCH Remove* 1 NOTE MISC PATCH OFF SCH (12:00)
--- NOTE | 2017-07-07 12:01 | RAD ---
HISTORY: Status post bronchoscopy COMPARISONS: July 07, 2017 at 7:04 AM VIEWS:1: Single frontal portable view of the chest at 11:11 AM FINDINGS: LINES AND TUBES: The endotracheal tube is noted with the tip overlying the trachea between the clavicles and the rylie. A gastric tube is noted. The tip is below the [id number] the current examination but is below the diaphragm. A right internal jugular venous catheter is noted with the tip overlying the superior vena cava. CARDIOMEDIASTINAL SILHOUETTE: The cardiomediastinal silhouette is normal for portable technique. PLEURA: There is blunting of the left costophrenic angle LUNG PARENCHYMA: There has been interval resolution of the opacification of the left hemithorax ABDOMEN: The upper abdomen is clear. There is no subphrenic gas. BONES AND SOFT TISSUES: No bone or soft tissue abnormalities are noted. IMPRESSION: 1. LINES AND TUBES ABOVE. 2. INTERVAL RESOLUTION OF THE OPACIFICATION OF THE LEFT HEMITHORAX. 3. SMALL LEFT PLEURAL EFFUSION
--- NOTE | 2017-07-07 13:40 | PN ---
Progress Note - Progress Note Date of Service: 07/07/17 Note: CRITICAL CARE MEDICINE Date: 07/07/17 Time: 1300 Received call back from Cisco Chang ([phone]), and also d/w Jim Chang ([phone]) via phone. We discussed dx, px and plans of care. Looking towards an opportune time to attempt liberation, as a DNI, but with support to see if pt can thrive vs reveal his mechanical ventilation dependency. They expressed understanding. Aster believing pt would ever desire trach. Unfortunately nether son able to be in the area as of yet this weekend, but will discuss with each other and certainly trying to have pts best interests up front. Their uncle Farhan will be locally available. They will consider plans of care and we will re-discuss with me tomorrow am. Disposition: ICU Code Status: Full Critical Care Time: 25min Yvette Velasquez, DO
[2017-07-07] MEDS ORDERED: Magnesium CITRATE* 300 ML BTL G TUBE ONE (14:00)
[2017-07-08] MEDS: Propofol* 100 ML IV SCH ×4 (00:04→19:25)
[2017-07-08] MEDS ORDERED: LORazepam INJ* 2 MG/ML 1 ML VIAL ONE (00:44)
[2017-07-08] MEDS: Chlorhexidine MW 0.12% 473ML* STOCK BOTTLE * USE UNIT DOSE SCH ×6 (03:05→20:00)
[2017-07-08] MEDS: hydrALAZINE IV* 20 MG/ML VIAL IV PRN ×2 (06:32→12:05)
[2017-07-08 07:00] LABS: Hematocrit 50 % (42-52); Hemoglobin 16.4 g/dl (14.0-18.0); Mean Corpuscular HGB Conc 33 g/dl (31-36); Mean Corpuscular Hemoglobin 32 pg (27-31); Mean Corpuscular Volume 97 fL (80-94); Mean Platelet Volume 10 um3 (7.4-10.4); Red Cell Distribution Width 17 % (10.5-15); White Blood Count 9.3 10^3/ul (3.5-10.8)
[2017-07-08 07:07] LABS: Magnesium 2.4 mg/dL (1.9-2.7); Phosphorus 3.4 mg/dL (2.5-5.0)
[2017-07-08] MEDS: fentaNYL* 50 MCG/ML 2 ML VIAL (100 MCG VIAL) IV SLOW PU PRN ×2 (08:32→13:48)
[2017-07-08] MEDS: Senna TAB G TUBE SCH (08:37)
[2017-07-08] MEDS: Spironolactone TAB* 25 MG G TUBE SCH (08:37)
[2017-07-08] MEDS: Aspirin EC Low Dose* 81 MG TAB.EC PO SCH (08:37)
[2017-07-08] MEDS: Fondaparinux* 2.5 MG/0.5 ML SYRINGE SUBCUT SCH (08:37)
[2017-07-08] MEDS: Famotidine SUSP* 40 MG/5 ML ORAL.SUSP PO SCH (08:37)
[2017-07-08] MEDS: Potassium Chloride LIQUID* 20 MEQ PACKET G TUBE SCH ×3 (08:38→20:18)
--- NOTE | 2017-07-08 09:37 | RAD ---
HISTORY: Orogastric tube placement COMPARISONS: July 07, 2017 VIEWS: 2: Frontal portable views of the chest at 9:15 AM FINDINGS: LINES AND TUBES: A gastric tube is noted. The evaluation is limited secondary to technique. The tip appears to be in the left upper quadrant in a prepyloric position. CARDIOMEDIASTINAL SILHOUETTE: The cardiomediastinal silhouette is normal for portable technique. PLEURA: The costophrenic angles are sharp. No pleural abnormalities are noted. LUNG PARENCHYMA: The lungs are clear. ABDOMEN: The upper abdomen is clear. There is no subphrenic gas. BONES AND SOFT TISSUES: No bone or soft tissue abnormalities are noted. IMPRESSION: LIMITED STUDY. LINES AND TUBES ABOVE.
[2017-07-08 10:29] LABS: BUN/Creatinine Ratio 36.9 (8-20); Calcium 9.6 mg/dL (8.6-10.3); EGFR Non-African American 127.5 (>60)
[2017-07-08] MEDS ORDERED: Chlorothiazide IV* 250 MG in NS 0.9% 50 ML* 50 ML IVPB ONE (10:58)
[2017-07-08] MEDS ORDERED: Polyethylene Glycol 3350* 17 GM PACKET G TUBE PRN (10:59)
--- NOTE | 2017-07-08 10:59 | RAD ---
HISTORY: Orogastric tube placement COMPARISONS: July 08, 2017 at 8:20 a.m. VIEWS: 2: frontal portable view of the chest at 10:30 AM FINDINGS: LINES AND TUBES: A gastric tube is noted with the tip in the left upper quadrant in a prepyloric position. An endotracheal tube is noted with tip overlying the trachea just distal to the clavicles. CARDIOMEDIASTINAL SILHOUETTE: The cardiomediastinal silhouette is normal for portable technique. PLEURA: The costophrenic angles are sharp. No pleural abnormalities are noted. LUNG PARENCHYMA: The lungs are clear. ABDOMEN: The upper abdomen is clear. There is no subphrenic gas. BONES AND SOFT TISSUES: No bone or soft tissue abnormalities are noted. IMPRESSION: LINES AND TUBES ABOVE. NO ACTIVE CARDIOPULMONARY DISEASE.
[2017-07-08] MEDS ORDERED: acetaZOLAMIDE VIAL* 250 MG in NS 0.9% 50 ML* 50 ML IVPB SCH (11:00)
--- NOTE | 2017-07-08 11:29 | PN ---
Progress Note - Progress Note Date of Service: 07/08/17 Note: CRITICAL CARE MEDICINE Date: 07/08/17 Time: 1000 SUBJECTIVE: Patient seen and examined. PHYSICAL EXAM: Vital Signs: Reviewed. Neurologic: Rass -1. prop at 10. awakens. follows commands. mild delirious look HEENT: pupils equal. Sclera anicteric. Trachea midline. Cardiovascular: S1 S2 Respiratory: dec b/l but much better; large vol. cpap trial. Abdomen: Soft, much better edema, small bm. Extremities: Warm. +edema markedly better. chronic skin changes LABS: Reviewed. IMAGING: Reviewed. CXR with improved aeration MEDICATIONS: Reviewed. ASSESSMENT: 56 M Acute hypoxic resp failure Acute pulm edema Atelectasis B/l pleural effusions COPD PCV Anasarca Electrolyte dysregulation Deconditioned Mucus plugging PLAN: Neurologic: prop wean again for Rass -1 to 0. better, but not with capacity yet Cardiovascular: Perfusing. Continued lasix gtt another 12 hours then can stop overnight. adjunctives as well. Respiratory: trial high level cpap given high peep needs with air trapping and tbm component. aprv tonight. Would anticipate liberation directly to NIV tomorrow and see if he can improve from there. lungs are much more recruited and lung water markedly better; question of his chronic lung ailments and degree of tbm that may fail his liberation. want to avoid airway concerns as liberating as dnr/dni and would pre-emptily start short steroid course for risk/ benefit prior to liberation. Gastrointestinal: tf resumed with replaced ogt. bm better but need to promote further today with expanded regimen. Renal/Metabolic: lasix and f/u lytes. replete K, mg. Infectious Disease: no abx. Hematology: keep on asa. Hct up a touch and will follow up. no signs of hypervisc. Endocrine: glu ok. Musculoskeletal: inc activity as able. Psych/Social: d/w pts uncle and his son Jim via phone. Jim and Cisco in agreement with plans to loberate from vent tomorrow as DNR/DNI, but I'll be talking with Jim again tomorrow am prior too. Supportive and preventative care as ordered. SUP: H2 VTE prophylaxis: arixtra Escobedo catheter given critical illness, monitoring needs for accurate assessment of ANNETTE and KDIGO criteria for critically ill patients and to avoid potential harms of urinary retention, skin breakdown/ulcers. Disposition: ICU Code Status: Full Critical Care Time: 40min Yvette Velasquez DO
[2017-07-08] MEDS: acetaZOLAMIDE VIAL* 250 MG in NS 0.9% 50 ML* 50 ML IVPB SCH ×2 (11:50→12:48)
[2017-07-08] MEDS ORDERED: LORazepam INJ* 2 MG/ML 1 ML VIAL IV PUSH ONE (12:14)
[2017-07-08] MEDS: KCL 20 MEQ/100 ML IVPREMIX* 20 MEQ/100 ML BAG IV SCH ×3 (12:18→18:22)
[2017-07-08] MEDS: Multivitamins ADULT w/MIN LIQ* 15 ML UDC PO SCH (13:48)
[2017-07-09] MEDS: Chlorhexidine MW 0.12% 473ML* STOCK BOTTLE * USE UNIT DOSE SCH ×3 (00:05→08:11)
[2017-07-09] MEDS: fentaNYL* 50 MCG/ML 2 ML VIAL (100 MCG VIAL) IV SLOW PU PRN ×3 (00:07→21:14)
[2017-07-09] MEDS: Chlorhexidine MOUTHWASH 0.12%* 15 ML UDC SCH (00:17)
[2017-07-09] MEDS: Propofol* 100 ML IV SCH ×3 (00:18→08:21)
[2017-07-09] MEDS: Dexamethasone IV* 4 MG/ML 1 ML (4 MG) IV SLOW PU SCH ×3 (05:18→18:22)
[2017-07-09 06:11] LABS: Blood Urea Nitrogen 32 mg/dL (6-24); CO2 Carbon Dioxide 31 mmol/L (22-32); Chloride 100 mmol/L (101-111); EGFR African American 129.1 (>60); EGFR Non-African American 100.4 (>60); Glucose 105 mg/dL (70-100); Phosphorus 4.4 mg/dL (2.5-5.0); Sodium 142 mmol/L (133-145)
[2017-07-09 06:17] LABS: Anion Gap 11 mmol/L (2-11)
[2017-07-09 07:37] LABS: Magnesium 2.6 mg/dL (1.9-2.7)
[2017-07-09] MEDS: acetaZOLAMIDE VIAL* 250 MG in NS 0.9% 50 ML* 50 ML IVPB SCH (08:08)
[2017-07-09] MEDS: Spironolactone TAB* 25 MG G TUBE SCH (08:10)
[2017-07-09] MEDS: Aspirin EC Low Dose* 81 MG TAB.EC PO SCH (08:10)
[2017-07-09] MEDS: Famotidine SUSP* 40 MG/5 ML ORAL.SUSP PO SCH (08:10)
[2017-07-09] MEDS: Multivitamins ADULT w/MIN LIQ* 15 ML UDC PO SCH (08:10)
[2017-07-09] MEDS: Fondaparinux* 2.5 MG/0.5 ML SYRINGE SUBCUT SCH (08:10)
[2017-07-09] MEDS: Senna TAB G TUBE SCH (08:10)
[2017-07-09] MEDS: Potassium Chloride LIQUID* 20 MEQ PACKET G TUBE SCH (08:10)
[2017-07-09] MEDS ORDERED: Acetaminophen IV 1GM/100ML * 1,000 MG in PREMIX* 100 ML IVPB ONE (09:51)
[2017-07-09] MEDS ORDERED: LORazepam INJ* 2 MG/ML 1 ML VIAL IV PUSH ONE (10:20)
[2017-07-09] MEDS ORDERED: LORazepam INJ* 2 MG/ML 1 ML VIAL ONE (10:22)
--- NOTE | 2017-07-09 10:28 | PN ---
Progress Note - Progress Note Date of Service: 07/09/17 Note: CRITICAL CARE MEDICINE Date: 07/09/17 Time: 900 SUBJECTIVE: Patient seen and examined. PHYSICAL EXAM: Vital Signs: Reviewed. Neurologic: off prop. awakens. follows commands. mild delirium. HEENT: pupils small, equal. Sclera anicteric. Trachea midline. Cardiovascular: S1 S2 Respiratory: dec b/l but clear and distant. mild inc secretions. cpap trial . Abdomen: Soft, much better edema Extremities: Warm. +edema markedly better. chronic skin changes LABS: Reviewed. IMAGING: Reviewed. MEDICATIONS: Reviewed. ASSESSMENT: 56 M Acute hypoxic resp failure Acute pulm edema Atelectasis B/l pleural effusions COPD PCV Anasarca Electrolyte dysregulation Deconditioned Mucus plugging PLAN: Neurologic: prop off. may need a dose of anxiolytic. looking to liberate and see if at some point he can re-gain capacity as he still does not possess at present. Cardiovascular: Perfusing. off lasix gtt. done well. may need afterload reduction post liberation but see how he does first. Respiratory: cpap this am and then liberate directly to niv. f/u air trapping and tbm needs. hopefully can tolerate the transition. dnr/dni now. short steroid course for risk/benefit prior to liberation. Gastrointestinal: tf off. bowels have improved but still need more. Renal/Metabolic: holding diuretics. lytes ok today. Infectious Disease: no abx although fever curve up. May be more bronchtitic; again, liberating today. Hematology: asa. f/u Hct Endocrine: glu ok. Musculoskeletal: inc activity as able post liberation. Psych/Social: d/w pts son Jim via phone, who has conversed with Cisco as well and all in agreement with plans to liberate today as DNR/DNI, with trial niv. explained to Jim I would be calling later to update. pt brother will be here around 1p today. Supportive and preventative care as ordered. SUP: H2 VTE prophylaxis: arixtra Escobedo catheter given critical illness, monitoring needs for accurate assessment of ANNETTE and KDIGO criteria for critically ill patients and to avoid potential harms of urinary retention, skin breakdown/ulcers. Disposition: ICU Code Status: Full Critical Care Time: 40min Yvette Velasquez DO
[2017-07-09] MEDS: Saline FLUSH-CENTRAL* 10 ML SYRINGE CENT\\PICC SCH ×2 (11:33→23:52)
[2017-07-09] MEDS: hydrALAZINE IV* 20 MG/ML VIAL IV PRN ×2 (11:38→21:04)
[2017-07-09] MEDS: Albuterol/Ipratropium NEB.SOL* Albuterol 2.5 MG/Ipratropium 0.5 MG 3 ML INH PRN (12:50)
--- NOTE | 2017-07-09 12:52 | PN ---
Progress Note - Progress Note Date of Service: 07/09/17 Note: CRITICAL CARE MEDICINE Date: 07/09/17 Time: 1230 Pt liberated a little after 11. Tolerated transition to NIV. Left nasal trumpet placed to help flow. Just now placed on 40% mask and seeing how he can equilibrate to more kaw negative pressure respirations. Mostly upper chest movement and exp wheeze when forced. No voice yet. Attempting to answer questions but undiscernible answers. No distress but delirium evident. Continued care. Pts son Jim again updated via phone and expresses understanding. Disposition: ICU Code Status: DNR/DNI, trial niv. Critical Care Time: 20min additional F. Carlito Velasquez,
[2017-07-09] MEDS: LORazepam INJ* 2 MG/ML 1 ML VIAL IV PUSH PRN ×3 (15:21→23:48)
[2017-07-10] MEDS: hydrALAZINE IV* 20 MG/ML VIAL IV PRN ×4 (02:10→20:24)
[2017-07-10] MEDS: fentaNYL* 50 MCG/ML 2 ML VIAL (100 MCG VIAL) IV SLOW PU PRN ×7 (02:11→23:40)
[2017-07-10 05:21] LABS: Hematocrit 51 % (42-52); Hemoglobin 16.1 g/dl (14.0-18.0); Mean Corpuscular HGB Conc 32 g/dl (31-36); Mean Corpuscular Hemoglobin 31 pg (27-31); Mean Corpuscular Volume 99 fL (80-94); Mean Platelet Volume 10 um3 (7.4-10.4); Red Blood Count 5.17 10^6/ul (4.0-5.4); Red Cell Distribution Width 17 % (10.5-15); White Blood Count 8.2 10^3/ul (3.5-10.8)
[2017-07-10 05:39] LABS: BUN/Creatinine Ratio 48.4 (8-20); Calcium 9.5 mg/dL (8.6-10.3); EGFR Non-African American 129.8 (>60); Magnesium 2.5 mg/dL (1.9-2.7); Phosphorus 3.1 mg/dL (2.5-5.0)
[2017-07-10 05:44] LABS: Potassium 2.7 mmol/L (3.5-5.0)
[2017-07-10] MEDS: LORazepam INJ* 2 MG/ML 1 ML VIAL IV PUSH PRN ×5 (06:03→23:39)
[2017-07-10] MEDS: KCL 10 MEQ/50 ML IVPREMIX* 10 MEQ/50 ML BAG IV SCH ×3 (06:04→08:50)
[2017-07-10] MEDS: Fondaparinux* 2.5 MG/0.5 ML SYRINGE SUBCUT SCH (07:45)
[2017-07-10] MEDS: Albuterol/Ipratropium NEB.SOL* Albuterol 2.5 MG/Ipratropium 0.5 MG 3 ML INH PRN ×2 (10:27→15:04)
--- NOTE | 2017-07-10 10:36 | PN ---
Progress Note - Progress Note Date of Service: 07/10/17 Note: CRITICAL CARE MEDICINE Date: 07/10/17 Time: 940 SUBJECTIVE: Patient seen and examined. d/w nursing and resp PHYSICAL EXAM: Vital Signs: Reviewed. stable. Neurologic:awake. follows commands. attempts communication but incoherent. mild delirium persists. not holding capacity yet but improving. HEENT: pupils small, equal. Sclera anicteric. Trachea midline. Nasal trumpet in place. Cardiovascular: S1 S2 Respiratory: dec with bl rhonchi but clears some with cough. face tent. wore bipap till 530a Abdomen: Soft, nt, obese Extremities: Warm. edema better. chronic skin changes LABS: Reviewed. IMAGING: Reviewed. MEDICATIONS: Reviewed. ASSESSMENT: 56 M Acute hypoxic resp failure Acute pulm edema Atelectasis B/l pleural effusions COPD PCV Anasarca Electrolyte dysregulation Deconditioned Mucus plugging PLAN: Neurologic: improving. prns. less meds the better. Cardiovascular: Perfusing. on dry side and maintained there with not much intake today. Respiratory: O2 titration today. metaneb q4 while awake and nocturnal bipap again tonight. Gastrointestinal: will need official swallow eval come tuesday; likely place ngt tomorrow if resp status adequete and provide nutrition as he still has a long road ahead. sup Renal/Metabolic: hold diuretics. lytes replete. Infectious Disease: no abx need. Hematology: asa. f/u Hct as holding but may creep up and need dilution. Endocrine: glu ok. Musculoskeletal: inc activity as able. PT eval Psych/Social: will update family Supportive and preventative care as ordered. SUP: H2 VTE prophylaxis: arixtra Escobedo catheter given critical illness, monitoring needs for accurate assessment of ANNETTE and KDIGO criteria for critically ill patients and to avoid potential harms of urinary retention, skin breakdown/ulcers. Disposition: ICU Code Status: Full Critical Care Time: 35min Yvette Velasquez DO
[2017-07-10] MEDS: Spironolactone TAB* 25 MG G TUBE SCH (10:49)
[2017-07-10] MEDS: Famotidine SUSP* 40 MG/5 ML ORAL.SUSP PO SCH (10:49)
[2017-07-10] MEDS: Aspirin EC Low Dose* 81 MG TAB.EC PO SCH (10:49)
[2017-07-10] MEDS: KCL 20 MEQ/100 ML IVPREMIX* 20 MEQ/100 ML BAG IV SCH ×3 (10:56→16:06)
[2017-07-10] MEDS ORDERED: Famotidine IV* 10 MG/ML 2 ML (20 mg) IV SLOW PU ONE (11:00)
[2017-07-10] MEDS ORDERED: cloNIDine 0.1 MG PATCH* 0.1 MG/24 HR 7 DAY PATCH TRANSDERM SCH (11:00)
[2017-07-10] MEDS: Saline FLUSH-CENTRAL* 10 ML SYRINGE CENT\\PICC SCH ×2 (11:36→23:39)
[2017-07-10] MEDS: acetaZOLAMIDE VIAL* 250 MG in NS 0.9% 50 ML* 50 ML IVPB SCH (13:27)
[2017-07-11] MEDS: fentaNYL* 50 MCG/ML 2 ML VIAL (100 MCG VIAL) IV SLOW PU PRN ×5 (01:32→12:11)
[2017-07-11] MEDS ORDERED: Acetaminophen SUPP* 650 MG SUPP PR ONE (04:05)
[2017-07-11] MEDS: LORazepam INJ* 2 MG/ML 1 ML VIAL IV PUSH PRN ×3 (04:21→12:10)
[2017-07-11 06:13] LABS: Hematocrit 56 % (42-52); Hemoglobin 17.3 g/dl (14.0-18.0); Mean Corpuscular HGB Conc 31 g/dl (31-36); Mean Corpuscular Hemoglobin 31 pg (27-31); Mean Corpuscular Volume 101 fL (80-94); Mean Platelet Volume 10 um3 (7.4-10.4); Red Blood Count 5.51 10^6/ul (4.0-5.4); Red Cell Distribution Width 17 % (10.5-15); White Blood Count 8.9 10^3/ul (3.5-10.8)
[2017-07-11 06:15] LABS: Comments Flag Yes
[2017-07-11 06:26] LABS: BUN/Creatinine Ratio 39.1 (8-20); Calcium 9.8 mg/dL (8.6-10.3); EGFR Non-African American 129.8 (>60); Magnesium 2.5 mg/dL (1.9-2.7); Phosphorus 3.3 mg/dL (2.5-5.0); Potassium 2.9 mmol/L (3.5-5.0)
[2017-07-11] MEDS: Albuterol/Ipratropium NEB.SOL* Albuterol 2.5 MG/Ipratropium 0.5 MG 3 ML INH PRN ×4 (08:00→20:52)
[2017-07-11] MEDS: Spironolactone TAB* 25 MG G TUBE SCH (08:49)
[2017-07-11] MEDS: Aspirin EC Low Dose* 81 MG TAB.EC PO SCH (08:49)
[2017-07-11] MEDS ORDERED: D5W KCl 40 MEQ 1000 ML* 1,000 ML IV SCH (09:00)
--- NOTE | 2017-07-11 09:29 | PN ---
Progress Note - Progress Note Date of Service: 07/11/17 Note: CRITICAL CARE MEDICINE Date: 07/11/17 Time: 830 SUBJECTIVE: Patient seen and examined. PHYSICAL EXAM: Vital Signs: Reviewed. stable although HR and rr up a touch. Neurologic: awake. follows some commands but a bit more drousy. HEENT: pupils small, equal. Sclera anicteric. Trachea midline. Nasal trumpet in place. Cardiovascular: S1 S2 tachy Respiratory: dec with some rhonchi and more dec on left base again. Abdomen: Soft, nt, obese Extremities: Warm. edema stable. chronic skin changes LABS: Reviewed. IMAGING: Reviewed. MEDICATIONS: Reviewed. ASSESSMENT: 56 M Acute hypoxic resp failure Acute pulm edema Atelectasis B/l pleural effusions COPD PCV Anasarca Electrolyte dysregulation Deconditioned Mucus plugging PLAN: Neurologic: stable, but post rx this am perhaps a bit more drousy Cardiovascular: Perfusing. on dry side and can give back some water today given his dynamics and lack of po. Respiratory: O2 titration still with continued metaneb q4 while awake and nocturnal bipap again. check cxr as may need some work to prevent further atelectasis. Gastrointestinal: hopefully can improve towards swallow eval tomorrow, but remain npo today. hold off on ngt today as well given his am dyanmics. Renal/Metabolic: gentle water replacement. k replacement. Infectious Disease: has had some low grade fevers that are more likely atelectasis and bronchitits; check cxr. may need coverage for bronchtitis for risk/benefit Hematology: asa. Hct up and give back water today. may need to dilute this week if rising. Endocrine: glu ok. Musculoskeletal: inc activity as able. PT eval Psych/Social: will update family Supportive and preventative care as ordered. SUP: H2 VTE prophylaxis: arixtra Escobedo catheter given critical illness, monitoring needs for accurate assessment of ANNETTE and KDIGO criteria for critically ill patients and to avoid potential harms of urinary retention, skin breakdown/ulcers. Disposition: ICU, slow progress Code Status: Full Critical Care Time: 35min Yvette Velasquez DO
[2017-07-11] MEDS: KCL 20 MEQ/100 ML IVPREMIX* 20 MEQ/100 ML BAG IV SCH ×3 (09:39→13:53)
[2017-07-11] MEDS: Fondaparinux* 2.5 MG/0.5 ML SYRINGE SUBCUT SCH (09:39)
[2017-07-11] MEDS: Famotidine IV* 10 MG/ML 2 ML (20 mg) IV SLOW PU SCH (09:39)
[2017-07-11] MEDS ORDERED: Sodium Citrate/Citric Acid* 15 ML UDC PO SCH (10:00)
[2017-07-11] MEDS ORDERED: Sodium Bicarbonate 8.4% IV* 150 MEQ in D5W 1000 ML BAG* 1,000 ML IVPB SCH (10:00)
--- NOTE | 2017-07-11 10:25 | RAD ---
Indication: Shortness of breath, respiratory failure, chronic obstructive pulmonary disease. Comparison: July 08, 2017 chest radiograph. Technique: Upright AP 0950 hours Report: Tip of RIGHT upper chimney PICC at level of the RIGHT brachiocephalic/superior vena cava junction directed central. Negative for pneumothorax. Moderate bilateral dependent pleural effusions with proportional atelectasis. Negative for cardiomegaly. Unremarkable central pulmonary vasculature. IMPRESSION: Moderate bilateral dependent pleural effusions with proportional atelectasis significantly increased over the July 08, 2017 exam.
[2017-07-11] MEDS: Saline FLUSH-CENTRAL* 10 ML SYRINGE CENT\\PICC SCH (11:44)
[2017-07-11] MEDS ORDERED: Zosyn per Pharmacy* NOTE FOLLOW UP SCH (13:00)
[2017-07-11] MEDS: Acetylcysteine INHALATION SOL* 200 MG/ML NEB.SOLN 10 ML INH PRN ×2 (15:29→20:51)
[2017-07-11] MEDS ORDERED: Chlorothiazide IV* 250 MG in NS 0.9% 50 ML* 50 ML IVPB ONE (16:30)
[2017-07-11] MEDS: ZOSYN 3.375 GM Q8H per EXTENDED INFUSION IVPB SCH ×2 (16:59)
[2017-07-11] MEDS ORDERED: Furosemide IV* 10 MG/ML VIAL (40 MG) IV SLOW PU ONE (17:00)
[2017-07-12] MEDS: Saline FLUSH-CENTRAL* 10 ML SYRINGE CENT\\PICC SCH ×3 (00:37→23:10)
[2017-07-12] MEDS: fentaNYL* 50 MCG/ML 2 ML VIAL (100 MCG VIAL) IV SLOW PU PRN ×2 (00:43→03:51)
[2017-07-12] MEDS: LORazepam INJ* 2 MG/ML 1 ML VIAL IV PUSH PRN ×3 (00:59→23:10)
[2017-07-12] MEDS: hydrALAZINE IV* 20 MG/ML VIAL IV PRN (01:00)
[2017-07-12] MEDS: ZOSYN 3.375 GM Q8H per EXTENDED INFUSION IVPB SCH ×6 (02:16→18:07)
[2017-07-12] MEDS ORDERED: Potassium Chloride IV* 40 MEQ in D5W 1000 ML BAG* 1,000 ML IVPB SCH (05:00)
[2017-07-12] MEDS ORDERED: D5W KCl 40 MEQ 1000 ML* 1,000 ML IV SCH ×2 (05:00→10:00)
[2017-07-12 07:00] LABS: Hematocrit 56 % (42-52); Hemoglobin 17.9 g/dl (14.0-18.0); Mean Corpuscular HGB Conc 32 g/dl (31-36); Mean Corpuscular Hemoglobin 32 pg (27-31); Mean Corpuscular Volume 99 fL (80-94); Mean Platelet Volume 11 um3 (7.4-10.4); Red Blood Count 5.68 10^6/ul (4.0-5.4); Red Cell Distribution Width 17 % (10.5-15); White Blood Count 8.1 10^3/ul (3.5-10.8)
[2017-07-12 07:06] LABS: BUN/Creatinine Ratio 27.7 (8-20); Calcium 9.6 mg/dL (8.6-10.3); EGFR African American 123.7 (>60); EGFR Non-African American 96.2 (>60); Magnesium 2.3 mg/dL (1.9-2.7); Phosphorus 3.3 mg/dL (2.5-5.0)
[2017-07-12] MEDS: Acetylcysteine INHALATION SOL* 200 MG/ML NEB.SOLN 10 ML INH PRN (08:08)
[2017-07-12] MEDS: Albuterol/Ipratropium NEB.SOL* Albuterol 2.5 MG/Ipratropium 0.5 MG 3 ML INH PRN ×3 (08:08→23:18)
[2017-07-12] MEDS: Spironolactone TAB* 25 MG G TUBE SCH (08:44)
[2017-07-12] MEDS: Aspirin EC Low Dose* 81 MG TAB.EC PO SCH (08:44)
[2017-07-12] MEDS: Famotidine IV* 10 MG/ML 2 ML (20 mg) IV SLOW PU SCH (08:52)
[2017-07-12] MEDS: Fondaparinux* 2.5 MG/0.5 ML SYRINGE SUBCUT SCH (08:53)
--- NOTE | 2017-07-12 11:12 | PN ---
Progress Note - Progress Note Date of Service: 07/12/17 Note: CRITICAL CARE MEDICINE Date: 07/12/17 Time: 930 SUBJECTIVE: Patient seen and examined. PHYSICAL EXAM: Vital Signs: Reviewed. stable although HR still up; temp up too. Neurologic: awake. follows some commands but cannot regain capacity yet. HEENT: pupils small, equal. Sclera anicteric. Trachea midline. Cardiovascular: S1 S2 tachy Respiratory: more rhonchi and wheeze on R with dec similar on left base again. Abdomen: Soft, nt, obese Extremities: Warm. edema stable. chronic skin changes LABS: Reviewed. IMAGING: Reviewed. MEDICATIONS: Reviewed. ASSESSMENT: 56 M Acute hypoxic resp failure Acute pulm edema Atelectasis B/l pleural effusions COPD PCV Anasarca Electrolyte dysregulation Deconditioned Mucus plugging PLAN: Neurologic: sympathetics up and may be driven by many factors, including delirium, wob, etc. Would allow him to combat this further today. may need to trial precedex later if unable to dissipate vs atypical. Certainly his ongoing resp ailments are more likely to blame and needs to work through before blunting his innate response. Cardiovascular: Perfusing. sym and mineralcorticoid high. Need to give back water again today and yet avoid lung water. remains a difficult balance. can still utilize thiazide as well. Respiratory: Utilize HFO2 again today to avoid high negative pressure attempts and allow laminar flow as much as able. TBM still a major yun that unclear if he can still overcome. Metaneb q4. NIV nocturnally. hopefully can again push him through. May need a bronch to help him over the edge but I would not want to do routinely. Gastrointestinal: nutrition on back seat again today given where his resp dynamics remain. will be getting dextrose in water. Need to see if he can maintain and impove resp come tomorrow as next test will be ngt tomorrow and tf. sup. Renal/Metabolic: further water replacement. k replacement. Infectious Disease: fevers more sec to atelectasis and sympathetics perhaps. On zosyn for bronchitits. Hematology: asa pr. Hct up and give back water today and re-eval. may need dilution. Endocrine: glu ok. Musculoskeletal: inc activity as able. PT Psych/Social: brother updated via phone. Supportive and preventative care as ordered. SUP: H2 VTE prophylaxis: arixtra Escobedo catheter given critical illness, monitoring needs for accurate assessment of ANNETTE and KDIGO criteria for critically ill patients and to avoid potential harms of urinary retention, skin breakdown/ulcers. Disposition: ICU, slow progress Code Status: Full Critical Care Time: 34min Yvette Velasquez DO
[2017-07-12] MEDS: KCL 20 MEQ/100 ML IVPREMIX* 20 MEQ/100 ML BAG IV SCH ×3 (11:37→14:01)
[2017-07-12] MEDS ORDERED: Spiriva Inhaler DEVICE* 1 EACH DEVICE SCH (12:00)
[2017-07-12] MEDS ORDERED: cloNIDine 0.1 MG PATCH* 0.1 MG/24 HR 7 DAY PATCH TRANSDERM SCH (12:00)
[2017-07-12] MEDS: Aspirin SUPP* 300 MG PR SCH (12:28)
[2017-07-12] MEDS ORDERED: Acetaminophen SUPP* 650 MG SUPP PR PRN (12:47)
[2017-07-12] MEDS: Mometasone/Formoter 100/5 MDI INH SCH ×2 (12:59→20:03)
[2017-07-12] MEDS ORDERED: cloNIDine 0.2 MG PATCH* 0.2 MG/24 HR 7 DAY PATCH TRANSDERM SCH (13:00)
[2017-07-12] MEDS: Tiotropium CAP.INH* CAP.INH/18 MCG (USE ORDER SET !) INH SCH (13:00)
[2017-07-12] MEDS: Potassium Chloride IV* 40 MEQ in D5W 1000 ML BAG* 1,000 ML IVPB SCH (13:15)
[2017-07-12] MEDS: Albuterol 2.5 MG/3 ML NEB.SOL* (0.083%) INH SCH ×3 (16:22→23:19)
[2017-07-13] MEDS: ZOSYN 3.375 GM Q8H per EXTENDED INFUSION IVPB SCH ×6 (02:02→18:30)
[2017-07-13] MEDS: fentaNYL* 50 MCG/ML 2 ML VIAL (100 MCG VIAL) IV SLOW PU PRN ×3 (02:19→17:26)
[2017-07-13] MEDS: LORazepam INJ* 2 MG/ML 1 ML VIAL IV PUSH PRN ×2 (03:04→18:22)
[2017-07-13] MEDS: Albuterol 2.5 MG/3 ML NEB.SOL* (0.083%) INH SCH ×5 (03:24→20:19)
[2017-07-13] MEDS: Potassium Chloride IV* 40 MEQ in D5W 1000 ML BAG* 1,000 ML IVPB SCH ×2 (05:27→21:07)
[2017-07-13 06:31] LABS: BUN/Creatinine Ratio 29.6 (8-20); Calcium 9.1 mg/dL (8.6-10.3); EGFR African American 127.2 (>60); EGFR Non-African American 98.9 (>60); Magnesium 2.4 mg/dL (1.9-2.7); Potassium 3.2 mmol/L (3.5-5.0)
[2017-07-13] MEDS: Mometasone/Formoter 100/5 MDI INH SCH ×2 (07:30→20:19)
[2017-07-13] MEDS: Tiotropium CAP.INH* CAP.INH/18 MCG (USE ORDER SET !) INH SCH (07:43)
[2017-07-13] MEDS: Famotidine IV* 10 MG/ML 2 ML (20 mg) IV SLOW PU SCH (08:20)
[2017-07-13] MEDS: Fondaparinux* 2.5 MG/0.5 ML SYRINGE SUBCUT SCH (08:20)
[2017-07-13] MEDS: Aspirin SUPP* 300 MG PR SCH (09:01)
--- NOTE | 2017-07-13 09:42 | RAD ---
Indication: Feeding tube placement. Single frontal view of the chest performed at 0858 hours was reviewed. Comparison is made with previous exam dated July 11, 2017. No mediastinal shift towards the left is noted. There is likely left lower lobe atelectasis noted. There is a feeding tube present within the antrum of the stomach. Right lung field is clear. IMPRESSION: EVIDENCE OF LEFT LOWER LOBE ATELECTASIS WITH LEFT PLEURAL EFFUSION. FEEDING TUBE APPEARS TO BE WITHIN THE ANTRUM OF THE STOMACH.
[2017-07-13] MEDS ORDERED: Midazolam* 1 MG/ML 5 ML VIAL (5 MG) ONE ×2 (10:53→10:54)
[2017-07-13] MEDS ORDERED: Lidocaine 2% 10 ML* VIAL ONE (10:54)
[2017-07-13] MEDS ORDERED: fentaNYL* 50 MCG/ML 2 ML VIAL (100 MCG VIAL) ONE (10:54)
[2017-07-13] MEDS ORDERED: Lidocaine 2% PF * 5 ML VIAL ONE (11:02)
[2017-07-13] MEDS ORDERED: Lidocaine 1%* 5 ML VIAL ONE (11:04)
[2017-07-13] MEDS ORDERED: Naloxone* 0.4 MG/ML 1 ML VIAL ONE (11:14)
[2017-07-13] MEDS ORDERED: Flumazenil* 0.1 MG/ML 5 ML MDV ONE (11:18)
[2017-07-13] MEDS ORDERED: Lidocaine 1% INJ* 10 MG/ML 30 ML SDV ONE (11:18)
[2017-07-13] MEDS ORDERED: Lidocaine 2% (CARDIAC)* 20 MG/ML 5 ML SYRINGE (100 MG) ONE (11:19)
--- NOTE | 2017-07-13 12:21 | PN ---
Progress Note - Progress Note Date of Service: 07/13/17 Note: CRITICAL CARE MEDICINE Date: 07/13/17 Time: 1100 SUBJECTIVE: Patient seen and examined. PHYSICAL EXAM: Vital Signs: Reviewed. HR 90s. Neurologic: awake. follows some commands but still not with capacity yet but slightly improved yet again. HEENT: pupils small, equal. Sclera anicteric. Trachea midline. Cardiovascular: S1 S2 Respiratory: further dec BS on left. attempts cough. Abdomen: Soft, nt, obese Extremities: Warm. chronic skin changes LABS: Reviewed. IMAGING: Reviewed. MEDICATIONS: Reviewed. ASSESSMENT: 56 M Acute hypoxic resp failure Acute pulm edema Atelectasis B/l pleural effusions COPD PCV Anasarca Electrolyte dysregulation Deconditioned Mucus plugging PLAN: Neurologic: sympathetics still up but a touch less perhaps. f/u delirium. correct Na Cardiovascular: Perfusing. on D5w. Respiratory: remain on HFO2 again today and nocturnal bipap. needs bronch today given mucus plugging and his TBM ailements. as d/w pts son via the phone, would not want to be repeating these bronchs often as his dyanmics sec to mainly his degree of TBM and he may not be able to overcome in order to thrive. keep Metaneb q4. NIV nocturnally. bronch today. Gastrointestinal: ngt and tf today. f/u for bms. needs oral water. Renal/Metabolic: water replacement. k replacement. avoid lung water. Infectious Disease: fever down a little. On zosyn for bronchitits given his degree of burdens. May have a 5 day course. Hematology: asa via ngt. Hct up and give back water still and re-eval. Endocrine: glu ok. mineralcorticoids high and Na overload with water depletion. continue to replete and adjust with time. Musculoskeletal: inc activity as able. PT Psych/Social: son Jim updated via phone as well as pts brother at bedside. Supportive and preventative care as ordered. SUP: H2 VTE prophylaxis: arixtra Escobedo catheter given critical illness, monitoring needs for accurate assessment of ANNETTE and KDIGO criteria for critically ill patients and to avoid potential harms of urinary retention, skin breakdown/ulcers. Disposition: ICU, slow progress Code Status: Full Critical Care Time: 35min Yvette Velasquez DO
--- NOTE | 2017-07-13 12:28 | PN ---
Progress Note - Progress Note Date of Service: 07/13/17 Note: CRITICAL CARE MEDICINE PROCEDURE NOTE DATE: 07/13/17 TIME: 1145 SERVICE: Critical Care Medicine LOCATION OF PROCEDURE: ICU PROCEDURE: Bronchoscopy PROCEDURALIST: Dr. Velasquez Consent obtain: Yes, via phone with pts son Jim Chang and with pts brother at bedside serving as witness. Time out held: Yes INDICATION: Acute respiratory failure with left sided complete atelectasis and white out. PROCEDURE: Oxygenation maintained and vitals monitored. Pt already on High flow O2. Patient in 20 degree position. Pre-medication with moderate sedation. Fentanyl 50mcg IV and versed 1mg. Additional versed 1mg and fentanyl 25mcg utilized during procedure. already given for discomfort. Bronchoscope inserted via left nares. difficulty with nares passage at first but then success. Severe collapsable airways from vocal cords on down. Boggy, irritated mucosa. Secretions in trachea and track down to left lung with further secretions on upper and lower lobes. Easily suctioned clear but with severe (>75% collapse of main bronchi and >50% of trachea) tracheobronchomalacia. Aliquots of 10ml saline utilized and cleared with total 60ml utilized for secretion clearance. Portable chest x-ray pending for later today. Patient otherwise tolerated well. Brother updated. Yvette Velasquez,
[2017-07-13] MEDS: Spironolactone TAB* 25 MG G TUBE SCH (12:45)
[2017-07-13] MEDS: Saline FLUSH-CENTRAL* 10 ML SYRINGE CENT\\PICC SCH ×2 (13:04→23:28)
--- NOTE | 2017-07-13 14:19 | RAD ---
Indication: Status post bronchoscopy. Single frontal view of the chest performed at 1227 hours was reviewed. Comparison is made with previous exam dated earlier the same day. No mediastinal shift towards the left is noted with left lower lobe atelectasis. There is some aerated lung in the left upper lobe. Right basilar atelectasis is noted. The patient is status post bronchoscopy with no definite pneumothorax. IMPRESSION: LEFT LOWER LOBE ATELECTASIS WITH MEDIASTINAL SHIFT OF THE STRUCTURES TOWARDS THE LEFT. NO PNEUMOTHORAX IS NOTED.
[2017-07-13] MEDS: Acetaminophen ADULT LIQ* 650 MG/20.3 ML UDC PO PRN (17:26)
[2017-07-14] MEDS: Albuterol 2.5 MG/3 ML NEB.SOL* (0.083%) INH SCH ×7 (00:37→22:34)
[2017-07-14] MEDS: ZOSYN 3.375 GM Q8H per EXTENDED INFUSION IVPB SCH ×6 (02:34→17:58)
[2017-07-14] MEDS: Fondaparinux* 2.5 MG/0.5 ML SYRINGE SUBCUT SCH (08:11)
[2017-07-14] MEDS: Famotidine IV* 10 MG/ML 2 ML (20 mg) IV SLOW PU SCH (08:11)
[2017-07-14] MEDS: Spironolactone TAB* 25 MG G TUBE SCH (08:11)
[2017-07-14] MEDS: Tiotropium CAP.INH* CAP.INH/18 MCG (USE ORDER SET !) INH SCH (08:38)
[2017-07-14] MEDS: Acetylcysteine INHALATION SOL* 200 MG/ML NEB.SOLN 10 ML INH PRN (08:39)
[2017-07-14] MEDS: Mometasone/Formoter 100/5 MDI INH SCH ×2 (08:39→20:19)
[2017-07-14] MEDS: Aspirin SUPP* 300 MG PR SCH (10:00)
--- NOTE | 2017-07-14 11:00 | PN ---
Progress Note - Progress Note Date of Service: 07/14/17 Note: CRITICAL CARE MEDICINE Date: 07/14/17 Time: 1015 SUBJECTIVE: Patient seen and examined. PHYSICAL EXAM: Vital Signs: Reviewed. HFO2 40lpm 100% Neurologic: awake. follows some commands but no overall improvement in mentation. HEENT: pupils equal. Sclera anicteric. Trachea midline. Cardiovascular: S1 S2 Respiratory: dec BS on left. attempts cough. left nares trumpet placed and NT suction for copious secretions. Abdomen: Soft, nt, obese Extremities: Warm. chronic skin changes LABS: Reviewed. IMAGING: Reviewed. MEDICATIONS: Reviewed. ASSESSMENT: 56 M Acute hypoxic resp failure Acute pulm edema Atelectasis Severe TBM B/l pleural effusions COPD PCV Anasarca Electrolyte dysregulation Deconditioned Mucus plugging PLAN: Neurologic: concern for his baseline remaining without capacity and now stopped improving. as resp fail further now the chances of him regaining capacity seem unlikely post delirium and encephalopathy. Cardiovascular: Perfusing ok. on D5w as he remains cellular dry. Respiratory: HFO2 required but is no longer striding towards any meaningful improvement. Still remains dependent on mechanical life supports with no foreseeable improvements at this stage. left lung remains ateletatic sec to severe TBM. Gastrointestinal: ngt and tf held today given worsened resp status this am. can adjust and re-attempt. ngt water. Renal/Metabolic: water replacement. k replacement. avoid lung water but water deficit leaving secretions thick. Infectious Disease: On zosyn for bronchitits benefit. May have a 5 day course. Hematology: asa via ngt. f/u hct Endocrine: glu ok. Musculoskeletal: activity limited sec to participation. Psych/Social: will discuss with family. Supportive and preventative care as ordered. SUP: H2 VTE prophylaxis: arixtra Escobedo catheter given critical illness, monitoring needs for accurate assessment of ANNETTE and KDIGO criteria for critically ill patients and to avoid potential harms of urinary retention, skin breakdown/ulcers. Disposition: ICU, but failing Code Status: Full Critical Care Time: 35min Yvette Velasquez DO
[2017-07-14 11:30] LABS: BUN/Creatinine Ratio 28.7 (8-20); Calcium 9.2 mg/dL (8.6-10.3); EGFR African American 117.2 (>60); EGFR Non-African American 91.1 (>60); Potassium 3.9 mmol/L (3.5-5.0)
--- NOTE | 2017-07-14 11:30 | PN ---
Progress Note - Progress Note Date of Service: 07/14/17 Note: CRITICAL CARE MEDICINE Date: 07/15/17 Time: 1115 D/w pts son via phone (as well as d/w pts brother at bedside). Explained pts inability to thrive sec to his tbm being his main ailment. Continues with mucus plugging and inability to wean from HFO2 and bipap. We continue his support for now, but as recommended: family should gather this weekend as able and look for the time to cess rescue therapy and only utilize passive support. Ie stop bipap, metanebs, high flow O2, NT suction. Support with comfort and O2 as indicated. Pts son Jim expresses understanding. Explained because of pts ailments, that we are adding low dose fent td to ensure a better level of comfort. If family can gather this weekend great, if unable would still discuss a time to cess rescues and support comfort. Code Status: DNR Critical Care Time: 10min Yvette Velasquez,
[2017-07-14] MEDS: Aspirin EC Low Dose* 81 MG TAB.EC PO SCH (12:52)
[2017-07-14] MEDS: Saline FLUSH-CENTRAL* 10 ML SYRINGE CENT\\PICC SCH ×2 (12:52→23:19)
[2017-07-14] MEDS ORDERED: fentaNYL PATCH 12 MCG/HR TRANSDERM SCH (13:00)
[2017-07-14] MEDS: Potassium Chloride IV* 40 MEQ in D5W 1000 ML BAG* 1,000 ML IVPB SCH (15:09)
[2017-07-14] MEDS: fentaNYL* 50 MCG/ML 2 ML VIAL (100 MCG VIAL) IV SLOW PU PRN ×3 (16:20→23:30)
[2017-07-14] MEDS ORDERED: Albuterol 2.5 MG/3 ML NEB.SOL* (0.083%) ONE (19:57)
[2017-07-14] MEDS: fentaNYL Patch Check Q Shift 1 NOTE SCH (23:21)
[2017-07-15] MEDS: Albuterol/Ipratropium NEB.SOL* Albuterol 2.5 MG/Ipratropium 0.5 MG 3 ML INH PRN (00:18)
[2017-07-15] MEDS: ZOSYN 3.375 GM Q8H per EXTENDED INFUSION IVPB SCH ×4 (02:11→09:37)
[2017-07-15] MEDS: Acetaminophen ADULT LIQ* 650 MG/20.3 ML UDC PO PRN ×2 (02:38→22:58)
[2017-07-15] MEDS: Albuterol 2.5 MG/3 ML NEB.SOL* (0.083%) INH SCH ×6 (03:17→22:55)
[2017-07-15] MEDS: fentaNYL* 50 MCG/ML 2 ML VIAL (100 MCG VIAL) IV SLOW PU PRN ×2 (05:42→21:06)
[2017-07-15] MEDS: Potassium Chloride IV* 40 MEQ in D5W 1000 ML BAG* 1,000 ML IVPB SCH (06:18)
[2017-07-15] MEDS: fentaNYL Patch Check Q Shift 1 NOTE SCH ×2 (07:22→19:24)
[2017-07-15] MEDS: Acetylcysteine INHALATION SOL* 200 MG/ML NEB.SOLN 10 ML INH PRN ×3 (08:33→15:50)
[2017-07-15] MEDS: Mometasone/Formoter 100/5 MDI INH SCH ×2 (08:33→19:44)
[2017-07-15] MEDS: Tiotropium CAP.INH* CAP.INH/18 MCG (USE ORDER SET !) INH SCH (08:33)
[2017-07-15] MEDS: Famotidine IV* 10 MG/ML 2 ML (20 mg) IV SLOW PU SCH (09:37)
[2017-07-15] MEDS: Fondaparinux* 2.5 MG/0.5 ML SYRINGE SUBCUT SCH (09:37)
[2017-07-15] MEDS: Spironolactone TAB* 25 MG G TUBE SCH (09:37)
[2017-07-15] MEDS: Aspirin EC Low Dose* 81 MG TAB.EC PO SCH (09:37)
[2017-07-15] MEDS: hydrALAZINE IV* 20 MG/ML VIAL IV PRN ×2 (11:07→18:10)
[2017-07-15] MEDS: Saline FLUSH-CENTRAL* 10 ML SYRINGE CENT\\PICC SCH (11:17)
[2017-07-15] MEDS ORDERED: Pancrelipase CAP* 5,000 UNITS CAP ONE (11:55)
[2017-07-15] MEDS ORDERED: Sodium Bicarbonate (ANTACID)* 650 MG TAB ONE (11:55)
[2017-07-15 12:10] LABS: Hematocrit 52 % (42-52); Hemoglobin 15.9 g/dl (14.0-18.0); Mean Corpuscular HGB Conc 31 g/dl (31-36); Mean Corpuscular Hemoglobin 31 pg (27-31); Mean Corpuscular Volume 102 fL (80-94); Mean Platelet Volume 12 um3 (7.4-10.4); Red Blood Count 5.12 10^6/ul (4.0-5.4); Red Cell Distribution Width 17 % (10.5-15); White Blood Count 9.9 10^3/ul (3.5-10.8)
[2017-07-15 12:11] LABS: Comments Flag Yes
[2017-07-15 12:38] LABS: BUN/Creatinine Ratio 25.7 (8-20); Calcium 8.8 mg/dL (8.6-10.3); EGFR African American 150.6 (>60); EGFR Non-African American 117.1 (>60); Potassium 3.9 mmol/L (3.5-5.0)
[2017-07-15] MEDS ORDERED: Pancrelipase CAP* 5,000 UNITS CAP J TUBE ONE (14:05)
[2017-07-15] MEDS ORDERED: NS 0.9% 1000 ML* 1,000 ML IV SCH (14:30)
--- NOTE | 2017-07-15 15:44 | PN ---
Critical Care Services: [facility] progress note Date: 07/15/17, Time: 3:30 PM Pt seen and examined at bedside. Pt is alert and following simple commands, still not verbal. No acute events o/n PMHx, allergies, Social Hx, FHx are reviewed and unchanged Active Medications Generic Name Dose Route Start Last Admin Trade Name Freq PRN Reason Stop Dose Admin Acetaminophen 650 mg 07/13/17 17:17 07/15/17 02:38 Tylenol Adult Liq* PO 650 mg Q6H PRN Administration FEVER/PAIN Acetylcysteine 400 mg 07/11/17 11:00 07/15/17 12:09 Mucomyst Inhalation Felecia* INH 400 mg Q4H PRN Administration CONGESTION Albuterol 2.5 mg 07/12/17 15:00 07/15/17 12:09 Ventolin 2.5 Mg/3 Ml Neb.Felecia* INH 2.5 mg [id number] AWAKE BERTIN Administration Albuterol/Ipratropium 1 neb 06/30/17 21:53 07/15/17 00:18 Duoneb (Albuterol 2.5 Mg/Ipratropium 0.5 Mg) INH 1 neb Q4H PRN Administration WHEEZING Aspirin 81 mg 07/14/17 11:00 07/15/17 09:37 Aspirin Ec Low Dose* PO 81 mg DAILY BERTIN Administration Clonidine HCl 0.2 mg 07/12/17 13:00 07/12/17 14:07 Oxllumsx-Lsu-4 0.2 Mg Patch* TRANSDERM 0.2 mg Q7D BERTIN Administration Device 1 each 07/12/17 12:00 Tiotropium Inhaler Device* .SEE ORDER .USE w/ SPIRIVA CAPS BERTIN Famotidine 20 mg 07/11/17 09:00 07/15/17 09:37 Pepcid Iv* IV SLOW PU 20 mg DAILY BERTIN Administration Fentanyl 12 mcg 07/14/17 13:00 07/14/17 13:19 Duragesic Patch 12 Mcg/Hr * TRANSDERM 12 mcg Q72H BERTIN Administration Fentanyl Citrate 25 mcg 07/03/17 12:11 07/15/17 05:42 Fentanyl* IV SLOW PU 25 mcg Q2H PRN Administration AGITATION Fondaparinux 2.5 mg 06/30/17 09:00 07/15/17 09:37 Arixtra* SUBCUT 2.5 mg DAILY BERTIN Administration Hydralazine HCl 10 mg 06/29/17 05:41 07/15/17 11:07 Apresoline Iv* IV 10 mg Q4H PRN Administration Systolic >170 Sodium Chloride 1,000 mls @ 0 mls/hr 07/15/17 14:30 Ns 0.9% 1000 Ml* IV PER RATE BERTIN KVO Lorazepam 0.5 mg 07/09/17 13:11 07/13/17 18:22 Ativan Inj* IV PUSH 0.5 mg Q4H PRN Administration ANXIETY Mometasone Furoate/Formoterol Fumar 2 puff 07/12/17 12:00 07/15/17 08:33 Dulera 100/5 Mdi* INH 2 puff BID BERTIN Administration Pharmacy Profile Note 1 note 07/14/17 19:00 07/15/17 07:22 Fentanyl Patch Check Q Shift N/A 1 note 0700,1900 BERTIN Administration Polyethylene Glycol/Electrolytes 17 gm 07/08/17 10:59 07/08/17 12:29 Miralax* G TUBE 17 gm DAILY PRN Administration CONSTIPATION Sodium Chloride 10 ml 07/09/17 11:00 07/15/17 11:17 Central Saline Flush* CENT\PICC Not Given Q12H BERTIN Spironolactone 25 mg 07/05/17 11:00 07/15/17 09:37 Aldactone Tab* G TUBE 25 mg DAILY BERTIN Administration Tiotropium [facility] 1 cap 07/12/17 12:00 07/15/17 08:33 Spiriva Cap.Inh* INH 1 cap DAILY BERTIN Administration LABS: Reviewed. IMAGING: Reviewed. Vital Signs: Temp Pulse Resp BP SpO2 FiO2 100.4 F 117 21 145/85 92 100 07/15/17 14:02 07/15/17 14:02 07/15/17 14:02 07/15/17 14:02 07/15/17 14:02 07/15 12:25 Physical Exam: O/E: Gen: Not in any distress, coughs intermittently Neurologic: Pt is drowsy, following simple commands,awake. HEENT: pupils equal, sclera anicteric, trachea midline. Cardiovascular: S1 S2 Respiratory: Decreased BS at bases, left> right, left nares trumpet, NGT present Abdomen: Soft, NT, obese Extremities: Warm, chronic skin changes Fluid Balance (Past 24 Hours): I= 940 O= 650 Net -290 Intake & Output 07/13/17 07/14/17 07/15/17 07/16/17 06:59 06:59 06:59 06:59 Intake Total 2269 2950 4076 940 Output Total 590 1575 1555 650 Balance 1679 1375 2521 290 Weight 237 lb 10.533 oz 246 lb 0.574 oz 242 lb 15.19 oz Intake: IV Fluids 1359 622 543 434 ABX - ZOSYN 325 40 54 D5 W/ 40KCL 970 577 503 326 NS (0.9%) 64 45 54 IVPB 424 1257 1235 ABX - ZOSYN 40 203 301 D5 W/ 40KCL 384 867 877 NS (0.9%) 187 57 Medicated IV 211 KCl 211 Oral 0 Tube Feeding 641 1058 256 Tube Feeding Flush Amount 430 1240 250 Escobedo Irrigate Amount 275 Output: Urine 650 [place] 590 1575 1555 Other: Date of Last Bowel 07/14/2017 t Movement # Bowel Movements 1 1 2 Estimated Stool Amount Small Medium Large Labs: Laboratory Results - last 24 hr 07/15/17 07/15/17 12:00 12:00 WBC 9.9 RBC 5.12 Hgb 15.9 Hct 52 MCV 102 H MCH 31 MCHC 31 RDW 17 H Plt Count 187 MPV 12 H Sodium 153 H Potassium 3.9 Chloride 118 H Carbon Dioxide 32 Anion Gap 3 BUN 18 Creatinine 0.70 Est GFR ( Amer) 150.6 Est GFR (Non-Af Amer) 117.1 BUN/Creatinine Ratio 25.7 H Glucose 117 H Calcium 8.8 Studies: CXR 07/13: Left lower lobe atlectasis and slight shift of medistinum Nutrition: Tube feeds Impression: ASSESSMENT: 56 y o obese M, smoker also with ETOH abuse a/w worsening SOB found to have acute hypoxic resp failure secondary to sever bronchomalacia, mucus plugging s/p extubation, currently on high flow. Acute hypoxic resp failure -improving Acute pulm edema-improving Hypernatremia- improving Atelectasis Severe TBM B/l pleural effusions s/p thoracentesis COPD PCV Anasarca Plan: PLAN: Neurologic: Improving slowly, still not back to baseline, able to protect airway , follows simple commands, fall precautions Cardiovascular: Hemodynamically stable Respiratory: HFO2, doubt if will be able to titrate much further given significant tracheomalacia and atelctasis. Gastrointestinal: c/w NGT feeds and free water. Will stop D5 and change to normal saline Renal/Metabolic: Free water replacement for hypernatremia, k replacement as needed. Infectious Disease: Completed zosyn for bronchitits , last dose today. Leucocytosis resolved Hematology: asa via ngt. Polycythemia s/p phlebotomy, f/u Hcrt Endocrine: Monitor Bl sugars closely Musculoskeletal: OOB to chair as tolerated, PT when more alert and able to follow commands Psych/Social: Will discuss with family. Supportive and preventative care as ordered. SUP: H2 VTE prophylaxis: Arixtra Escobedo catheter given critical illness, monitoring needs for accurate assessment of ANNETTE and KDIGO criteria for critically ill patients and to avoid potential harms of urinary retention, skin breakdown/ulcers. Disposition: ICU for now Code Status: DNR/DNI Critical Care Time: 40 min
[2017-07-15] MEDS: LORazepam INJ* 2 MG/ML 1 ML VIAL IV PUSH PRN (23:48)
[2017-07-16] MEDS: Saline FLUSH-CENTRAL* 10 ML SYRINGE CENT\\PICC SCH ×2 (00:23→15:08)
[2017-07-16] MEDS: fentaNYL* 50 MCG/ML 2 ML VIAL (100 MCG VIAL) IV SLOW PU PRN ×3 (00:28→13:21)
[2017-07-16] MEDS: hydrALAZINE IV* 20 MG/ML VIAL IV PRN ×3 (03:28→12:09)
[2017-07-16] MEDS: Albuterol 2.5 MG/3 ML NEB.SOL* (0.083%) INH SCH ×4 (03:34→14:22)
[2017-07-16 05:58] LABS: BUN/Creatinine Ratio 22.5 (8-20); Calcium 8.9 mg/dL (8.6-10.3); EGFR African American 148.1 (>60); EGFR Non-African American 115.2 (>60); Potassium 3.6 mmol/L (3.5-5.0)
[2017-07-16] MEDS: LORazepam INJ* 2 MG/ML 1 ML VIAL IV PUSH PRN (06:11)
[2017-07-16] MEDS: fentaNYL Patch Check Q Shift 1 NOTE SCH (07:16)
[2017-07-16] MEDS: Haloperidol LIQ* 10 MG/5 ML UDC PO PRN ×2 (08:30→12:53)
[2017-07-16] MEDS ORDERED: Thiamine TAB* 100 MG TAB PO SCH (09:00)
[2017-07-16] MEDS ORDERED: Folic Acid TAB* 1 MG PO SCH (09:00)
--- NOTE | 2017-07-16 09:07 | PN ---
Critical Care Services: CCM progress note Date of service: 07/16/17, Time: 9:00 am Pt seen and examined at bedside. Pt has remained aggitated overnight, has mittens palced as he was trying to pull NGT and BiPAP mask. He has received Fentanyl and Ativan. He was placed on high flow for few hrs last night and was transitioned to BiPAP this am. Had fever spike yesterday, bl. cx were repeated Vital Signs: Temp Pulse Resp BP SpO2 FiO2 100.2 F 126 24 188/108 96 70 07/16/17 07:00 07/16/17 07:22 07/16/17 07:22 07/16/17 07:00 07/16/17 07:22 07/16 07:22 Physical Exam: Gen: Obese male, alert, not communicative, slightly aggitated HEENT: No JVD, Mucus membranes moist Lungs: Distant breath sounds, no wheeze Cardiac: S1, S2+, slightly tachycardic Abdomen: Obese, BS+, NT Extremities: Trace edema present Neuro: Opens eyes, does not follow commands Fluid Balance (Past 24 Hours): I= 1680 V=5098 Net -75 Intake & Output 07/14/17 07/15/17 07/16/17 07/17/17 06:59 06:59 06:59 06:59 Intake Total 2950 4076 1680 Output Total 1575 1555 1755 Balance 1375 2521 -75 Weight 246 lb 0.574 oz 242 lb 15.19 oz 242 lb Intake: IV Fluids 622 543 434 ABX - ZOSYN 40 54 D5 W/ 40KCL 577 503 326 NS (0.9%) 45 54 IVPB 1257 1235 ABX - ZOSYN 203 301 D5 W/ 40KCL 867 877 NS (0.9%) 187 57 Tube Feeding 641 1058 396 Tube Feeding Flush Amount 430 1240 850 Output: Urine 650 Escobedo 1575 1555 1105 Other: Date of Last Bowel 07/14/2017 07/16/17 Movement # Bowel Movements 1 1 2 Estimated Stool Amount Small Medium Medium Labs: Laboratory Results - last 24 hr 07/15/17 07/15/17 07/16/17 12:00 12:00 04:45 WBC 9.9 RBC 5.12 Hgb 15.9 Hct 52 MCV 102 H MCH 31 MCHC 31 RDW 17 H Plt Count 187 MPV 12 H Sodium 153 H 154 H Potassium 3.9 3.6 Chloride 118 H 119 H Carbon Dioxide 32 32 Anion Gap 3 3 BUN 18 16 Creatinine 0.70 0.71 Est GFR ( Amer) 150.6 148.1 Est GFR (Non-Af Amer) 117.1 115.2 BUN/Creatinine Ratio 25.7 H 22.5 H Glucose 117 H 150 H Calcium 8.8 8.9 Impression: Impression: ASSESSMENT: 56 y o obese M, smoker also with ETOH abuse a/w worsening SOB found to have acute hypoxic resp failure secondary to sever bronchomalacia, mucus plugging s/p extubation, currently on high flow and intermittent BiPAP. Acute hypoxic resp failure -improving, remains extubated, still needing high FiO2 Acute pulm edema-improving Hypernatremia- improving with free water Atelectasis due TBM, intermittent positive pressure Severe TBM B/l pleural effusions s/p thoracentesis COPD PCV, slightly improved Anasarca Delirium - ICU delirium along with chronic ETOH abuse contributing Plan: Plan: Neurologic: Improving slowly, still not back to baseline, has been more aggitated since yesterday, able to protect airway, received Ativan and Fentanyl last night. Will start Haldol Cardiovascular: Hemodynamically stable , tacycardic and tachypneic from agitation, was started on hydralazine. Respiratory: HFO2, doubt if will be able to titrate much further given significant tracheomalacia and atelctasis. BiPAP prn and high flow Gastrointestinal: c/w NGT feeds and free water. Renal/Metabolic: Free water replacement for hypernatremia, k replacement as needed. Hypernatremia improving Infectious Disease: Completed 5 day course of zosyn for bronchitits. Leucocytosis resolved. Had fever spike, bl cx and urine cx repeated Hematology: asa via ngt. Polycythemia s/p phlebotomy, f/u Hcrt. Macrocytic picture, was started on thiamine and folate Endocrine: Monitor Bl sugars closely Musculoskeletal: OOB to chair as tolerated, PT when more alert and able to follow commands Psych/Social: Will discuss with family. His son to arrive today Supportive and preventative care as ordered. SUP: H2 VTE prophylaxis: Arixtra Escobedo catheter given critical illness, monitoring needs for accurate assessment of ANNETTE and KDIGO criteria for critically ill patients and to avoid potential harms of urinary retention, skin breakdown/ulcers. Disposition: ICU for now Code Status: DNR/DNI Critical Care Time: 30 min
[2017-07-16] MEDS: Famotidine IV* 10 MG/ML 2 ML (20 mg) IV SLOW PU SCH (09:26)
[2017-07-16] MEDS: Spironolactone TAB* 25 MG G TUBE SCH (09:26)
[2017-07-16] MEDS: Aspirin EC Low Dose* 81 MG TAB.EC PO SCH (09:26)
[2017-07-16] MEDS: Fondaparinux* 2.5 MG/0.5 ML SYRINGE SUBCUT SCH (09:26)
[2017-07-16] MEDS: Mometasone/Formoter 100/5 MDI INH SCH (09:55)
[2017-07-16] MEDS: Tiotropium CAP.INH* CAP.INH/18 MCG (USE ORDER SET !) INH SCH (09:56)
[2017-07-16] MEDS: Acetaminophen ADULT LIQ* 650 MG/20.3 ML UDC PO PRN (13:21)
[2017-07-16 15:11] VITALS: BP 104/66
[2017-07-16] MEDS ORDERED: Morphine INJ* 4 MG/ML 1 ML SYRINGE IV PRN (15:49)
[2017-07-16] MEDS ORDERED: Morphine PCA ADULT* 5 MG/ML 30 ML PCA SCH (16:00)
[2017-07-16] MEDS ORDERED: Morphine PCA ADULT* 5 MG/ML 30 ML ONE (16:01)
--- NOTE | 2017-07-16 16:03 | PN ---
Progress Note - Progress Note Date of Service: 07/16/17 - [place] update Note: Family meeting held earlier. Pts sons Jim and Wily who is HCP were present. They were updated on pts current condition. Discussed dismal improvement so far and poor prognosis. They have decided on comfort care measures only. Necessary paper work was signed. Spiritual care services offered, they have declined. Pt was started on Morphine drip for comfort. Will d/c BiPAP and other medications. Family at bedside.
--- NOTE | 2017-07-17 02:30 | DS ---
DISCHARGE SUMMARY/EXPIRATION SUMMARY: DATE OF ADMISSION: 06/24/17 DATE OF DISCHARGE/: 07/16/17 TIME OF : 4:30 p.m. REASON FOR : Cardiopulmonary arrest. BRIEF SUMMARY OF HOSPITALIZATION: The patient is a 56-year-old male with significant alcohol and tobacco abuse who was admitted on 06/24/17 for shortness of breath. He has not seen physician for over 10 yrs. He was found to be in acute hypoxic respiratory failure secondary to cardiomyopathy. He decompensated quickly, was intubated. The patient had thoracentesis for pleural effusion management. He was started on broad-spectrum antibiotics for possible pneumonia. He was also receiving treatment for acute COPD exacerbation. The patient continued to worsen. Bronchoscopy revealed severe tracheobronchomalacia. The patient was finally extubated and was started on high flow. He was also needing NIPPV, frequent suctioning, metanebs given significant bronchomalacia and mucus plugging. Despite all agressive measures, he continued to deteriorate. His elder son Wily Chang who was HCP decided on DNR /DNI. He completed course of antibiotics. Was receiving tube feeds and free water through NGT for severe hypernatremia. He has been needing round the clock suctioning and has been dependant on positive pressure to maintain ventilation. Please refer to ICU progress note and other documentation for further details. A family meeting was held with his 2 sons and they have decided on comfort care measures only and requested NIPPV be discontined given poor prognosis inspite of maximal support. Patient was started on Morphine drip for comfort and he very quickly after. He was pronounced on 07/16/17 at 4:30 pm. Family at bedside at time of his . They have declined autopsy. [id number] #: [id number] ELLIE
== END 2017-07-16 16:45 | disposition expired | DRG 120 ==
LOC: ED 14:49 → ICU 17:04
PROVIDERS: ADMIT Hospitalist; ATTEND Internal Medicine
PROC: 5A1955Z Respiratory Ventilation, Greater than 96 Consecutive Hours (ICD-10-PCS; principal; 2017-06-25)
PROC: 0BH17EZ Insertion of Endotracheal Airway into Trachea, Via Natural or Artificial Opening (ICD-10-PCS; 2017-06-25)
PROC: 05HM33Z Insertion of Infusion Device into Right Internal Jugular Vein, Percutaneous Approach (ICD-10-PCS; 2017-06-25)
PROC: B543ZZA Ultrasonography of Right Jugular Veins, Guidance (ICD-10-PCS; 2017-06-25)
PROC: 0BJ08ZZ Inspection of Tracheobronchial Tree, Via Natural or Artificial Opening Endoscopic (ICD-10-PCS; 2017-06-25)
PROC: 0BCB8ZZ Extirpation of Matter from Left Lower Lobe Bronchus, Via Natural or Artificial Opening Endoscopic (ICD-10-PCS; 2017-06-25)
PROC: 0BC88ZZ Extirpation of Matter from Left Upper Lobe Bronchus, Via Natural or Artificial Opening Endoscopic (ICD-10-PCS; 2017-06-25)
PROC: 03HB33Z Insertion of Infusion Device into Right Radial Artery, Percutaneous Approach (ICD-10-PCS; 2017-06-25)
PROC: 0T9B70Z Drainage of Bladder with Drainage Device, Via Natural or Artificial Opening (ICD-10-PCS; 2017-06-26)
PROC: 03H633Z Insertion of Infusion Device into Left Axillary Artery, Percutaneous Approach (ICD-10-PCS; 2017-06-26)
PROC: 0DH67UZ Insertion of Feeding Device into Stomach, Via Natural or Artificial Opening (ICD-10-PCS; 2017-06-29)
PROC: 0W993ZZ Drainage of Right Pleural Cavity, Percutaneous Approach (ICD-10-PCS; 2017-07-02)
PROC: 0BC78ZZ Extirpation of Matter from Left Main Bronchus, Via Natural or Artificial Opening Endoscopic (ICD-10-PCS; 2017-07-07)
PROC: 0BC88ZZ Extirpation of Matter from Left Upper Lobe Bronchus, Via Natural or Artificial Opening Endoscopic (ICD-10-PCS; 2017-07-07)
PROC: 0B9B8ZZ Drainage of Left Lower Lobe Bronchus, Via Natural or Artificial Opening Endoscopic (ICD-10-PCS; 2017-07-13)
PROC: 0B988ZZ Drainage of Left Upper Lobe Bronchus, Via Natural or Artificial Opening Endoscopic (ICD-10-PCS; 2017-07-13)
DX: J96.21 Acute and chronic respiratory failure with hypoxia (principal); J18.9 Pneumonia, unspecified organism; G92 Toxic encephalopathy; J44.0 Chronic obstructive pulmonary disease with (acute) lower respiratory infection; D69.3 Immune thrombocytopenic purpura; I11.0 Hypertensive heart disease with heart failure; T17.590A Other foreign object in bronchus causing asphyxiation, initial encounter; E87.0 Hyperosmolality and hypernatremia; I50.9 Heart failure, unspecified; J44.1 Chronic obstructive pulmonary disease with (acute) exacerbation; I42.9 Cardiomyopathy, unspecified; E87.1 Hypo-osmolality and hyponatremia; F05 Delirium due to known physiological condition; T82.514A Breakdown (mechanical) of infusion catheter, initial encounter; J98.11 Atelectasis; D45 Polycythemia vera; I27.81 Cor pulmonale (chronic); F17.210 Nicotine dependence, cigarettes, uncomplicated; Z96.651 Presence of right artificial knee joint; F12.90 Cannabis use, unspecified, uncomplicated; E87.5 Hyperkalemia; F10.20 Alcohol dependence, uncomplicated; Y90.9 Presence of alcohol in blood, level not specified; E66.9 Obesity, unspecified; D69.6 Thrombocytopenia, unspecified; E87.6 Hypokalemia; D75.89 Other specified diseases of blood and blood-forming organs; R23.0 Cyanosis; J98.01 Acute bronchospasm; Y82.8 Other medical devices associated with adverse incidents; Y92.239 Unspecified place in hospital as the place of occurrence of the external cause; R45.1 Restlessness and agitation; Z66 Do not resuscitate; J40 Bronchitis, not specified as acute or chronic; J98.09 Other diseases of bronchus, not elsewhere classified; I46.9 Cardiac arrest, cause unspecified; Z88.6 Allergy status to analgesic agent; Z82.49 Family history of ischemic heart disease and other diseases of the circulatory system; Z80.41 Family history of malignant neoplasm of ovary; Z82.3 Family history of stroke; Z68.37 Body mass index [BMI] 37.0-37.9, adult
CPT/HCPCS: 31622; 31624; 36415; 36600; 71010; 71275; 76604; 76700; 80048; 80051; 80053; 80061; 80076; 81003; 81015; 82140; 82375; 82607; 82668; 82728; 82803; 83540; 83550; 83605; 83735; 83880; 83930; 83935; 84100; 84300; 84484; 84520; 85025; 85027; 85060; 85610; 85613; 85730; 86140; 87040; 87070; 87086; 87205; 87641; 93005; 93306; 94002; 94003; 94640; 94660; 94667; 94668; 94760; 99223; 99232; A9270-GY; C1751; J0360; J0696; J1100; J1120; J1644; J1650; J1940; J2001; J2060; J2250; J2270; J2310; J2543; J2704; J2920; J2930; J3010; J3411; J3475; J3480; J7060; P9047; Q9967